=== PATIENT | male | born 1990 | race Caucasian/White ===

== ENCOUNTER 2021-05-26 21:24 | Emergency (ER) | payer OTHER, SELFPAY ==
[2021-05-26 21:29] VITALS: BP 125/92; PULSE 99; RESP 16; TEMP 36.9; O2SAT 95; BMI 80.6
--- NOTE | 2021-05-26 22:51 | ED.SKABFB ---
HPI - Skin/Abscess/Foreign Bdy General Chief complaint: Skin/Abscess/Foreign Body Stated complaint: Abscess Time Seen by Provider: 05/26/21 22:32 Source: patient Mode of arrival: ambulatory Limitations: no limitations History of Present Illness HPI narrative: Patient obese with history of recurrent abscesses in the lower part of abdomen wall started having similar in duration for last 1 week got worse last 2 days start draining pus from 2 sites with surrounding erythema no fever no chills Related Data Previous Rx's Medication Instructions Recorded cephalexin 500 mg capsule 500 mg PO QID 10 Days #40 cap 05/26/21 doxycycline hyclate 100 mg tablet 100 mg PO BID #20 tab 05/26/21 ibuprofen 600 mg tablet 600 mg PO Q6H PRN #20 tab 05/26/21 Allergies Allergy/AdvReac Type Severity Reaction Status Date / Time Sulfa (Sulfonamide AdvReac Mild BURNING EAR Unverified 01/26/20 16:23 Antibiotics) [SULFA (SULFONAMIDE ANTIBIOTICS)] Apples Allergy Unknown Itching Uncoded 05/26/21 21:29 Review of Systems Review of Systems: Yes all other systems are reviewed and are negative PMFSH Past Medical History Medical History Anxiety Depression HTN (hypertension) Obesity Social History Social History Advance Directives: No Advance Directives Information Provided: Yes Physical Exam Vital Signs: Vital Signs: Last Vital Signs Temp 98.5 F 05/26/21 21:29 Pulse 99 05/26/21 21:29 Resp 16 05/26/21 21:29 BP 125/92 H 05/26/21 21:29 Pulse Ox 95 05/26/21 21:29 BMI result Body Mass Index 80.6 Const: General: healthy appearing and comfortable Nutritional Appearance: obese Orientation/consciousness: patient oriented x3 Skin: Full body images: 1. inDuration with 2 open abscesses is draining serosanguineous fluid no pus drainage Neuro: General: patient oriented x3 MDM - Skin/Abscess/Foreign Bdy MDM Narrative Medical decision making narrative: Patient with small abscess in the lower part of the abdomen with surrounding erythema and induration I&D was done no pusdrain only the serosanguineous fluid came out patient discharged home on Keflex and doxycycline Procedures Abscess I/D Site: abdomen Side (if applicable): left Local Anesthetic: lidocaine 2% Amount of anesthesia used (mL): 5 Technique: incised with blade Amount of fluid expressed (mL): 2 Sent for culture/gram staining?: No Irrigation: No Packing used?: none Discharge Plan Discharge Clinical Impression: Abscess of skin or subcutaneous tissue Patient Disposition: Home, Self-Care Instructions: Abscess Incision and Drainage (DC) Additional Instructions: Local care as advised keep the area and dry Antibiotics as advised Report to the ER if increased redness or pain/fever Prescriptions: New cephalexin 500 mg capsule 500 mg PO QID 10 Days Qty: 40 RF: 0 ibuprofen 600 mg tablet 600 mg PO Q6H PRN (Reason: pain) Qty: 20 RF: 0 doxycycline hyclate 100 mg tablet 100 mg PO BID Qty: 20 RF: 0 Interventions: ED Discharge Assessment Last Done: 05/26/21 23:34 Discharge Date/Time: 05/26/21 23:36
[2021-05-26] MEDS: Lidocaine HCl 2 % MPF 5 ML VIAL 10 ML INFILTRATI (23:24)
[2021-05-26] MEDS: cephALEXin 500 MG CAPSULE PO (23:24)
== END 2021-05-26 23:36 | disposition home or self-care (01) ==
PROVIDERS: Emergency Provider Internal Medicine; PCP Internal Medicine
DX: L02.211 Cutaneous abscess of abdominal wall (principal); Z79.899 Other long term (current) drug therapy
CPT/HCPCS: 10060; 99284

== ENCOUNTER → 2021-06-24 12:30 | Outpatient (BNVA) | payer OTHER, SELFPAY | PROVIDERS: PCP Internal Medicine; Referring Provider Internal Medicine; Visit Provider Physician Assistant Surgical | DX: E66.01 Morbid (severe) obesity due to excess calories (principal); Z68.45 Body mass index [BMI] 70 or greater, adult | CPT/HCPCS: 99202 ==

== ENCOUNTER → 2021-07-22 15:03 | Outpatient (BNVA) | payer OTHER, SELFPAY | PROVIDERS: PCP Internal Medicine; Visit Provider Physician Assistant Surgical | DX: E66.01 Morbid (severe) obesity due to excess calories (principal); Z68.45 Body mass index [BMI] 70 or greater, adult; Z11.0 Encounter for screening for intestinal infectious diseases | CPT/HCPCS: 99211; 99212 ==

== ENCOUNTER 2021-07-23 16:04 | Outpatient (REF) | payer OTHER, SELFPAY ==
[2021-07-24 16:24] LABS: H Pylori Breath Test Negative (Negative)
== END 2021-07-23 16:05 | disposition home or self-care (01) ==
LOC: HO.LNP 16:04
PROVIDERS: Visit Provider Physician Assistant Surgical
DX: E66.01 Morbid (severe) obesity due to excess calories (principal); Z68.45 Body mass index [BMI] 70 or greater, adult; Z11.0 Encounter for screening for intestinal infectious diseases
CPT/HCPCS: 83013

== ENCOUNTER → 2021-07-31 08:52 | Outpatient (BNVA) | payer OTHER, SELFPAY | PROVIDERS: PCP Internal Medicine; Referring Provider Internal Medicine; Visit Provider Dietitian, Registered | DX: E66.01 Morbid (severe) obesity due to excess calories (principal); Z68.45 Body mass index [BMI] 70 or greater, adult | CPT/HCPCS: 97802 ==

== ENCOUNTER 2021-08-16 14:58 | Emergency (ER) | payer OTHER, SELFPAY ==
[2021-08-16 15:04] VITALS: BP 155/100; PULSE 92; RESP 18; TEMP 37.5; O2SAT 96; BMI 75.2
[2021-08-16 15:20] LABS: Glucose, Whole Blood 400 mg/dL (60-115)
[2021-08-16 15:48] LABS: Influenza A Negative (Negative); Influenza B2 Negative (Negative)
[2021-08-16 19:28] LABS: Basophils Percent Auto 0.1 % (0-2); Eosinophils Percent Auto 0.1 % (0-4); Hematocrit 49.9 % (42.0-52.0); Hemoglobin 16.2 g/dl (14.0-18.0); Imm Gran Abs Auto 0.04 X10*3/uL (0.00-0.03); Imm Gran Pct Auto 0.4 % (0.0-0.4); Lymphocytes Absolute Auto 1.9 X10*3/uL (1.2-4.9); Lymphocytes Percent Auto 17.6 % (20-40); MANUAL DIFF FLAG NO; Mean Corpuscular HGB Conc 32.5 g/dl (31.0-36.0); Mean Corpuscular Hemoglobin 27.7 pg (27.0-33.0); Mean Corpuscular Volume 85.3 fL (80.0-98.0); Mean Platelet Volume 10.3 fL (9.4-12.4); Monocytes Absolute Auto 0.6 X10*3/uL (0.1-1.2); Monocytes Percent Auto 5.5 % (2-11); Neutrophils Absolute Auto 8.1 x10*3/uL (2.0-8.3); Neutrophils Percent Auto 76.3 % (45-73); Platelet Count 253 X10*3/uL (160-400); Red Blood Count 5.85 X10*6/uL (4.60-5.80); Red Cell Distribution Width 15.1 % (11.0-16.0); White Blood Count 10.6 X10*3/uL (4.8-10.8)
[2021-08-16 19:58] LABS: Acetone, serum QL Small (Negative)
[2021-08-16 20:01] LABS: Alanine Aminotransferase 97 U/L (0-40); Albumin Level 4.1 g/dL (3.5-5.0); Alkaline Phosphatase 91 U/L (39-117); Anion Gap 20 (12-20); Aspartate Amino Transferase 78 U/L (5-37); Bilirubin Total 0.8 mg/dL (0.0-1.0); Blood Urea Nitrogen 9 mg/dL (9-16); Calcium 9.7 mg/dL (8.4-10.2); Carbon Dioxide 24 mmol/L (22-29); Chloride 92 mmol/L (96-108); Creatinine Clr Calc Pharmacy 208.5; Estimated Glomerular Filt Rate > 60; Glucose Random 350 mg/dL (60-115); Potassium 5.1 mmol/L (3.3-5.1); Sodium 131 mmol/L (135-145); Total Protein 8.7 g/dL (6.5-8.0)
--- NOTE | 2021-08-16 21:03 | ED.NAVMDI ---
HPI - Nausea/Vomiting/Diarrhea General Chief complaint: Nausea/Vomiting/Diarrhea Stated complaint: not feeling well could be his sugar level Time Seen by Provider: 08/16/21 21:02 Source: patient Mode of arrival: ambulatory Limitations: no limitations History of Present Illness HPI Narrative: 31-year-old male who is a prediabetic came in for evaluation of generalized weakness. Patient has been feeling generally weak with multiple vomiting today Related Data Home Medications Medication Instructions Recorded Confirmed aripiprazole 10 mg tablet (Abilify) 10 mg PO DAILY 06/24/21 07/22/21 hydrochlorothiazide 25 mg tablet 25 mg PO DAILY 06/24/21 07/22/21 Previous Rx's Medication Instructions Recorded metformin 500 mg tablet 500 mg PO BID #20 tab 08/16/21 Allergies Allergy/AdvReac Type Severity Reaction Status Date / Time Sulfa (Sulfonamide AdvReac Mild BURNING EAR Verified 07/22/21 15:38 Antibiotics) [SULFA (SULFONAMIDE ANTIBIOTICS)] Apples Allergy Unknown Itching Uncoded 07/22/21 15:38 PMFSH Past Medical History Medical History Anxiety Depression HTN (hypertension) Obesity Surgical History History of placement of ear tubes Hx of tonsillectomy Family History Family History Mother Diabetes Father Dialysis patient Hypertension Diabetes Sister Obesity Sister Obesity Sister No problems noted. Brother Diabetes Brother No problems noted. Brother No problems noted. Social History Social History Alcohol intake: current Alcohol intake frequency: does not drink Patient Tobacco Use Status: Current someday Tobacco user Tobacco use type: Cigarette Cigarettes Per Day: 2 Substance Use Type: Marijuana Advance Directives: No Advance Directives Information Provided: No Physical Exam Vital Signs: Vital Signs: Last Vital Signs Temp 99.5 F 08/16/21 15:04 Pulse 92 08/16/21 15:04 Resp 18 08/16/21 15:04 BP 155/100 H 08/16/21 15:04 Pulse Ox 96 08/16/21 15:04 BMI result Body Mass Index 75.2 vital signs have been reviewed as appeared to be correct. Blood pressure normal. Heart rate normal. Respiration rate normal. Temperature normal. Oxygen saturation normal. Appearance: Alert. Oriented X3. No acute distress. Head: Normal external exam. Normocephalic. Atraumatic. No Rhodes signs noted. No raccoon eyes noted Eyes: PERRLA. EOMI. Conjunctiva and sclera normal. Eyelids normal. ENT: TM's Normal. Pharynx normal. Uvula midline. Moist mucous membranes. No trismus noted. No drooling noted. No muffled voice noted. Neck: Normal inspection. Neck supple. FROM. No adenopathy. Thyroid Normal. No meningeal signs. No neck mass noted. CVS: Normal heart rate and rhythm. Heart sound normal. No murmurs noted. Pulses normal throughout. Respiratory: No respiratory distress. Painless inspiration. Breath sounds normal. No wheezes/rales/rhonchi noted. Chest nontender. No accessory muscle usage noted or decreased air movement noted. Abdomen: Soft and nontender. Bowel sounds normal in all 4 quadrants. No distention noted. No organomegaly noted. No visible injury noted. Back: No CVA tenderness. Full range of motion noted. Skin: Skin warm and dry. Normal skin color. Normal skin turgor. No rashes/lesions/lacerations noted. Extremities: No lower extremity edema. Extremities exhibit normal range of motion. Extremities nontender. Neuro: Oriented X 3. Cranial nerve exam: II-XII are grossly intact No motor deficit. No sensory deficit. Reflexes normal. Course Course Course Narrative: Assessment and plan. 31-year-old male who is prediabetic came in for evaluation of generalized body ache, nausea, vomiting, nonbloody watery diarrhea. Patient received IV hydration, now able to tolerate p.o. intake. Elevated blood sugar will start the patient on glucose fashion patient already has an appointment with his PCP early next week will start the patient on glucose fashion until he sees his PCP. MDM - Nausea/Vomiting/Diarrhea Medical Records Attestation: I reviewed the patient's medical records. Lab Data Attestation: I reviewed the patient's lab results. Result diagrams: 08/16/21 19:23 08/16/21 19:23 Labs: Lab Results 08/16/21 08/16/21 08/16/21 Range/Units 15:10 15:16 19:23 WBC 10.6 (4.8-10.8) X10*3/uL RBC 5.85 H (4.60-5.80) X10*6/uL Hgb 16.2 (14.0-18.0) g/dl Hct 49.9 (42.0-52.0) % MCV 85.3 (80.0-98.0) fL MCH 27.7 (27.0-33.0) pg MCHC 32.5 (31.0-36.0) g/dl RDW 15.1 (11.0-16.0) % Plt Count 253 (160-400) X10*3/uL MPV 10.3 (9.4-12.4) fL Immature Gran % (Auto) 0.4 (0.0-0.4) % Neut % (Auto) 76.3 H (45-73) % Lymph % (Auto) 17.6 L (20-40) % Geary % (Auto) 5.5 (2-11) % Eos % (Auto) 0.1 (0-4) % Baso % (Auto) 0.1 (0-2) % Lymph # (Auto) 1.9 (1.2-4.9) X10*3/uL Geary # (Auto) 0.6 (0.1-1.2) X10*3/uL Eos # (Auto) 0.0 (0.0-0.4) X10*3/uL Baso # (Auto) 0.0 (0.0-0.2) X10*3/uL Abs Immat Gran (auto) 0.04 H (0.00-0.03) X10*3/uL Absolute Neuts (auto) 8.1 (2.0-8.3) x10*3/uL Absolute Nucleated RBC 0.000 (0.0-0.012) X10*3/uL Nucleated RBC % (auto) 0.0 (0.0-0.2) /100WBC Sodium (135-145) mmol/L Potassium (3.3-5.1) mmol/L Chloride (96-108) mmol/L Carbon Dioxide (22-29) mmol/L Anion Gap (12-20) BUN (9-16) mg/dL Creatinine (0.5-1.4) mg/dL Estim Creat Clear Calc Estimated GFR POC Glucose 400 H* (60-115) mg/dL Random Glucose (60-115) mg/dL Calcium (8.4-10.2) mg/dL Total Bilirubin (0.0-1.0) mg/dL AST (5-37) U/L ALT (0-40) U/L Alkaline Phosphatase (39-117) U/L Total Protein (6.5-8.0) g/dL Albumin (3.5-5.0) g/dL Acetone, Qual (Negative) Influenza Type A (YAHIR) Negative (Negative) Influenza Type B (YAHIR) Negative (Negative) Influenza A & B Note See Note 08/16/21 08/16/21 08/16/21 Range/Units 19:23 22:26 23:25 WBC (4.8-10.8) X10*3/uL RBC (4.60-5.80) X10*6/uL Hgb (14.0-18.0) g/dl Hct (42.0-52.0) % MCV (80.0-98.0) fL MCH (27.0-33.0) pg MCHC (31.0-36.0) g/dl RDW (11.0-16.0) % Plt Count (160-400) X10*3/uL MPV (9.4-12.4) fL Immature Gran % (Auto) (0.0-0.4) % Neut % (Auto) (45-73) % Lymph % (Auto) (20-40) % Geary % (Auto) (2-11) % Eos % (Auto) (0-4) % Baso % (Auto) (0-2) % Lymph # (Auto) (1.2-4.9) X10*3/uL Geary # (Auto) (0.1-1.2) X10*3/uL Eos # (Auto) (0.0-0.4) X10*3/uL Baso # (Auto) (0.0-0.2) X10*3/uL Abs Immat Gran (auto) (0.00-0.03) X10*3/uL Absolute Neuts (auto) (2.0-8.3) x10*3/uL Absolute Nucleated RBC (0.0-0.012) X10*3/uL Nucleated RBC % (auto) (0.0-0.2) /100WBC Sodium 131 L (135-145) mmol/L Potassium 5.1 (3.3-5.1) mmol/L Chloride 92 L (96-108) mmol/L Carbon Dioxide 24 (22-29) mmol/L Anion Gap 20 (12-20) BUN 9 (9-16) mg/dL Creatinine 0.85 (0.5-1.4) mg/dL Estim Creat Clear Calc 208.5 Estimated GFR > 60 POC Glucose 359 H* 318 H (60-115) mg/dL Random Glucose 350 H* (60-115) mg/dL Calcium 9.7 (8.4-10.2) mg/dL Total Bilirubin 0.8 (0.0-1.0) mg/dL AST 78 H (5-37) U/L ALT 97 H (0-40) U/L Alkaline Phosphatase 91 (39-117) U/L Total Protein 8.7 H (6.5-8.0) g/dL Albumin 4.1 (3.5-5.0) g/dL Acetone, Qual Small H (Negative) Influenza Type A (YAHIR) (Negative) Influenza Type B (YAHIR) (Negative) Influenza A & B Note Discharge Plan Discharge Clinical Impression: Morbid obesity with BMI of 70 and over, adult, Gastroenteritis, Diabetes Patient Disposition: Home, Self-Care Instructions: Diabetes and Nutrition (ED) Prescriptions: New metformin 500 mg tablet 500 mg PO BID Qty: 20 0RF No Action aripiprazole [Abilify] 10 mg tablet 10 mg PO DAILY 0RF hydrochlorothiazide 25 mg tablet 25 mg PO DAILY 0RF Referrals: Nader Cortes III, MD [Primary Care Provider] -
[2021-08-16] MEDS: metFORMIN HCl 1,000 MG TABLET 1000 MG PO (22:21)
[2021-08-16] MEDS: 0.9 % Sodium Chloride 1,000 ML 999 ML IV ×2 (22:22→23:40)
[2021-08-16 22:30] LABS: Glucose, Whole Blood 359 mg/dL (60-115)
[2021-08-16 23:31] LABS: Glucose, Whole Blood 318 mg/dL (60-115)
[2021-08-16] MEDS: Insulin Lispro 100 UNIT/ML 3 ML VIAL SUBCUT (23:40)
[2021-08-17 00:19] VITALS: BP 168/92; PULSE 97; RESP 16; O2SAT 94
[2021-08-17 00:39] LABS: Glucose, Whole Blood 296 mg/dL (60-115)
== END 2021-08-17 00:52 | disposition home or self-care (01) ==
PROVIDERS: Emergency Provider Emergency Medicine; PCP Internal Medicine
DX: E66.01 Morbid (severe) obesity due to excess calories (principal); K52.9 Noninfective gastroenteritis and colitis, unspecified; E11.9 Type 2 diabetes mellitus without complications; R11.2 Nausea with vomiting, unspecified; Z68.45 Body mass index [BMI] 70 or greater, adult; Z79.899 Other long term (current) drug therapy; Z79.84 Long term (current) use of oral hypoglycemic drugs; F17.210 Nicotine dependence, cigarettes, uncomplicated; Z71.6 Tobacco abuse counseling
CPT/HCPCS: 36415; 80053; 82009; 82947; 85025; 87502; 96360; 96361; 99283; 99284

== ENCOUNTER → 2021-08-29 08:12 | Outpatient (BNVA) | payer OTHER, SELFPAY | PROVIDERS: PCP Internal Medicine; Referring Provider Physician Assistant Surgical; Visit Provider Dietitian, Registered | DX: E66.01 Morbid (severe) obesity due to excess calories (principal); Z68.45 Body mass index [BMI] 70 or greater, adult | CPT/HCPCS: 97803 ==

== ENCOUNTER 2021-09-25 10:00 | Outpatient (REF) | payer OTHER, SELFPAY ==
--- NOTE | ~2021-09-25 | XR_ITS ---
EXAMINATION: XR chest 2V CLINICAL INFORMATION: Reason for Exam E66.01 - Morbid (severe) obesity due to excess calories COMPARISON: Chest radiograph 05/29/2014 TECHNIQUE: 2 views of the chest XR/XR chest 2V FINDINGS/IMPRESSION: * Clear lungs. * No pneumothorax or pleural effusion. * Unchanged cardiomediastinal silhouette.
--- NOTE | ~2021-09-25 | FL_ITS ---
EXAMINATION: XR FLUOROSCOPY UPPER GI WITH AIR CLINICAL INFORMATION: Morbid obesity. COMPARISON: None TECHNIQUE: Air-contrast upper GI examination. FINDINGS: There is normal apposition of vocal cords while saying E . There is normal elevation of the soft palate while saying candy . Patient swallowed thin and thick barium and half-inch diameter barium tablet without difficulty. No nasopharyngeal reflux or tracheal aspiration was identified. No persistent esophageal stricture is seen. No mucosal abnormality was noted within the esophagus. No hiatal hernia is seen. There was spontaneous gastroesophageal reflux to the level of the thoracic inlet which cleared rapidly. The stomach demonstrated normal distensibility without abnormal mass or ulceration. There was no delay in gastric emptying. The duodenal bulb and sweep appeared unremarkable. FLUOROSCOPY TIME: 1.8 minutes DOSE AREA PRODUCT: 21.355 Gy-cm2 ([place]-centimeter squared) FL/FL upper GI w air IMPRESSION: Spontaneous gastroesophageal reflux which cleared rapidly. Otherwise unremarkable air-contrast upper GI examination.
== END 2021-09-25 10:01 | disposition home or self-care (01) ==
LOC: HO.XRAY 10:00
PROVIDERS: PCP Internal Medicine; Visit Provider Physician Assistant Surgical
DX: E66.01 Morbid (severe) obesity due to excess calories (principal); Z68.45 Body mass index [BMI] 70 or greater, adult
CPT/HCPCS: 71046; 74246

== ENCOUNTER → 2021-09-26 08:16 | Outpatient (BNVA) | payer OTHER, SELFPAY | PROVIDERS: PCP Internal Medicine; Referring Provider Physician Assistant Surgical; Visit Provider Dietitian, Registered | DX: Z13.89 Encounter for screening for other disorder (principal) ==

== ENCOUNTER 2022-01-11 15:41 | Emergency (ER) | payer OTHER, SELFPAY ==
[2022-01-11 15:56] VITALS: BP 122/95; PULSE 101; RESP 20; TEMP 37.2; O2SAT 96; BMI 67.8
[2022-01-11] MEDS: Lidocaine HCl 1 % MPF 2 ML VIAL INFILTRATI ×5 (18:55→19:11)
[2022-01-11 18:59] VITALS: BP 143/83; PULSE 96; RESP 16; O2SAT 97
--- NOTE | 2022-01-11 19:10 | ED.GENADULT ---
HPI - General Adult General Chief complaint: Wound/Laceration Stated complaint: abscess on leg Time Seen by Provider: 01/11/22 18:04 History of Present Illness HPI narrative: patient complains of painful area on left lower leg, he noticed a red small pimple there any squeezed it and now it is more painful and the redness is spreading no fever, no difficulty walking on it no knee pain no ankle pain Patient was recently diagnosed with diabetes and placed on metformin which he took for several weeks but stopped taking it, he has no dizziness no frequent urination no other complaint Related Data Home Medications Medication Instructions Recorded Confirmed aripiprazole 10 mg tablet (Abilify) 10 mg PO DAILY 06/24/21 07/22/21 hydrochlorothiazide 25 mg tablet 25 mg PO DAILY 06/24/21 07/22/21 Previous Rx's Medication Instructions Recorded metformin 500 mg tablet 500 mg PO BID #20 tabs 08/16/21 doxycycline hyclate 100 mg capsule 100 mg PO BID 7 days #14 caps 01/11/22 Allergies Allergy/AdvReac Type Severity Reaction Status Date / Time Sulfa (Sulfonamide AdvReac Mild BURNING EAR Verified 07/22/21 15:38 Antibiotics) [SULFA (SULFONAMIDE ANTIBIOTICS)] Apples Allergy Unknown Itching Uncoded 07/22/21 15:38 Review of Systems Review of Systems: positive for a sore on the left leg Negatives are no fever no chills no dizziness weakness no headache no neck pain no chest pain no abdominal pain no nausea or vomiting no dysuria no urinary frequency Yes all other systems are reviewed and are negative PMFSH Past Medical History PMFSH Narrative: recent history of diabetes, noncompliant with metformin Source: nursing notes reviewed Medical History Anxiety Depression HTN (hypertension) Obesity Surgical History History of placement of ear tubes Hx of tonsillectomy Family History Family History Mother Diabetes Father Dialysis patient Hypertension Diabetes Sister Obesity Sister Obesity Sister No problems noted. Brother Diabetes Brother No problems noted. Brother No problems noted. Social History Social History Alcohol intake: current Alcohol intake frequency: does not drink Patient Tobacco Use Status: Current someday Tobacco user Tobacco use type: Cigarette Cigarettes Per Day: 2 Substance Use Type: Marijuana Advance Directives: No Advance Directives Information Provided: No Physical Exam ED Vital Signs: Vital Signs - 24 hr 01/11/22 15:56 01/11/22 18:59 Temperature 98.9 F Pulse Rate 101 H 96 Respiratory Rate 20 16 Blood Pressure 122/95 H 143/83 H Pulse Oximetry 96 97 Oxygen Delivery Method Room Air Room Air BMI result Body Mass Index 67.8 general appearance comfortable no acute distress Head is normocephalic atraumatic Neck is supple Respiratory no distress The abdomen soft nontender Extremities full range of motion x4 The left leg the anterior lower leg there is a 3 cm x 4 cm area of redness with central fluctuance, there is mild tenderness there is no lymphangitis there is no discharge from the wound Neuro no focal motor sensory deficits, gait and balance are normal and interaction both comprehension and expression are normal Course Course Course Narrative: procedure note the left lower anterior leg abscess is cleansed and irrigated with normal saline, anesthesia is 8 cc of 1% lidocaine A small incision is made, it is probed to break up loculations and pus is drained Packing is placed and dressing is applied Glucose was checked and it was 144 Medical Decision Making Lab Data Labs: Lab Results 01/11/22 Range/Units 19:21 POC Glucose 144 H (60-115) mg/dL Discharge Plan Discharge Clinical Impression: Abscess Patient Disposition: Home, Self-Care Additional Instructions: return to the ER in 2 days for packing removal wound check Return any time for spreading redness, worse pain and swelling, fever, any sign of worsening infection any worse condition or any concerns Prescriptions: New doxycycline hyclate 100 mg capsule 100 mg PO BID 7 Days Qty: 14 0RF No Action metformin 500 mg tablet 500 mg PO BID Qty: 20 0RF aripiprazole [Abilify] 10 mg tablet 10 mg PO DAILY hydrochlorothiazide 25 mg tablet 25 mg PO DAILY
[2022-01-11 19:40] LABS: Glucose, Whole Blood 144 mg/dL (60-115)
== END 2022-01-12 08:04 | disposition home or self-care (01) ==
PROVIDERS: Emergency Provider Student in an Organized Health Care Education/Training Program; PCP Internal Medicine
DX: L02.416 Cutaneous abscess of left lower limb (principal)
CPT/HCPCS: 10060; 82947; 99283; 99284

== ENCOUNTER 2022-04-22 15:43 | Inpatient (IN) | payer OTHER, SELFPAY ==
--- NOTE | ~2022-04-22 | XR_ITS ---
EXAMINATION: XR CHEST CLINICAL INFORMATION: Elevated glucose COMPARISON: 09/25/2021 TECHNIQUE: 2 views of the chest were obtained. FINDINGS: No significant abnormality is noted involving the heart, lungs, mediastinum, bony thorax or soft tissues. XR/XR chest 2V IMPRESSION: Unremarkable examination.
--- NOTE | ~2022-04-22 | XR_ITS ---
EXAMINATION: LUMBAR SPINE AND SACRUM WITH COCCYX CLINICAL INFORMATION: Fall with back and buttocks pain COMPARISON: None TECHNIQUE: 3 views lumbar spine, 3 views sacrum and coccyx FINDINGS: Lumbar spine appears unremarkable. Some minimal spondylitic endplate changes are seen in the lower thoracic spine and to a lesser extent in the lumbar spine. Vertebral body heights and disc spaces are well preserved. No fractures are seen. The sacrum and coccyx appear normal. No fractures or bony destructive lesions are seen. XR/XR sacrum coccyx min 2V IMPRESSION: No evidence of a traumatic osseous injury. Mild degenerative changes as described above.
--- NOTE | ~2022-04-22 | US_ITS ---
EXAMINATION: US VENOUS ULTRASOUND WITH DOPPLER LOWER EXTREMITY, LEFT CLINICAL INFORMATION: Left leg swelling with calf pain COMPARISON: None TECHNIQUE: Ultrasound of the deep veins is performed from the hip to the calf with compression sonography and color and pulse Doppler assessment. Spectral analysis with color-flow imaging is performed. FINDINGS: There is normal venous compression and respiratory variation and augmented flow. The visualized common femoral vein, superficial femoral vein, profunda femoral vein, popliteal vein, and the trifurcation region shows no evidence of deep venous thrombosis. Peritoneal vein was not visualized. There is no significant popliteal fossa cyst. Prominent groin nodes are seen. If the patient's symptoms persist, followup ultrasound in 5 days 7 days might be of value to exclude proximal propagation from a non-visualized calf vein. US/US venous duplex LE LT IMPRESSION: No DVT demonstrated in the left lower extremity.
--- NOTE | ~2022-04-22 | XR_ITS ---
EXAMINATION: LUMBAR SPINE AND SACRUM WITH COCCYX CLINICAL INFORMATION: Fall with back and buttocks pain COMPARISON: None TECHNIQUE: 3 views lumbar spine, 3 views sacrum and coccyx FINDINGS: Lumbar spine appears unremarkable. Some minimal spondylitic endplate changes are seen in the lower thoracic spine and to a lesser extent in the lumbar spine. Vertebral body heights and disc spaces are well preserved. No fractures are seen. The sacrum and coccyx appear normal. No fractures or bony destructive lesions are seen. XR/XR lumbar spine 4V min IMPRESSION: No evidence of a traumatic osseous injury. Mild degenerative changes as described above.
[2022-04-22 16:57] VITALS: BP 136/77; PULSE 119; RESP 20; TEMP 36.4; O2SAT 93; BMI 72.1
--- NOTE | 2022-04-22 16:59 | ED_ITS ---
HPI - Recheck/Abnormal Lab/Rx General Chief Complaint: General Medical <KACYE Wisdom - Last Filed: 04/22/22 17:07> Stated Complaint: ?High blood sugar/Leg pain <KACEY Wisdom - Last Filed: 04/22/22 17:07> Time Seen by Provider: 04/22/22 20:54 <KACEY Wisdom - Last Filed: 04/22/22 17:07> Source: patient <Gordy Ruffin MD - Last Filed: 04/23/22 02:09> Mode of arrival: ambulatory <Gordy Ruffin MD - Last Filed: 04/23/22 02:09> Limitations: no limitations <Gordy Ruffin MD - Last Filed: 04/23/22 02:09> History of Present Illness HPI narrative: Patient morbidly obese history of diabetes noncompliant to his medications, schizophrenia stop taking his metformin for about an year as his blood sugar was better did not check his blood sugar for a while but for last few weeks been having increased urination and weakness checked his blood sugar was high started taking metformin off and on today prior to arrival patient blood sugar was 450 after he took his metformin also patient complaining of increased pain and redness of left leg for last few days with chills and subjective fever <Gordy Ruffin MD - Last Filed: 04/23/22 02:09> Related Data Home Medications: Home Medications Medication Instructions Recorded Confirmed aripiprazole 10 mg tablet (Abilify) 10 mg PO DAILY 06/24/21 07/22/21 hydrochlorothiazide 25 mg tablet 25 mg PO DAILY 06/24/21 07/22/21 Previous Rx's Medication Instructions Recorded metformin 500 mg tablet 500 mg PO BID #20 tabs 08/16/21 doxycycline hyclate 100 mg capsule 100 mg PO BID 7 days #14 caps 01/11/22 <KACEY Wisdom - Last Filed: 04/22/22 17:07> Allergies/Adverse Reactions: Allergies Allergy/AdvReac Type Severity Reaction Status Date / Time Sulfa (Sulfonamide AdvReac Mild BURNING EAR Verified 07/22/21 15:38 Antibiotics) [SULFA (SULFONAMIDE ANTIBIOTICS)] Apples Allergy Unknown Itching Uncoded 07/22/21 15:38 <KACEY Wisdom - Last Filed: 04/22/22 17:07> Review of Systems Review of Systems: Yes all other systems are reviewed and are negative <Gordy Ruffin MD - Last Filed: 04/23/22 02:09> [facility] Past Medical History Medical History: Medical History Anxiety Depression HTN (hypertension) Obesity <KACEY Wisdom - Last Filed: 04/22/22 17:07> Surgical History: Surgical History History of placement of ear tubes Hx of tonsillectomy <KACEY Wisdom - Last Filed: 04/22/22 17:07> Family History Family History: Family History Mother Diabetes Father Dialysis patient Hypertension Diabetes Sister Obesity Sister Obesity Sister No problems noted. Brother Diabetes Brother No problems noted. Brother No problems noted. <KACEY Wisdom - Last Filed: 04/22/22 17:07> Social History Social History: Social History Alcohol intake: current Alcohol intake frequency: a few times a month Alcohol type: hard liquor Patient Tobacco Use Status: Current someday Tobacco user Tobacco use type: Cigarette Cigarettes Per Day: 2 Smoked in Last 30 Days: Yes Use of substances other than those prescribed or required for medical reasons: Yes Substance Use Type: Marijuana Substance Use Frequency: Chronic Longstanding Advance Directives: No Advance Directives Information Provided: No <KACEY Wisdom - Last Filed: 04/22/22 17:07> Physical Exam Vital Signs: Vital Signs: Last Vital Signs Temp 98.3 F 04/22/22 21:13 Pulse 123 H 04/22/22 21:13 Resp 28 H 04/22/22 21:13 BP 148/88 H 04/22/22 21:13 Pulse Ox 94 04/22/22 21:13 O2 Del Method 04/22/22 21:13 BMI result Body Mass Index 72.1 <KACEY Wisdom - Last Filed: 04/22/22 17:07> Vital Signs: Last Vital Signs Temp 98.3 F 04/22/22 21:13 Pulse 123 H 04/22/22 21:13 Resp 28 H 04/22/22 21:13 BP 148/88 H 04/22/22 21:13 Pulse Ox 94 04/22/22 21:13 O2 Del Method 04/22/22 21:13 BMI result Body Mass Index 72.1 <Gordy Ruffin MD - Last Filed: 04/23/22 02:09> Appearance: Alert. Oriented X3. No acute distress. Obese Eyes: PERRLA, No Nystagmus ENT: Pharynx normal. Oral Mucosa moist Neck: Normal inspection. Neck supple. CVS: Normal heart rate and rhythm. Pulses normal. Respiratory: No respiratory distress. Equal air entry bilateral, no wheezing/rales/rhonchi Abdomen: Soft and nontender. Bowel sounds are present, no mass palpable, no CVA tenderness Skin: Skin warm and dry. Normal skin color. Normal skin turgor. Extremities: Bilateral nonpitting leg edema increased warmth and redness left lower extremity with chronic venous insufficiency changes slight tenderness Neuro: Oriented X 3. No motor deficit. 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 Reports he also had an episode of nausea vomiting last night. He was dizzy today and he fell onto his buttocks and is having coccyx pain. Denies head injury or loss of consciousness or prolonged down time. Also reports his left leg/calf is tender and his legs are swollen. He reports that he is concern for blood clot. Reports he has been very depressed as well. Denies any SI/HI/auditory visualizations thoughts of self- injury. Plan: Labs including acetone level, UA, POC, chest x-ray, EKG and venous duplex ultrasound of left lower extremity. Patient is stable will be sent back to the waiting room for further evaluation treatment the main ER. <KACEY Wisdom - Last Filed: 04/22/22 17:07> Medications Administered Generic Name Dose Route Start Last Admin Trade Name Maddi PRN Reason Stop Dose Admin Enoxaparin Sodium 40 mg 04/22/22 23:15 04/22/22 23:55 Enoxaparin Sodium 40 Mg/0.4 Ml Syringe SUBCUT 40 mg Q12H MALICK Administration Cefazolin Sodium/Dextrose 2 gm in 50 mls @ 100 mls/hr 04/22/22 23:15 04/23/22 00:52 Ancef IV 100 mls/hr Q8H MALICK Administration Lactated Ringer's 1,000 mls @ 100 mls/hr 04/22/22 23:15 04/23/22 00:55 Lr IVCONT 100 mls/hr .Q10H MALICK Administration Sodium Chloride 3 ml 04/23/22 00:00 04/23/22 00:09 0.9 % Sodium Chloride Flush 3 Ml Syringe IVFLUSH 3 ml QSHIFT MALICK Administration Discontinued Medications Generic Name Dose Route Start Last Admin Trade Name Maddi PRN Reason Stop Dose Admin Vancomycin HCl 2,000 mg in 520 mls @ 260 mls/hr 04/22/22 21:11 04/22/22 23:55 Vancomycin/Ns IV 04/22/22 23:10 260 mls/hr ONCE ONE Administration Cefepime HCl 2 gm/ Sodium 50 mls @ 100 mls/hr 04/22/22 21:13 04/22/22 23:12 Chloride IV 04/22/22 21:42 Infused ONCE ONE Infusion Sodium Chloride 1,000 mls @ 999 mls/hr 04/22/22 21:14 04/22/22 23:42 Ns IV 04/22/22 22:14 Infused .Q1H1M ONE Infusion Sodium Chloride 1,000 mls @ 999 mls/hr 04/22/22 21:15 04/22/22 23:55 Ns IV 04/22/22 22:15 999 mls/hr .Q1H1M ONE Administration Insulin Glargine 20 unit 04/22/22 21:15 04/22/22 22:33 Insulin Glargine,Hum.Rec.Anlog 100 Unit/Ml 10 Ml Vial SUBCUT 04/22/22 21:16 20 unit ONCE ONE Administration Insulin Human Lispro 14 unit 04/22/22 21:15 04/22/22 22:33 Insulin Lispro 100 Unit/Ml 3 Ml Vial SUBCUT 04/22/22 21:16 14 unit ONCE ONE Administration Insulin Human Lispro 15 unit 04/22/22 23:04 04/23/22 00:50 Insulin Lispro 100 Unit/Ml 3 Ml Vial SUBCUT 04/22/22 23:05 15 unit ONCE ONE Administration <KACEY Wisdom - Last Filed: 04/22/22 17:07> Medications Administered Generic Name Dose Route Start Last Admin Trade Name Maddi PRN Reason Stop Dose Admin Enoxaparin Sodium 40 mg 04/22/22 23:15 04/22/22 23:55 Enoxaparin Sodium 40 Mg/0.4 Ml Syringe SUBCUT 40 mg Q12H MALICK Administration Cefazolin Sodium/Dextrose 2 gm in 50 mls @ 100 mls/hr 04/22/22 23:15 04/23/22 00:52 Ancef IV 100 mls/hr Q8H MALICK Administration Lactated Ringer's 1,000 mls @ 100 mls/hr 04/22/22 23:15 04/23/22 00:55 Lr IVCONT 100 mls/hr .Q10H MALICK Administration Sodium Chloride 3 ml 04/23/22 00:00 04/23/22 00:09 0.9 % Sodium Chloride Flush 3 Ml Syringe IVFLUSH 3 ml QSHIFT MALICK Administration Discontinued Medications Generic Name Dose Route Start Last Admin Trade Name Maddi PRN Reason Stop Dose Admin Vancomycin HCl 2,000 mg in 520 mls @ 260 mls/hr 04/22/22 21:11 04/22/22 23:55 Vancomycin/Ns IV 04/22/22 23:10 260 mls/hr ONCE ONE Administration Cefepime HCl 2 gm/ Sodium 50 mls @ 100 mls/hr 04/22/22 21:13 04/22/22 23:12 Chloride IV 04/22/22 21:42 Infused ONCE ONE Infusion Sodium Chloride 1,000 mls @ 999 mls/hr 04/22/22 21:14 04/22/22 23:42 Ns IV 04/22/22 22:14 Infused .Q1H1M ONE Infusion Sodium Chloride 1,000 mls @ 999 mls/hr 04/22/22 21:15 04/22/22 23:55 Ns IV 04/22/22 22:15 999 mls/hr .Q1H1M ONE Administration Insulin Glargine 20 unit 04/22/22 21:15 04/22/22 22:33 Insulin Glargine,Hum.Rec.Anlog 100 Unit/Ml 10 Ml Vial SUBCUT 04/22/22 21:16 20 unit ONCE ONE Administration Insulin Human Lispro 14 unit 04/22/22 21:15 04/22/22 22:33 Insulin Lispro 100 Unit/Ml 3 Ml Vial SUBCUT 04/22/22 21:16 14 unit ONCE ONE Administration Insulin Human Lispro 15 unit 04/22/22 23:04 04/23/22 00:50 Insulin Lispro 100 Unit/Ml 3 Ml Vial SUBCUT 04/22/22 23:05 15 unit ONCE ONE Administration <Gordy Ruffin MD - Last Filed: 04/23/22 02:09> Medical Decision Making Medical Decision Making [facility] Narrative: Patient with type 2 diabetes noncompliant to medication nonketotic came elevated blood sugar noticed to have cellulitis of the left lower extremity also will admit patient for IV antibiotics diabetic Education blood sugar control as patient is very noncompliant to be followed up as outpatient <Gordy Ruffin MD - Last Filed: 04/23/22 02:09> Lab Data [facility] Lab Attestation statement: I reviewed the patient's lab results. <Gordy Ruffin MD - Last Filed: 04/23/22 02:09> Result Diagrams: : 04/22/22 22:19 04/22/22 17:46 <KACEY Wisdom - Last Filed: 04/22/22 17:07> Labs: Lab Results 04/22/22 04/22/22 04/22/22 Range/Units 17:46 17:46 17:46 WBC (4.8-10.8) X10*3/uL RBC (4.60-5.80) X10*6/uL Hgb (14.0-18.0) g/dl Hct (42.0-52.0) % MCV (80.0-98.0) fL MCH (27.0-33.0) pg MCHC (31.0-36.0) g/dl RDW (11.0-16.0) % Plt Count (160-400) X10*3/uL MPV (9.4-12.4) fL Immature Gran % (Auto) (0.0-0.4) % Neut % (Auto) (45-73) % Lymph % (Auto) (20-40) % [place] % (Auto) (2-11) % Eos % (Auto) (0-4) % Baso % (Auto) (0-2) % Lymph # (Auto) (1.2-4.9) X10*3/uL [place] # (Auto) (0.1-1.2) X10*3/uL Eos # (Auto) (0.0-0.4) X10*3/uL Baso # (Auto) (0.0-0.2) X10*3/uL Abs Immat Gran (auto) (0.00-0.03) X10*3/uL Absolute Neuts (auto) (2.0-8.3) x10*3/uL Absolute Nucleated RBC (0.0-0.012) X10*3/uL Nucleated RBC % (auto) (0.0-0.2) /100WBC PT (10.0-13.1) SEC INR (0.9-1.1) Sodium 126 L (135-145) mmol/L Potassium 4.6 (3.3-5.1) mmol/L Chloride 94 L (96-108) mmol/L Carbon Dioxide 22 (22-29) mmol/L Anion Gap 15 (12-20) BUN 7 L (9-16) mg/dL Creatinine 1.03 (0.5-1.4) mg/dL Estim Creat Clear Calc 167.2 Estimated GFR > 60 POC Glucose (60-115) mg/dL Random Glucose 483 H* (60-115) mg/dL Estimat Average Glucose 289 mg/dL Hemoglobin A1c % 11.7 % Lactic Acid (0.5-2.0) mmol/L Calcium 8.8 D (8.4-10.2) mg/dL Magnesium 1.6 (1.6-2.6) mg/dL Total Bilirubin 1.3 H (0.0-1.0) mg/dL AST 36 (5-37) U/L ALT 33 (0-40) U/L Alkaline Phosphatase 82 (39-117) U/L B-Natriuretic Peptide 47 (<100) pg/mL Total Protein 7.1 (6.5-8.0) g/dL Albumin 3.6 (3.5-5.0) g/dL Acetone, Qual Negative (Negative) 04/22/22 04/22/22 04/22/22 Range/Units 21:17 21:44 22:19 WBC 14.8 H (4.8-10.8) X10*3/uL RBC 5.13 (4.60-5.80) X10*6/uL Hgb 14.1 (14.0-18.0) g/dl Hct 42.8 (42.0-52.0) % MCV 83.4 (80.0-98.0) fL MCH 27.5 (27.0-33.0) pg MCHC 32.9 (31.0-36.0) g/dl RDW 13.9 (11.0-16.0) % Plt Count 183 D (160-400) X10*3/uL MPV 10.1 (9.4-12.4) fL Immature Gran % (Auto) 0.8 H (0.0-0.4) % Neut % (Auto) 85.1 H (45-73) % Lymph % (Auto) 8.6 L (20-40) % [place] % (Auto) 5.3 (2-11) % Eos % (Auto) 0.0 (0-4) % Baso % (Auto) 0.2 (0-2) % Lymph # (Auto) 1.3 (1.2-4.9) X10*3/uL [place] # (Auto) 0.8 (0.1-1.2) X10*3/uL Eos # (Auto) 0.0 (0.0-0.4) X10*3/uL Baso # (Auto) 0.0 (0.0-0.2) X10*3/uL Abs Immat Gran (auto) 0.12 H (0.00-0.03) X10*3/uL Absolute Neuts (auto) 12.6 H (2.0-8.3) x10*3/uL Absolute Nucleated RBC 0.000 (0.0-0.012) X10*3/uL Nucleated RBC % (auto) 0.0 (0.0-0.2) /100WBC PT (10.0-13.1) SEC INR (0.9-1.1) Sodium (135-145) mmol/L Potassium (3.3-5.1) mmol/L Chloride (96-108) mmol/L Carbon Dioxide (22-29) mmol/L Anion Gap (12-20) BUN (9-16) mg/dL Creatinine (0.5-1.4) mg/dL Estim Creat Clear Calc Estimated GFR POC Glucose 437 H* (60-115) mg/dL Random Glucose (60-115) mg/dL Estimat Average Glucose mg/dL Hemoglobin A1c % % Lactic Acid 1.7 (0.5-2.0) mmol/L Calcium (8.4-10.2) mg/dL Magnesium (1.6-2.6) mg/dL Total Bilirubin (0.0-1.0) mg/dL AST (5-37) U/L ALT (0-40) U/L Alkaline Phosphatase (39-117) U/L B-Natriuretic Peptide (<100) pg/mL Total Protein (6.5-8.0) g/dL Albumin (3.5-5.0) g/dL Acetone, Qual (Negative) 04/22/22 Range/Units 22:19 WBC (4.8-10.8) X10*3/uL RBC (4.60-5.80) X10*6/uL Hgb (14.0-18.0) g/dl Hct (42.0-52.0) % MCV (80.0-98.0) fL MCH (27.0-33.0) pg MCHC (31.0-36.0) g/dl RDW (11.0-16.0) % Plt Count (160-400) X10*3/uL MPV (9.4-12.4) fL Immature Gran % (Auto) (0.0-0.4) % Neut % (Auto) (45-73) % Lymph % (Auto) (20-40) % [place] % (Auto) (2-11) % Eos % (Auto) (0-4) % Baso % (Auto) (0-2) % Lymph # (Auto) (1.2-4.9) X10*3/uL [place] # (Auto) (0.1-1.2) X10*3/uL Eos # (Auto) (0.0-0.4) X10*3/uL Baso # (Auto) (0.0-0.2) X10*3/uL Abs Immat Gran (auto) (0.00-0.03) X10*3/uL Absolute Neuts (auto) (2.0-8.3) x10*3/uL Absolute Nucleated RBC (0.0-0.012) X10*3/uL Nucleated RBC % (auto) (0.0-0.2) /100WBC PT 16.3 H (10.0-13.1) SEC INR 1.4 H (0.9-1.1) Sodium (135-145) mmol/L Potassium (3.3-5.1) mmol/L Chloride (96-108) mmol/L Carbon Dioxide (22-29) mmol/L Anion Gap (12-20) BUN (9-16) mg/dL Creatinine (0.5-1.4) mg/dL Estim Creat Clear Calc Estimated GFR POC Glucose (60-115) mg/dL Random Glucose (60-115) mg/dL Estimat Average Glucose mg/dL Hemoglobin A1c % % Lactic Acid (0.5-2.0) mmol/L Calcium (8.4-10.2) mg/dL Magnesium (1.6-2.6) mg/dL Total Bilirubin (0.0-1.0) mg/dL AST (5-37) U/L ALT (0-40) U/L Alkaline Phosphatase (39-117) U/L B-Natriuretic Peptide (<100) pg/mL Total Protein (6.5-8.0) g/dL Albumin (3.5-5.0) g/dL Acetone, Qual (Negative) <KACEY iWsdom - Last Filed: 04/22/22 17:07> Lab Results 04/22/22 04/22/22 04/22/22 Range/Units 17:46 17:46 17:46 WBC (4.8-10.8) X10*3/uL RBC (4.60-5.80) X10*6/uL Hgb (14.0-18.0) g/dl Hct (42.0-52.0) % MCV (80.0-98.0) fL MCH (27.0-33.0) pg MCHC (31.0-36.0) g/dl RDW (11.0-16.0) % Plt Count (160-400) X10*3/uL MPV (9.4-12.4) fL Immature Gran % (Auto) (0.0-0.4) % Neut % (Auto) (45-73) % Lymph % (Auto) (20-40) % [place] % (Auto) (2-11) % Eos % (Auto) (0-4) % Baso % (Auto) (0-2) % Lymph # (Auto) (1.2-4.9) X10*3/uL [place] # (Auto) (0.1-1.2) X10*3/uL Eos # (Auto) (0.0-0.4) X10*3/uL Baso # (Auto) (0.0-0.2) X10*3/uL Abs Immat Gran (auto) (0.00-0.03) X10*3/uL Absolute Neuts (auto) (2.0-8.3) x10*3/uL Absolute Nucleated RBC (0.0-0.012) X10*3/uL Nucleated RBC % (auto) (0.0-0.2) /100WBC PT (10.0-13.1) SEC INR (0.9-1.1) Sodium 126 L (135-145) mmol/L Potassium 4.6 (3.3-5.1) mmol/L Chloride 94 L (96-108) mmol/L Carbon Dioxide 22 (22-29) mmol/L Anion Gap 15 (12-20) BUN 7 L (9-16) mg/dL Creatinine 1.03 (0.5-1.4) mg/dL Estim Creat Clear Calc 167.2 Estimated GFR > 60 POC Glucose (60-115) mg/dL Random Glucose 483 H* (60-115) mg/dL Estimat Average Glucose 289 mg/dL Hemoglobin A1c % 11.7 % Lactic Acid (0.5-2.0) mmol/L Calcium 8.8 D (8.4-10.2) mg/dL Magnesium 1.6 (1.6-2.6) mg/dL Total Bilirubin 1.3 H (0.0-1.0) mg/dL AST 36 (5-37) U/L ALT 33 (0-40) U/L Alkaline Phosphatase 82 (39-117) U/L B-Natriuretic Peptide 47 (<100) pg/mL Total Protein 7.1 (6.5-8.0) g/dL Albumin 3.6 (3.5-5.0) g/dL Acetone, Qual Negative (Negative) 04/22/22 04/22/22 04/22/22 Range/Units 21:17 21:44 22:19 WBC 14.8 H (4.8-10.8) X10*3/uL RBC 5.13 (4.60-5.80) X10*6/uL Hgb 14.1 (14.0-18.0) g/dl Hct 42.8 (42.0-52.0) % MCV 83.4 (80.0-98.0) fL MCH 27.5 (27.0-33.0) pg MCHC 32.9 (31.0-36.0) g/dl RDW 13.9 (11.0-16.0) % Plt Count 183 D (160-400) X10*3/uL MPV 10.1 (9.4-12.4) fL Immature Gran % (Auto) 0.8 H (0.0-0.4) % Neut % (Auto) 85.1 H (45-73) % Lymph % (Auto) 8.6 L (20-40) % [place] % (Auto) 5.3 (2-11) % Eos % (Auto) 0.0 (0-4) % Baso % (Auto) 0.2 (0-2) % Lymph # (Auto) 1.3 (1.2-4.9) X10*3/uL [place] # (Auto) 0.8 (0.1-1.2) X10*3/uL Eos # (Auto) 0.0 (0.0-0.4) X10*3/uL Baso # (Auto) 0.0 (0.0-0.2) X10*3/uL Abs Immat Gran (auto) 0.12 H (0.00-0.03) X10*3/uL Absolute Neuts (auto) 12.6 H (2.0-8.3) x10*3/uL Absolute Nucleated RBC 0.000 (0.0-0.012) X10*3/uL Nucleated RBC % (auto) 0.0 (0.0-0.2) /100WBC PT (10.0-13.1) SEC INR (0.9-1.1) Sodium (135-145) mmol/L Potassium (3.3-5.1) mmol/L Chloride (96-108) mmol/L Carbon Dioxide (22-29) mmol/L Anion Gap (12-20) BUN (9-16) mg/dL Creatinine (0.5-1.4) mg/dL Estim Creat Clear Calc Estimated GFR POC Glucose 437 H* (60-115) mg/dL Random Glucose (60-115) mg/dL Estimat Average Glucose mg/dL Hemoglobin A1c % % Lactic Acid 1.7 (0.5-2.0) mmol/L Calcium (8.4-10.2) mg/dL Magnesium (1.6-2.6) mg/dL Total Bilirubin (0.0-1.0) mg/dL AST (5-37) U/L ALT (0-40) U/L Alkaline Phosphatase (39-117) U/L B-Natriuretic Peptide (<100) pg/mL Total Protein (6.5-8.0) g/dL Albumin (3.5-5.0) g/dL Acetone, Qual (Negative) 04/22/22 Range/Units 22:19 WBC (4.8-10.8) X10*3/uL RBC (4.60-5.80) X10*6/uL Hgb (14.0-18.0) g/dl Hct (42.0-52.0) % MCV (80.0-98.0) fL MCH (27.0-33.0) pg MCHC (31.0-36.0) g/dl RDW (11.0-16.0) % Plt Count (160-400) X10*3/uL MPV (9.4-12.4) fL Immature Gran % (Auto) (0.0-0.4) % Neut % (Auto) (45-73) % Lymph % (Auto) (20-40) % [place] % (Auto) (2-11) % Eos % (Auto) (0-4) % Baso % (Auto) (0-2) % Lymph # (Auto) (1.2-4.9) X10*3/uL [place] # (Auto) (0.1-1.2) X10*3/uL Eos # (Auto) (0.0-0.4) X10*3/uL Baso # (Auto) (0.0-0.2) X10*3/uL Abs Immat Gran (auto) (0.00-0.03) X10*3/uL Absolute Neuts (auto) (2.0-8.3) x10*3/uL Absolute Nucleated RBC (0.0-0.012) X10*3/uL Nucleated RBC % (auto) (0.0-0.2) /100WBC PT 16.3 H (10.0-13.1) SEC INR 1.4 H (0.9-1.1) Sodium (135-145) mmol/L Potassium (3.3-5.1) mmol/L Chloride (96-108) mmol/L Carbon Dioxide (22-29) mmol/L Anion Gap (12-20) BUN (9-16) mg/dL Creatinine (0.5-1.4) mg/dL Estim Creat Clear Calc Estimated GFR POC Glucose (60-115) mg/dL Random Glucose (60-115) mg/dL Estimat Average Glucose mg/dL Hemoglobin A1c % % Lactic Acid (0.5-2.0) mmol/L Calcium (8.4-10.2) mg/dL Magnesium (1.6-2.6) mg/dL Total Bilirubin (0.0-1.0) mg/dL AST (5-37) U/L ALT (0-40) U/L Alkaline Phosphatase (39-117) U/L B-Natriuretic Peptide (<100) pg/mL Total Protein (6.5-8.0) g/dL Albumin (3.5-5.0) g/dL Acetone, Qual (Negative) <Gordy Ruffin MD - Last Filed: 04/23/22 02:09> Discharge Plan Discharge Clinical Impression: Hyperglycemia due to type 2 diabetes mellitus, Cellulitis of left leg <KACEY Wisdom - Last Filed: 04/22/22 17:07> Patient Disposition: Admitted As Inpatient <KACEY Wisdom - Last Filed: 04/22/22 17:07>
--- NOTE | 2022-04-22 17:01 | ECG_ITS ---
Test Reason : ELEVATED GLUCOSE Blood Pressure : / mmHG Vent. Rate : 121 BPM Atrial Rate : 121 BPM P-R Int : 144 ms QRS Dur : 078 ms QT Int : 284 ms P-R-T Axes : 042 020 013 degrees QTc Int : 403 ms Sinus tachycardia Otherwise normal ECG When compared with ECG of 30-MAY-2019 13:42, Increased rate Referred By: Michaela Myrick Electronically Signed By:SELENA KENDRICK
[2022-04-22 18:19] LABS: Alanine Aminotransferase 33 U/L (0-40); Albumin Level 3.6 g/dL (3.5-5.0); Alkaline Phosphatase 82 U/L (39-117); Anion Gap 15 (12-20); Aspartate Amino Transferase 36 U/L (5-37); Bilirubin Total 1.3 mg/dL (0.0-1.0); Blood Urea Nitrogen 7 mg/dL (9-16); Calcium 8.8 mg/dL (8.4-10.2); Carbon Dioxide 22 mmol/L (22-29); Chloride 94 mmol/L (96-108); Creatinine Clr Calc Pharmacy 167.2; Estimated Glomerular Filt Rate > 60; Glucose Random 483 mg/dL (60-115); Magnesium 1.6 mg/dL (1.6-2.6); Potassium 4.6 mmol/L (3.3-5.1); Sodium 126 mmol/L (135-145); Total Protein 7.1 g/dL (6.5-8.0)
[2022-04-22 18:22] LABS: B Type Natriuretic Peptide 47 pg/mL (<100)
[2022-04-22 18:24] LABS: Acetone, serum QL Negative (Negative)
[2022-04-22 18:33] LABS: Estimated Average Glucose 289 mg/dL; Hemoglobin A1c % 11.7 %
[2022-04-22 21:13] VITALS: BP 148/88; PULSE 123; RESP 28; TEMP 36.8; O2SAT 94
[2022-04-22 21:22] LABS: Glucose, Whole Blood 437 mg/dL (60-115)
[2022-04-22 22:07] LABS: Lactic Acid 1.7 mmol/L (0.5-2.0)
[2022-04-22 22:24] LABS: MANUAL DIFF FLAG NO
[2022-04-22 22:25] LABS: Basophils Percent Auto 0.2 % (0-2); Hematocrit 42.8 % (42.0-52.0); Hemoglobin 14.1 g/dl (14.0-18.0); Imm Gran Abs Auto 0.12 X10*3/uL (0.00-0.03); Imm Gran Pct Auto 0.8 % (0.0-0.4); Lymphocytes Absolute Auto 1.3 X10*3/uL (1.2-4.9); Lymphocytes Percent Auto 8.6 % (20-40); Mean Corpuscular HGB Conc 32.9 g/dl (31.0-36.0); Mean Corpuscular Hemoglobin 27.5 pg (27.0-33.0); Mean Corpuscular Volume 83.4 fL (80.0-98.0); Mean Platelet Volume 10.1 fL (9.4-12.4); Monocytes Absolute Auto 0.8 X10*3/uL (0.1-1.2); Monocytes Percent Auto 5.3 % (2-11); Neutrophils Absolute Auto 12.6 x10*3/uL (2.0-8.3); Neutrophils Percent Auto 85.1 % (45-73); Platelet Count 183 X10*3/uL (160-400); Red Blood Count 5.13 X10*6/uL (4.60-5.80); Red Cell Distribution Width 13.9 % (11.0-16.0); White Blood Count 14.8 X10*3/uL (4.8-10.8)
[2022-04-22 22:31] LABS: INTERNATIONAL NORM RATIO 1.4 (0.9-1.1); Prothrombin Time 16.3 SEC (10.0-13.1)
[2022-04-22] MEDS: 0.9 % Sodium Chloride 1,000 ML 999 ML IV ×2 (22:31→23:55)
[2022-04-22] MEDS: cefEPime HCl 2 GM in 0.9 % Sodium Chloride 50 ML IV (22:31)
[2022-04-22] MEDS: Insulin Lispro 100 UNIT/ML 3 ML VIAL 14 UNIT SUBCUT (22:33)
[2022-04-22] MEDS: Insulin Glargine,Hum.rec.anlog 100 UNIT/ML 10 ML VIAL 20 UNIT SUBCUT (22:33)
--- NOTE | 2022-04-22 22:37 | PC.NURSE ---
pt a&ox3, multiple attempts made by RNs to draw labs/place IV, u/s IV placed, labs obtained, medicated per provider order. no new orders at this time.
[2022-04-22] MEDS: Enoxaparin Sodium 40 MG/0.4 ML SYRINGE SUBCUT (23:55)
--- NOTE | 2022-04-22 23:56 | PC.NURSE ---
Assumed care of patient. Vancomycin already delayed at time of report given.
[2022-04-23] MEDS: 0.9 % Sodium Chloride Flush 3 ML SYRINGE IVFLUSH (00:09)
[2022-04-23 00:40] LABS: Glucose, Whole Blood 353 mg/dL (60-115)
[2022-04-23] MEDS: Insulin Lispro 100 UNIT/ML 3 ML VIAL 15 UNIT SUBCUT (00:50)
[2022-04-23] MEDS: ceFAZolin Sodium/Dextrose,Iso 2 GM/50 ML PIGGYBACK IV ×4 (00:52→22:20)
[2022-04-23] MEDS: Lactated Ringers 1,000 ML 100 ML IVCONT ×3 (00:55→17:59)
[2022-04-23 02:35] VITALS: BP 102/47; PULSE 110; TEMP 37; O2SAT 94
--- NOTE | 2022-04-23 02:40 | PC.NURSE ---
Patiemt is alert amd oriemted.Temds to desat to high 80s O2 while sleepimg. Patiemt placed om 3L masal cammula O2 imcreased to 94%. L leg cellulitis warm to touch.
--- NOTE | 2022-04-23 02:48 | PC.NURSE ---
Resting quietly. No apparent distress. No respiratory distress, able to speak in full sentences.
[2022-04-23 02:53] LABS: Appearance Urine Clear; Color Urine Yellow; Glucose Urine UA >=1000 mg/dL (Negative); Leukocyte Esterase Urine Negative (Negative); Nitrite Urine Negative (Negative); PH 5.5 (5.0-9.0); Specific Gravity - Urine >= 1.030 (1.005-1.025); UMIC TRIGGER UACC YES; Urine Blood Trace (Negative); Urine Ketones 80 mg/dL (Negative); Urine Protein 300 (3+) mg/dL (Neg-Trace)
[2022-04-23 03:07] LABS: Granular Casts Urine Present; RBC Urine 0-2 /HPF (0-2); UACC Culture Trigger YES
[2022-04-23 03:09] LABS: Bacteria Urine Trace (None Seen)
[2022-04-23 06:12] VITALS: BP 100/46; PULSE 117; TEMP 36.8; O2SAT 95
[2022-04-23 06:48] LABS: MANUAL DIFF FLAG NO
[2022-04-23 06:54] LABS: Basophils Percent Auto 0.2 % (0-2); Hemoglobin 13.2 g/dl (14.0-18.0); Imm Gran Abs Auto 0.11 X10*3/uL (0.00-0.03); Imm Gran Pct Auto 0.8 % (0.0-0.4); Lymphocytes Absolute Auto 1.3 X10*3/uL (1.2-4.9); Lymphocytes Percent Auto 9.5 % (20-40); Mean Corpuscular Hemoglobin 27.5 pg (27.0-33.0); Mean Corpuscular Volume 83.3 fL (80.0-98.0); Mean Platelet Volume 10.5 fL (9.4-12.4); Monocytes Absolute Auto 0.6 X10*3/uL (0.1-1.2); Monocytes Percent Auto 4.8 % (2-11); Neutrophils Absolute Auto 11.3 x10*3/uL (2.0-8.3); Neutrophils Percent Auto 84.7 % (45-73); Platelet Count 168 X10*3/uL (160-400); Red Cell Distribution Width 13.9 % (11.0-16.0); White Blood Count 13.3 X10*3/uL (4.8-10.8)
--- NOTE | 2022-04-23 07:17 | P.HPHOSP_ITS ---
History of Present Illness Date of Service: 04/22/22 Chief Complaint: hyperglyceimia, leg infection this is a 31-year-old male with past medical history of type 2 diabetes on metformin, schizophrenia, morbid obesity, hypertension, presents to the hospital with complaints of hyperglycemia as well as lower extremity swelling and pain. Patient reports that he stop taking his metformin about a month ago because his glucose was improving and was normal. He also had diarrhea due to the medication and therefore he stopped with a talking to his doctor. He is complaining of left lower extremity redness, pain that started 3 days ago. Patient reports no injury or trauma. Patient denies any fever or chills, denies any chest pain, no palpitations, no abdominal pain no diarrhea or constipation, no urinary symptoms and no headache or change in vision. On arrival to the ED patient hemodynamically stable with a heart rate of 119, patient also has an elevated respiratory rate of 28, Labs are significant for WBC count of 14.8, PT of 6-3, INR of 1.4, glucose of 483, hemoglobin A1c of 11.7, urine negative for infection ,Lactic acid of 1.7 venous duplex of lower extremity shows no DVT Review of Systems Review of Systems: Yes all other systems are reviewed and are negative PMFSH Medical History Anxiety Depression HTN (hypertension) Hyperglycemia due to type 2 diabetes mellitus Obesity Family History Mother Diabetes Father Dialysis patient Hypertension Diabetes Sister Obesity Sister Obesity Sister No problems noted. Brother Diabetes Brother No problems noted. Brother No problems noted. Surgical History History of placement of ear tubes Hx of tonsillectomy Social History Alcohol intake: current Alcohol intake frequency: a few times a month Alcohol type: hard liquor Patient Tobacco Use Status: Current someday Tobacco user Tobacco use type: Cigarette Cigarettes Per Day: 2 Smoked in Last 30 Days: Yes Use of substances other than those prescribed or required for medical reasons: Yes Substance Use Type: Marijuana Substance Use Frequency: Chronic Longstanding Advance Directives: No Advance Directives Information Provided: No Meds Allergies Allergy/AdvReac Type Severity Reaction Status Date / Time Sulfa (Sulfonamide AdvReac Mild BURNING EAR Verified 07/22/21 15:38 Antibiotics) [SULFA (SULFONAMIDE ANTIBIOTICS)] Apples Allergy Unknown Itching Uncoded 07/22/21 15:38 Active Medications: Current Medications Acetaminophen (Acetaminophen 325 Mg Tablet) 650 mg PO Q6H PRN PRN Reason: Pain, Mild (Pain Scale 1-3) Dextrose (Dextrose 50 % 25 Gm/50 Ml Syringe) 25 gm IVPUSH Q15M PRN; Protocol PRN Reason: per Hypoglycemia Standing Ord. Docusate Sodium (Docusate Sodium 100 Mg Capsule) 100 mg PO DAILY PRN PRN Reason: Constipation Enoxaparin Sodium (Enoxaparin Sodium 40 Mg/0.4 Ml Syringe) 40 mg SUBCUT Q12H [facility] Last Admin: 04/22/22 23:55 Dose: 40 mg Glucose (Glucose Gel 15 Gm Gel..Gram.) 15 gm PO Q15M PRN; Protocol PRN Reason: per Hypoglycemia Standing Ord. Cefazolin Sodium/Dextrose (Ancef) 2 gm in 50 mls @ 100 mls/hr IV Q8H [facility] Last Infusion: 04/23/22 01:35 Dose: Infused Lactated Ringer's (Lr) 1,000 mls @ 100 mls/hr IVCONT .Q10H [facility] Last Admin: 04/23/22 00:55 Dose: 100 mls/hr Insulin Human Lispro (Insulin Lispro 100 Unit/Ml 3 Ml Vial) 0 unit SUBCUT QIDACHS [facility]; Protocol Ondansetron HCl (Ondansetron Hcl 4 Mg/2 Ml Vial) 4 mg IVPUSH Q8H PRN PRN Reason: Nausea and Vomiting Oxycodone HCl (Oxycodone Hcl Immed Release 5 Mg Tablet) 5 mg PO Q6H PRN PRN Reason: Pain, Severe (Pain Scale 7-10) Pharmacy Consult (Consult Rx Vancomycin Dosing) 1 each MISCELLANE DAILY PRN PRN Reason: Consult order Pharmacy Consult (Consult Rx Perform Med Rec) 1 each MISCELLANE ONCE PRN PRN Reason: Consult order Sodium Chloride (0.9 % Sodium Chloride Flush 3 Ml Syringe) 3 ml IVFLUSH QSHIFT [facility] Last Admin: 04/23/22 00:09 Dose: 3 ml Home Medications Medication Instructions Recorded Confirmed Last Taken Type aripiprazole 10 mg tablet (Abilify) 10 mg PO DAILY 06/24/21 07/22/21 Unknown History hydrochlorothiazide 25 mg tablet 25 mg PO DAILY 06/24/21 07/22/21 Unknown History Physical Exam Vital Signs and Narrative: Vital Signs: Last Vital Signs Temp 98.3 F 04/23/22 06:12 Pulse 117 H 04/23/22 06:12 Resp 28 H 04/22/22 21:13 BP 100/46 L 04/23/22 06:12 Pulse Ox 95 04/23/22 06:12 O2 Del Method 04/23/22 06:12 O2 Flow Rate 4 04/23/22 06:12 BMI result Body Mass Index 72.1 Const: General: cooperative and no acute distress Orientation/consciousness: patient oriented x3 Eyes: General: appearance normal, both eyes and all related structures Resp: Effort & Inspection: normal respiratory effort Auscultation: clear to auscultation bilaterally Cardio: Rate: regular rate Rhythm: regular rhythm GI: Palpation (GI): Soft to palpation Auscultation: normal bowel sounds Skin: General skin exam: no rashes or lesions noted Neuro: General: patient oriented x3 Cognition (Neuro): normal cognition Extrem: Other: left lower extremity erythema, tenderness, edema, warmth, extending from the base of the foot all the way to the knee Results Labs CBC and Chem 7: 04/23/22 06:19 04/22/22 17:46 Labs: Laboratory Results - last 24 hr 04/22/22 04/22/22 04/22/22 17:46 17:46 17:46 MCV MCH MCHC RDW Plt Count MPV Immature Gran % (Auto) Neut % (Auto) Lymph % (Auto) [place] % (Auto) Eos % (Auto) Baso % (Auto) Lymph # (Auto) [place] # (Auto) Eos # (Auto) Baso # (Auto) Abs Immat Gran (auto) Absolute Neuts (auto) Absolute Nucleated RBC Nucleated RBC % (auto) PT INR Anion Gap 15 Estim Creat Clear Calc 167.2 Estimated GFR > 60 POC Glucose Random Glucose 483 H* Estimat Average Glucose 289 Hemoglobin A1c % 11.7 Lactic Acid Calcium 8.8 D Magnesium 1.6 Total Bilirubin 1.3 H AST 36 ALT 33 Alkaline Phosphatase 82 B-Natriuretic Peptide 47 Total Protein 7.1 Albumin 3.6 Urine Color Urine Appearance Urine pH Ur Specific [place] Urine Protein Urine Glucose (UA) Urine Ketones Urine Blood Urine Nitrite Ur Leukocyte Esterase Urine RBC Urine WBC Ur Squamous Epith Cells Urine Bacteria Hyaline Casts Granular Casts Acetone, Qual Negative 04/22/22 04/22/22 04/22/22 21:17 21:44 22:19 MCV 83.4 MCH 27.5 MCHC 32.9 RDW 13.9 Plt Count 183 D MPV 10.1 Immature Gran % (Auto) 0.8 H Neut % (Auto) 85.1 H Lymph % (Auto) 8.6 L [place] % (Auto) 5.3 Eos % (Auto) 0.0 Baso % (Auto) 0.2 Lymph # (Auto) 1.3 [place] # (Auto) 0.8 Eos # (Auto) 0.0 Baso # (Auto) 0.0 Abs Immat Gran (auto) 0.12 H Absolute Neuts (auto) 12.6 H Absolute Nucleated RBC 0.000 Nucleated RBC % (auto) 0.0 PT INR Anion Gap Estim Creat Clear Calc Estimated GFR POC Glucose 437 H* Random Glucose Estimat Average Glucose Hemoglobin A1c % Lactic Acid 1.7 Calcium Magnesium Total Bilirubin AST ALT Alkaline Phosphatase B-Natriuretic Peptide Total Protein Albumin Urine Color Urine Appearance Urine pH Ur Specific [place] Urine Protein Urine Glucose (UA) Urine Ketones Urine Blood Urine Nitrite Ur Leukocyte Esterase Urine RBC Urine WBC Ur Squamous Epith Cells Urine Bacteria Hyaline Casts Granular Casts Acetone, Qual 04/22/22 04/23/22 04/23/22 22:19 00:36 02:31 MCV MCH MCHC RDW Plt Count MPV Immature Gran % (Auto) Neut % (Auto) Lymph % (Auto) [place] % (Auto) Eos % (Auto) Baso % (Auto) Lymph # (Auto) [place] # (Auto) Eos # (Auto) Baso # (Auto) Abs Immat Gran (auto) Absolute Neuts (auto) Absolute Nucleated RBC Nucleated RBC % (auto) PT 16.3 H INR 1.4 H Anion Gap Estim Creat Clear Calc Estimated GFR POC Glucose 353 H* Random Glucose Estimat Average Glucose Hemoglobin A1c % Lactic Acid Calcium Magnesium Total Bilirubin AST ALT Alkaline Phosphatase B-Natriuretic Peptide Total Protein Albumin Urine Color Yellow Urine Appearance Clear Urine pH 5.5 Ur Specific [place] >= 1.030 H Urine Protein 300 (3+) H Urine Glucose (UA) >=1000 H Urine Ketones 80 Urine Blood Trace H Urine Nitrite Negative Ur Leukocyte Esterase Negative Urine RBC 0-2 Urine WBC 6-10 H Ur Squamous Epith Cells 3-5 Urine Bacteria Trace Hyaline Casts 6-10 Granular Casts Present Acetone, Qual 04/23/22 06:19 MCV 83.3 MCH 27.5 MCHC 33.0 RDW 13.9 Plt Count 168 MPV 10.5 Immature Gran % (Auto) 0.8 H Neut % (Auto) 84.7 H Lymph % (Auto) 9.5 L [place] % (Auto) 4.8 Eos % (Auto) 0.0 Baso % (Auto) 0.2 Lymph # (Auto) 1.3 [place] # (Auto) 0.6 Eos # (Auto) 0.0 Baso # (Auto) 0.0 Abs Immat Gran (auto) 0.11 H Absolute Neuts (auto) 11.3 H Absolute Nucleated RBC 0.000 Nucleated RBC % (auto) 0.0 PT INR Anion Gap Estim Creat Clear Calc Estimated GFR POC Glucose Random Glucose Estimat Average Glucose Hemoglobin A1c % Lactic Acid Calcium Magnesium Total Bilirubin AST ALT Alkaline Phosphatase B-Natriuretic Peptide Total Protein Albumin Urine Color Urine Appearance Urine pH Ur Specific [place] Urine Protein Urine Glucose (UA) Urine Ketones Urine Blood Urine Nitrite Ur Leukocyte Esterase Urine RBC Urine WBC Ur Squamous Epith Cells Urine Bacteria Hyaline Casts Granular Casts Acetone, Qual Imaging Radiologist's Impressions: Impressions Chest X-Ray 04/22/22 17:30 IMPRESSION: Unremarkable examination. Lumbar Spine X-Ray 04/22/22 17:30 IMPRESSION: No evidence of a traumatic osseous injury. Mild degenerative changes as described above. Sacrum and Coccyx X-Ray 04/22/22 17:30 IMPRESSION: No evidence of a traumatic osseous injury. Mild degenerative changes as described above. Venous Duplex 04/22/22 19:28 IMPRESSION: No DVT demonstrated in the left lower extremity. Assessment and Plan (1) Hyperglycemia: Status: Acute (2) Hyperglycemia due to type 2 diabetes mellitus: Status: Acute (3) Cellulitis of left leg: Status: Acute (4) Sepsis: Status: Acute Plan 31-year-old male with past medical history of diabetes noncompliant with metformin presents to the hospital with complaints of upper glycemia as well as cellulitis of the like # hyperglycemia - secondary to type 2 diabetes and noncompliance - has a hemoglobin A1c of 11.7 - at this time will place patient on low-dose sliding scale insulin - patient will likely require insulin on discharge given his high hemoglobin A1c - diabetic diet, will consult diabetic Education - follow POC t.i.d. a.c. # sepsis - leukocytosis, tachycardic, tachypneic - lactic acid normal, no hypotension - source likely cellulitis - will treat with IV antibiotics - follow cultures # left lower extremity cellulitis - with evidence of systemic infection - will treat with IV antibiotics - venous duplex negative for DVT - follow cultures # hypertension - continue hydrochlorothiazide # mood disorder - continue aripiprazole DVT prophylaxis: Lovenox given patient's hyperglycemia, as well as sepsis and need for IV antibiotics patient will require minimum 2 night inpatient hospital stay for further management and Time Spent With Patient Time: Total time managing care of this patient today ____ minutes. Quality Stroke Does the patient have a stroke diagnosis?: No VTE Prior VTE?: No VTE Risk Level:: Medical - moderate - high VTE Device Contraindication: Treatment Not Indicated VTE Drug Contraindication: N/A - Med Ordered
--- NOTE | 2022-04-23 07:44 | PHA.MEDREC ---
Pharmacy Consult ? Medication Reconciliation Pharmacy has completed the medication reconciliation. Patient used to be on abilify 10mg, metformin 500mg bid, and hctz 25mg, but has not taken them for a few months Pedro Luis
[2022-04-23 07:46] LABS: Anion Gap 12 (12-20); Blood Urea Nitrogen 7 mg/dL (9-16); Carbon Dioxide 25 mmol/L (22-29); Chloride 96 mmol/L (96-108); Estimated Glomerular Filt Rate > 60; Glucose Random 287 mg/dL (60-115); Potassium 4.2 mmol/L (3.3-5.1); Sodium 129 mmol/L (135-145)
[2022-04-23 07:49] VITALS: BP 126/59; PULSE 84; RESP 12; O2SAT 97
[2022-04-23 07:56] LABS: Glucose, Whole Blood 314 mg/dL (60-115)
[2022-04-23] MEDS: Insulin Lispro 100 UNIT/ML 3 ML VIAL SUBCUT ×5 (08:17→22:19)
--- NOTE | 2022-04-23 08:18 | P.PNIM_ITS ---
Subjective Subjective Date of Service: 04/23/22 Interval History: f/u on sepsis/cellulitis, uncontrolled diabetes with hyperglycemia interval history:pain in the leg, Review of Systems no fever no ches apin Physical Exam Vital Signs: Vital Signs: Last Vital Signs Temp 98.3 F 04/23/22 06:12 Pulse 84 04/23/22 07:49 Resp 12 04/23/22 07:49 BP 126/59 L 04/23/22 07:49 Pulse Ox 97 04/23/22 07:49 O2 Del Method 04/23/22 07:49 O2 Flow Rate 4 04/23/22 06:12 BMI result Body Mass Index 72.1 Const: Other: General: AO X 3, no acute distress Resp: CTA bilateral CVS: S1,S2,RRR GI: +BS, NT, no distention Skin: No rash Neuro: motor grossly intact Psych: appropriate affect Objective Data Active Medications Acetaminophen (Acetaminophen 325 Mg Tablet) 650 mg PO Q6H PRN PRN Reason: Pain, Mild (Pain Scale 1-3) Dextrose (Dextrose 50 % 25 Gm/50 Ml Syringe) 25 gm IVPUSH Q15M PRN; Protocol PRN Reason: per Hypoglycemia Standing Ord. Docusate Sodium (Docusate Sodium 100 Mg Capsule) 100 mg PO DAILY PRN PRN Reason: Constipation Enoxaparin Sodium (Enoxaparin Sodium 40 Mg/0.4 Ml Syringe) 40 mg SUBCUT Q12H [facility] Last Admin: 04/22/22 23:55 Dose: 40 mg Documented By: RISHABH Glucose (Glucose Gel 15 Gm Gel..Gram.) 15 gm PO Q15M PRN; Protocol PRN Reason: per Hypoglycemia Standing Ord. Cefazolin Sodium/Dextrose (Ancef) 2 gm in 50 mls @ 100 mls/hr IV Q8H [facility] Last Admin: 04/23/22 08:17 Dose: 100 mls/hr Documented By: BEVERLY Lactated Ringer's (Lr) 1,000 mls @ 100 mls/hr IVCONT .Q10H [facility] Last Admin: 04/23/22 00:55 Dose: 100 mls/hr Documented By: RISHABH Insulin Human Lispro (Insulin Lispro 100 Unit/Ml 3 Ml Vial) 0 unit SUBCUT QIDACHS [facility]; Protocol Last Admin: 04/23/22 08:17 Dose: 8 unit Documented By: BEVERLY Ondansetron HCl (Ondansetron Hcl 4 Mg/2 Ml Vial) 4 mg IVPUSH Q8H PRN PRN Reason: Nausea and Vomiting Oxycodone HCl (Oxycodone Hcl Immed Release 5 Mg Tablet) 5 mg PO Q6H PRN PRN Reason: Pain, Severe (Pain Scale 7-10) Pharmacy Consult (Consult Rx Vancomycin Dosing) 1 each MISCELLANE DAILY PRN PRN Reason: Consult order Pharmacy Consult (Consult Rx Perform Med Rec) 1 each MISCELLANE ONCE PRN PRN Reason: Consult order Sodium Chloride (0.9 % Sodium Chloride Flush 3 Ml Syringe) 3 ml IVFLUSH QSHIFT [facility] Last Admin: 04/23/22 08:18 Dose: Not Given Documented By: BEVERLY Non-Admin Reason: IV Running Labs CBC & Chem 7: 04/23/22 06:19 04/23/22 06:20 Labs: Laboratory Results - last 24 hr 04/22/22 04/22/22 04/22/22 17:46 17:46 17:46 MCV MCH MCHC RDW Plt Count MPV Immature Gran % (Auto) Neut % (Auto) Lymph % (Auto) [place] % (Auto) Eos % (Auto) Baso % (Auto) Lymph # (Auto) [place] # (Auto) Eos # (Auto) Baso # (Auto) Abs Immat Gran (auto) Absolute Neuts (auto) Absolute Nucleated RBC Nucleated RBC % (auto) PT INR Anion Gap 15 Estim Creat Clear Calc 167.2 Estimated GFR > 60 POC Glucose Random Glucose 483 H* Estimat Average Glucose 289 Hemoglobin A1c % 11.7 Lactic Acid Calcium 8.8 D Magnesium 1.6 Total Bilirubin 1.3 H AST 36 ALT 33 Alkaline Phosphatase 82 B-Natriuretic Peptide 47 Total Protein 7.1 Albumin 3.6 Urine Color Urine Appearance Urine pH Ur Specific [place] Urine Protein Urine Glucose (UA) Urine Ketones Urine Blood Urine Nitrite Ur Leukocyte Esterase Urine RBC Urine WBC Ur Squamous Epith Cells Urine Bacteria Hyaline Casts Granular Casts Acetone, Qual Negative 04/22/22 04/22/22 04/22/22 21:17 21:44 22:19 MCV 83.4 MCH 27.5 MCHC 32.9 RDW 13.9 Plt Count 183 D MPV 10.1 Immature Gran % (Auto) 0.8 H Neut % (Auto) 85.1 H Lymph % (Auto) 8.6 L [place] % (Auto) 5.3 Eos % (Auto) 0.0 Baso % (Auto) 0.2 Lymph # (Auto) 1.3 [place] # (Auto) 0.8 Eos # (Auto) 0.0 Baso # (Auto) 0.0 Abs Immat Gran (auto) 0.12 H Absolute Neuts (auto) 12.6 H Absolute Nucleated RBC 0.000 Nucleated RBC % (auto) 0.0 PT INR Anion Gap Estim Creat Clear Calc Estimated GFR POC Glucose 437 H* Random Glucose Estimat Average Glucose Hemoglobin A1c % Lactic Acid 1.7 Calcium Magnesium Total Bilirubin AST ALT Alkaline Phosphatase B-Natriuretic Peptide Total Protein Albumin Urine Color Urine Appearance Urine pH Ur Specific [place] Urine Protein Urine Glucose (UA) Urine Ketones Urine Blood Urine Nitrite Ur Leukocyte Esterase Urine RBC Urine WBC Ur Squamous Epith Cells Urine Bacteria Hyaline Casts Granular Casts Acetone, Qual 04/22/22 04/23/22 04/23/22 22:19 00:36 02:31 MCV MCH MCHC RDW Plt Count MPV Immature Gran % (Auto) Neut % (Auto) Lymph % (Auto) [place] % (Auto) Eos % (Auto) Baso % (Auto) Lymph # (Auto) [place] # (Auto) Eos # (Auto) Baso # (Auto) Abs Immat Gran (auto) Absolute Neuts (auto) Absolute Nucleated RBC Nucleated RBC % (auto) PT 16.3 H INR 1.4 H Anion Gap Estim Creat Clear Calc Estimated GFR POC Glucose 353 H* Random Glucose Estimat Average Glucose Hemoglobin A1c % Lactic Acid Calcium Magnesium Total Bilirubin AST ALT Alkaline Phosphatase B-Natriuretic Peptide Total Protein Albumin Urine Color Yellow Urine Appearance Clear Urine pH 5.5 Ur Specific [place] >= 1.030 H Urine Protein 300 (3+) H Urine Glucose (UA) >=1000 H Urine Ketones 80 Urine Blood Trace H Urine Nitrite Negative Ur Leukocyte Esterase Negative Urine RBC 0-2 Urine WBC 6-10 H Ur Squamous Epith Cells 3-5 Urine Bacteria Trace Hyaline Casts 6-10 Granular Casts Present Acetone, Qual 04/23/22 04/23/22 04/23/22 06:19 06:20 07:47 MCV 83.3 MCH 27.5 MCHC 33.0 RDW 13.9 Plt Count 168 MPV 10.5 Immature Gran % (Auto) 0.8 H Neut % (Auto) 84.7 H Lymph % (Auto) 9.5 L [place] % (Auto) 4.8 Eos % (Auto) 0.0 Baso % (Auto) 0.2 Lymph # (Auto) 1.3 [place] # (Auto) 0.6 Eos # (Auto) 0.0 Baso # (Auto) 0.0 Abs Immat Gran (auto) 0.11 H Absolute Neuts (auto) 11.3 H Absolute Nucleated RBC 0.000 Nucleated RBC % (auto) 0.0 PT INR Anion Gap 12 Estim Creat Clear Calc 218.0 Estimated GFR > 60 POC Glucose 314 H Random Glucose 287 H Estimat Average Glucose Hemoglobin A1c % Lactic Acid Calcium 8.0 L D Magnesium Total Bilirubin AST ALT Alkaline Phosphatase B-Natriuretic Peptide Total Protein Albumin Urine Color Urine Appearance Urine pH Ur Specific [place] Urine Protein Urine Glucose (UA) Urine Ketones Urine Blood Urine Nitrite Ur Leukocyte Esterase Urine RBC Urine WBC Ur Squamous Epith Cells Urine Bacteria Hyaline Casts Granular Casts Acetone, Qual Assessment and Plan (1) Sepsis: Status: Acute (2) Hyperglycemia: Status: Acute (3) Hyperglycemia due to type 2 diabetes mellitus: Status: Acute Plan 31-year-old male with past medical history of diabetes noncompliant with metformin presents to the hospital with complaints of upper glycemia as well as cellulitis of the like # Diabetes with Hyperglycemia d/t non-compliance, A1C 11.7 -add metformin 500 bid -Lantus 15 daily -SSI -diet education/diabetes education -Would recommend insulin at discharge # sepsis d/t cellulitis of left lower extremity --continue cefazoliin, follow cultures. Sepsis resolved. - leukocytosis, tachycardic, tachypneic #Super morbid obesity--weight loss advise with exercise, diet watch # hypertension - continue hydrochlorothiazide # mood disorder/Schizophrenia - continue aripiprazole DVT prophylaxis: Lovenox Need for inpaient given patient's hyperglycemia, as well as sepsis and need for IV antibiotics patient will require minimum 2 night inpatient hospital stay for further management and Time Spent With Patient Time: Total time managing care of this patient today ____ minutes. Quality Stroke Does the patient have a stroke diagnosis?: No VTE Prior VTE?: No VTE Risk Level:: Medical - moderate - high VTE Device Contraindication: Treatment Not Indicated VTE Drug Contraindication: N/A - Med Ordered
[2022-04-23 10:10] LABS: COVID-19 Test Negative (Negative); IDNOW Serial# BCCEAD1C
[2022-04-23 12:22] LABS: Glucose, Whole Blood 329 mg/dL (60-115)
[2022-04-23] MEDS: Enoxaparin Sodium 40 MG/0.4 ML SYRINGE SUBCUT ×2 (12:32→21:29)
[2022-04-23] MEDS: oxyCODONE HCl Immed Release 5 MG TABLET PO (12:36)
[2022-04-23 14:02] VITALS: BP 99/41; PULSE 112; RESP 14; O2SAT 96
--- NOTE | 2022-04-23 14:08 | MHC.CM.PN ---
Meet with patient for CM assessment. Alert & oriented. Patient is from home, actively employed. He reports having difficulty keeping appointments and picking up medications after work due to being tired. He see a [facility] RN weekly, no other services in the home. From review of EMR pt may be d/c'ing with new insulin. Call placed to [facility] for increase in supports in the home, awaiting follow-up from Anahi @ [facility]. D/C plan- home w/ increase [facility] services. Family to transport @ d/c. IMM delivered.
[2022-04-23 14:09] LABS: Glucose, Whole Blood 317 mg/dL (60-115)
[2022-04-23 17:26] LABS: Glucose, Whole Blood 397 mg/dL (60-115)
--- NOTE | 2022-04-23 19:32 | PC.NURSE ---
Pt resting in bed, no need expressed at this time.
--- NOTE | 2022-04-23 19:36 | PC.NURSE ---
This RN attempted to call report, was told RN would call back.
[2022-04-23 20:00] VITALS: BP 112/62; PULSE 109; RESP 20; TEMP 38.2; O2SAT 96
[2022-04-23 21:10] LABS: Glucose, Whole Blood 407 mg/dL (60-115)
[2022-04-23 21:57] VITALS: BMI 70.4
[2022-04-23] MEDS: Acetaminophen 325 MG TABLET 650 MG PO (22:25)
[2022-04-23 23:44] VITALS: BP 129/82; PULSE 103; RESP 18; TEMP 36; O2SAT 95
[2022-04-24] MEDS: 0.9 % Sodium Chloride Flush 3 ML SYRINGE IVFLUSH (00:51)
[2022-04-24] MEDS: Lactated Ringers 1,000 ML 100 ML IVCONT ×3 (01:58→21:46)
[2022-04-24 03:48] VITALS: BP 138/80; PULSE 100; RESP 17; TEMP 37; O2SAT 96
--- NOTE | 2022-04-24 06:11 | PC.NURSE ---
Addendum entered by Abimbola Null RN 04/24/22 06:15: TEMP CAME DOWN TO 98.6. LEFT LOWER LEG IS RED AND EDEMATOUS. REDNESS IS MARKED OFF. Original Note: PT TO ROOM 371 AT APPROXIMATELY 2030 IN NO ACUTE DISTRESS, A&O X3. TEMP 100.7. RECEIVED TYLENOL ORDERED PRN. CEFAZOLIN GIVEN SCHEDULED. LR AT 100 ML/HR. PT VOIDING IN THE URINOL. SLEPT WELL DURING THE NIGHT. AWAKE NOW AND SNACK GIVEN OF YAYA SANCHEZ.
[2022-04-24 07:30] LABS: Glucose, Whole Blood 359 mg/dL (60-115)
[2022-04-24] MEDS: ceFAZolin Sodium/Dextrose,Iso 2 GM/50 ML PIGGYBACK IV ×3 (07:45→23:07)
[2022-04-24] MEDS: Insulin Lispro 100 UNIT/ML 3 ML VIAL SUBCUT ×4 (07:45→20:22)
[2022-04-24 07:46] VITALS: BP 126/68; PULSE 96; RESP 18; TEMP 37; O2SAT 93
--- NOTE | 2022-04-24 10:06 | HO.PM.IMPN ---
Subjective Subjective Date of Service: 04/24/22 Interval History: f/u on sepsis/cellulitis, uncontrolled diabetes with hyperglycemia interval history:pain in the leg unchnaged Review of Systems no fever no ches apin Physical Exam Vital Signs: Vital Signs: Last Vital Signs Temp 98.6 F 04/24/22 07:46 Pulse 96 04/24/22 07:46 Resp 18 04/24/22 07:46 BP 126/68 04/24/22 07:46 Pulse Ox 93 04/24/22 07:46 O2 Del Method 04/24/22 07:46 O2 Flow Rate 2 04/24/22 03:48 BMI result Body Mass Index 70.4 Const: Other: General: AO X 3, no acute distress Resp: CTA bilateral CVS: S1,S2,RRR GI: +BS, NT, no distention Skin: No rash, redness of left leg with superimpse chronic venous stasis changes Neuro: motor grossly intact Psych: appropriate affect Objective Data Active Medications Acetaminophen (Acetaminophen 325 Mg Tablet) 650 mg PO Q6H PRN PRN Reason: Pain, Mild (Pain Scale 1-3) Last Admin: 04/23/22 22:25 Dose: 650 mg Documented By: KETTY Dextrose (Dextrose 50 % 25 Gm/50 Ml Syringe) 25 gm IVPUSH Q15M PRN; Protocol PRN Reason: per Hypoglycemia Standing Ord. Docusate Sodium (Docusate Sodium 100 Mg Capsule) 100 mg PO DAILY PRN PRN Reason: Constipation Enoxaparin Sodium (Enoxaparin Sodium 40 Mg/0.4 Ml Syringe) 40 mg SUBCUT Q12H [facility] Last Admin: 04/23/22 21:29 Dose: 40 mg Documented By: HEMANT Glucose (Glucose Gel 15 Gm Gel..Gram.) 15 gm PO Q15M PRN; Protocol PRN Reason: per Hypoglycemia Standing Ord. Cefazolin Sodium/Dextrose (Ancef) 2 gm in 50 mls @ 100 mls/hr IV Q8H [facility] Last Infusion: 04/24/22 08:25 Dose: 0 mls/hr Documented By: VINAYAK Lactated Ringer's (Lr) 1,000 mls @ 100 mls/hr IVCONT .Q10H [facility] Last Admin: 04/24/22 01:58 Dose: 100 mls/hr Documented By: HEMANT Insulin Human Lispro (Insulin Lispro 100 Unit/Ml 3 Ml Vial) 0 unit SUBCUT QIDACHS [facility]; Protocol Last Admin: 04/24/22 07:45 Dose: 10 unit Documented By: VINAYAK Ondansetron HCl (Ondansetron Hcl 4 Mg/2 Ml Vial) 4 mg IVPUSH Q8H PRN PRN Reason: Nausea and Vomiting Oxycodone HCl (Oxycodone Hcl Immed Release 5 Mg Tablet) 5 mg PO Q6H PRN PRN Reason: Pain, Severe (Pain Scale 7-10) Last Admin: 04/23/22 12:36 Dose: 5 mg Documented By: BEVERLY Pharmacy Consult (Consult Rx Perform Med Rec) 1 each MISCELLANE ONCE PRN PRN Reason: Consult order Sodium Chloride (0.9 % Sodium Chloride Flush 3 Ml Syringe) 3 ml IVFLUSH [facility] Last Admin: 04/24/22 07:46 Dose: Not Given Documented By: VINAYAK Non-Admin Reason: IV Running Labs CBC & Chem 7: 04/23/22 06:19 04/23/22 06:20 Labs: Laboratory Results - last 24 hr 04/23/22 04/23/22 04/23/22 09:48 12:17 14:01 POC Glucose 329 H 317 H COVID-19 (SUSANNE) Negative COVID-19 Clin Com See Note 04/23/22 04/23/22 04/24/22 17:22 21:07 07:24 POC Glucose 397 H* 407 H* 359 H* COVID-19 (SUSANNE) COVID-19 Clin Com Microbiology Microbiology Results: Microbiology 04/22/22 22:19 Blood Culture - Preliminary Blood - Venous No growth after 24 hours. 04/22/22 22:19 Blood Culture - Preliminary Blood - Venous No growth after 24 hours. Assessment and Plan (1) Sepsis: Status: Acute (2) Hyperglycemia: Status: Acute (3) Hyperglycemia due to type 2 diabetes mellitus: Status: Acute Plan 31-year-old male with past medical history of diabetes noncompliant with metformin presents to the hospital with complaints of upper glycemia as well as cellulitis of the like # Diabetes with Hyperglycemia d/t non-compliance, A1C 11.7 -add metformin 500 bid -Lantus 15 daily -SSI -diet education/diabetes education and insulin teaching -Would recommend insulin at discharge # sepsis d/t cellulitis of left lower extremity --continue cefazoliin, follow cultures. Sepsis resolved. - leukocytosis, tachycardic, tachypneic - #Super morbid obesity--weight loss advise with exercise, diet watch # hypertension - continue hydrochlorothiazide # mood disorder/Schizophrenia - continue aripiprazole DVT prophylaxis: Lovenox Need for inpaient given patient's hyperglycemia, as well as sepsis and need for IV antibiotics patient will require minimum 2 night inpatient hospital stay for further management Time Spent With Patient Time: Total time managing care of this patient today ____ minutes. Quality Stroke Does the patient have a stroke diagnosis?: No VTE Prior VTE?: No VTE Risk Level:: Medical - moderate - high VTE Device Contraindication: Treatment Not Indicated VTE Drug Contraindication: N/A - Med Ordered
[2022-04-24] MEDS: Insulin Glargine,Hum.rec.anlog 100 UNIT/ML 10 ML VIAL 15 UNIT SUBCUT (10:40)
[2022-04-24] MEDS: metFORMIN HCl 500 MG TABLET PO ×2 (10:40→16:16)
[2022-04-24] MEDS: Enoxaparin Sodium 40 MG/0.4 ML SYRINGE SUBCUT ×2 (10:41→23:08)
[2022-04-24 11:14] LABS: Glucose, Whole Blood 382 mg/dL (60-115)
[2022-04-24 11:16] VITALS: BP 130/72; PULSE 101; RESP 18; TEMP 36.3; O2SAT 92
--- NOTE | 2022-04-24 11:48 | MHC.CM.PN ---
PATIENT REQUIRES ONE MORE DAY OF IV ABX. PLAN FOR DC HOME TOMORROW
[2022-04-24 15:35] VITALS: BP 134/72; PULSE 108; RESP 20; TEMP 37.1; O2SAT 93
[2022-04-24 15:50] LABS: Glucose, Whole Blood 333 mg/dL (60-115)
[2022-04-24 19:13] VITALS: BP 139/77; PULSE 107; RESP 20; TEMP 37.1; O2SAT 93
[2022-04-24 19:37] LABS: Glucose, Whole Blood 298 mg/dL (60-115)
[2022-04-24] MEDS: oxyCODONE HCl Immed Release 5 MG TABLET PO (20:23)
[2022-04-24 23:54] VITALS: BP 129/73; PULSE 103; RESP 16; TEMP 36.9; O2SAT 94
[2022-04-25 03:16] VITALS: BP 140/67; PULSE 108; RESP 18; TEMP 35.9; O2SAT 97
[2022-04-25] MEDS: oxyCODONE HCl Immed Release 5 MG TABLET PO (03:49)
[2022-04-25] MEDS: ceFAZolin Sodium/Dextrose,Iso 2 GM/50 ML PIGGYBACK IV ×2 (06:01→14:40)
[2022-04-25 07:17] VITALS: BP 142/91; PULSE 100; RESP 19; TEMP 37; O2SAT 97
[2022-04-25 07:40] LABS: Glucose, Whole Blood 321 mg/dL (60-115)
[2022-04-25] MEDS: Insulin Glargine,Hum.rec.anlog 100 UNIT/ML 10 ML VIAL 15 UNIT SUBCUT (07:53)
[2022-04-25] MEDS: metFORMIN HCl 500 MG TABLET PO (07:53)
[2022-04-25] MEDS: Acetaminophen 325 MG TABLET 650 MG PO (07:53)
[2022-04-25] MEDS: 0.9 % Sodium Chloride Flush 3 ML SYRINGE IVFLUSH ×3 (07:54→21:58)
[2022-04-25] MEDS: Insulin Lispro 100 UNIT/ML 3 ML VIAL SUBCUT ×4 (07:54→20:11)
--- NOTE | 2022-04-25 10:32 | P.PNIM_ITS ---
Subjective Subjective Date of Service: 04/25/22 Interval History: f/u on sepsis/cellulitis, uncontrolled diabetes with hyperglycemia interval history:pain in the leg unchnaged, blood sugars still high Review of Systems no fever no ches apin Physical Exam Vital Signs: Vital Signs: Last Vital Signs Temp 98.6 F 04/25/22 07:17 Pulse 100 04/25/22 07:17 Resp 19 04/25/22 07:17 BP 142/91 H 04/25/22 07:17 Pulse Ox 97 04/25/22 07:17 O2 Del Method 04/25/22 07:17 O2 Flow Rate 2 04/24/22 03:48 BMI result Body Mass Index 70.4 Const: Other: General: AO X 3, no acute distress Resp: CTA bilateral CVS: S1,S2,RRR GI: +BS, NT, no distention Skin: , redness of left leg with superimpse chronic venous stasis changes Neuro: motor grossly intact Psych: appropriate affect Objective Data Active Medications Acetaminophen (Acetaminophen 325 Mg Tablet) 650 mg PO Q6H PRN PRN Reason: Pain, Mild (Pain Scale 1-3) Last Admin: 04/25/22 07:53 Dose: 650 mg Documented By: RICHARD Dextrose (Dextrose 50 % 25 Gm/50 Ml Syringe) 25 gm IVPUSH Q15M PRN; Protocol PRN Reason: per Hypoglycemia Standing Ord. Docusate Sodium (Docusate Sodium 100 Mg Capsule) 100 mg PO DAILY PRN PRN Reason: Constipation Enoxaparin Sodium (Enoxaparin Sodium 40 Mg/0.4 Ml Syringe) 40 mg SUBCUT Q12H [facility] Last Admin: 04/24/22 23:08 Dose: 40 mg Documented By: KETTY Glucose (Glucose Gel 15 Gm Gel..Gram.) 15 gm PO Q15M PRN; Protocol PRN Reason: per Hypoglycemia Standing Ord. Cefazolin Sodium/Dextrose (Ancef) 2 gm in 50 mls @ 100 mls/hr IV Q8H [facility] Last Infusion: 04/25/22 06:38 Dose: 100 mls/hr Documented By: NGA Insulin Glargine (Insulin Glargine,Hum.Rec.Anlog 100 Unit/Ml 10 Ml Vial) 15 unit SUBCUT DAILY [facility] Last Admin: 04/25/22 07:53 Dose: 15 unit Documented By: RICHARD Insulin Human Lispro (Insulin Lispro 100 Unit/Ml 3 Ml Vial) 0 unit SUBCUT QIDACHS [facility]; Protocol Last Admin: 04/25/22 07:54 Dose: 8 unit Documented By: RICHARD Metformin HCl (Metformin Hcl 500 Mg Tablet) 500 mg PO BIDWM [facility] Last Admin: 04/25/22 07:53 Dose: 500 mg Documented By: RICHARD Ondansetron HCl (Ondansetron Hcl 4 Mg/2 Ml Vial) 4 mg IVPUSH Q8H PRN PRN Reason: Nausea and Vomiting Oxycodone HCl (Oxycodone Hcl Immed Release 5 Mg Tablet) 5 mg PO Q6H PRN PRN Reason: Pain, Severe (Pain Scale 7-10) Last Admin: 04/25/22 03:49 Dose: 5 mg Documented By: NGA Pharmacy Consult (Consult Rx Perform Med Rec) 1 each MISCELLANE ONCE PRN PRN Reason: Consult order Sodium Chloride (0.9 % Sodium Chloride Flush 3 Ml Syringe) 3 ml IVFLUSH [facility] Last Admin: 04/25/22 07:54 Dose: 3 ml Documented By: RICHARD Labs CBC & Chem 7: 04/23/22 06:19 04/23/22 06:20 Labs: Laboratory Results - last 24 hr 04/24/22 04/24/22 04/24/22 11:10 15:38 19:16 POC Glucose 382 H* 333 H 298 H 04/25/22 07:13 POC Glucose 321 H Microbiology Microbiology Results: Microbiology 04/22/22 22:19 Blood Culture - Preliminary Blood - Venous No growth after 48 hours. 04/22/22 22:19 Blood Culture - Preliminary Blood - Venous No growth after 48 hours. 04/23/22 Unknown Urine Culture - Final Urine clean catch - Urine agustin top No growth. Assessment and Plan (1) Sepsis: Status: Acute (2) Hyperglycemia: Status: Acute (3) Hyperglycemia due to type 2 diabetes mellitus: Status: Acute Plan 31-year-old male with past medical history of diabetes noncompliant with metformin presents to the hospital with complaints of upper glycemia as well as cellulitis of the like # Diabetes with Hyperglycemia d/t non-compliance, A1C 11.7 -added metformin 500 bid on 04/24, increase to 1000 bid -Lantus 15 daily started on 04/24, increase to 25 -SSI + pre insulin as well -diet education/diabetes education and insulin teaching -Would recommend insulin at discharge # sepsis d/t cellulitis of left lower extremity --continue cefazoliin, follow cultures. Sepsis resolved. - leukocytosis, tachycardic, tachypneic.. ID consult - #Super morbid obesity--weight loss advise with exercise, diet watch # hypertension - continue hydrochlorothiazide # mood disorder/Schizophrenia - continue aripiprazole DVT prophylaxis: Lovenox Need for inpaient extensive cellulitis of the leg, needing IV Abx and uncontrolled new diabetes Time Spent With Patient Time: Total time managing care of this patient today ____ minutes. Quality Stroke Does the patient have a stroke diagnosis?: No VTE Prior VTE?: No VTE Risk Level:: Medical - moderate - high VTE Device Contraindication: Treatment Not Indicated VTE Drug Contraindication: N/A - Med Ordered
--- NOTE | 2022-04-25 11:21 | MHC.CM.PN ---
Per MD rounds no dc today. Patient requires further treatment for cellulitis. Patient will continue on IV ABX. DP Home self-care. Patient will arrange for a ride home at discharge.
[2022-04-25 11:41] VITALS: BP 136/88; PULSE 100; RESP 19; TEMP 36.7; O2SAT 92
[2022-04-25 13:17] LABS: Glucose, Whole Blood 361 mg/dL (60-115)
[2022-04-25] MEDS: Enoxaparin Sodium 40 MG/0.4 ML SYRINGE SUBCUT (13:17)
[2022-04-25] MEDS: Insulin Glargine,Hum.rec.anlog 100 UNIT/ML 10 ML VIAL 10 UNIT SUBCUT (13:17)
[2022-04-25 14:58] VITALS: BP 136/76; PULSE 94; RESP 20; TEMP 36.4; O2SAT 97
--- NOTE | 2022-04-25 15:13 | W.PM.IDCN ---
History of Present Illness Data of Consult Service Date: 04/25/22 Requesting physician: Elliot Rubio Primary Care Provider: Nader Cortes III, MD HPI Reason for consult: left leg cellulitis He presents with left leg blister two days ago and redness He has swelling chronically LLE He has very high BMI. Review of Systems Review of Systems: Yes all other systems are reviewed and are negative PMFSH Past Medical History Medical History Anxiety Depression HTN (hypertension) Hyperglycemia due to type 2 diabetes mellitus Obesity Family History Family History Mother Diabetes Father Dialysis patient Hypertension Diabetes Sister Obesity Sister Obesity Sister No problems noted. Brother Diabetes Brother No problems noted. Brother No problems noted. Family history: reviewed and not pertinent Surgical History Surgical History History of placement of ear tubes Hx of tonsillectomy Social History Social History Household Members: Other Household Members Other:: ROOMATE Housing: Apartment Do you presently have visiting nurse or other home services: No Alcohol intake: current Alcohol intake frequency: a few times a month Alcohol type: hard liquor Patient Tobacco Use Status: Never used Tobacco Tobacco use type: Cigarette Cigarettes Per Day: 2 e-Cigarette/Vaping Use: Former Use Second Hand Smoke Exposure: No Substance Use Type: Marijuana service: No Current occupational status: employed Meds Allergies Allergy/AdvReac Type Severity Reaction Status Date / Time Sulfa (Sulfonamide AdvReac Mild BURNING EAR Verified 07/22/21 15:38 Antibiotics) [SULFA (SULFONAMIDE ANTIBIOTICS)] Apples Allergy Unknown Itching Uncoded 07/22/21 15:38 Active Medications: Current Medications Acetaminophen (Acetaminophen 325 Mg Tablet) 650 mg PO Q6H PRN PRN Reason: Pain, Mild (Pain Scale 1-3) Last Admin: 04/25/22 07:53 Dose: 650 mg Dextrose (Dextrose 50 % 25 Gm/50 Ml Syringe) 25 gm IVPUSH Q15M PRN; Protocol PRN Reason: per Hypoglycemia Standing Ord. Docusate Sodium (Docusate Sodium 100 Mg Capsule) 100 mg PO DAILY PRN PRN Reason: Constipation Enoxaparin Sodium (Enoxaparin Sodium 40 Mg/0.4 Ml Syringe) 40 mg SUBCUT Q12H [facility] Last Admin: 04/25/22 13:17 Dose: 40 mg Glucose (Glucose Gel 15 Gm Gel..Gram.) 15 gm PO Q15M PRN; Protocol PRN Reason: per Hypoglycemia Standing Ord. Cefazolin Sodium/Dextrose (Ancef) 2 gm in 50 mls @ 100 mls/hr IV Q8H [facility] Last Admin: 04/25/22 14:40 Dose: 100 mls/hr Insulin Glargine (Insulin Glargine,Hum.Rec.Anlog 100 Unit/Ml 10 Ml Vial) 25 unit SUBCUT DAILY [facility] Insulin Human Lispro (Insulin Lispro 100 Unit/Ml 3 Ml Vial) 0 unit SUBCUT QIDACHS [facility]; Protocol Last Admin: 04/25/22 13:17 Dose: 10 unit Metformin HCl (Metformin Hcl 1,000 Mg Tablet) 1,000 mg PO BIDWM [facility] Ondansetron HCl (Ondansetron Hcl 4 Mg/2 Ml Vial) 4 mg IVPUSH Q8H PRN PRN Reason: Nausea and Vomiting Oxycodone HCl (Oxycodone Hcl Immed Release 5 Mg Tablet) 5 mg PO Q6H PRN PRN Reason: Pain, Severe (Pain Scale 7-10) Last Admin: 04/25/22 03:49 Dose: 5 mg Pharmacy Consult (Consult Rx Perform Med Rec) 1 each MISCELLANE ONCE PRN PRN Reason: Consult order Sodium Chloride (0.9 % Sodium Chloride Flush 3 Ml Syringe) 3 ml IVFLUSH QSHIFT [facility] Last Admin: 04/25/22 14:40 Dose: 3 ml Home Medications Medication Instructions Recorded Confirmed Last Taken Type No Known Home Meds 04/23/22 04/23/22 Unknown History Physical Exam Vital Signs: Vital Signs: Last Vital Signs Temp 97.6 F 04/25/22 14:58 Pulse 94 04/25/22 14:58 Resp 20 04/25/22 14:58 BP 136/76 04/25/22 14:58 Pulse Ox 97 04/25/22 14:58 O2 Del Method 04/25/22 14:58 O2 Flow Rate 2 04/24/22 03:48 BMI result Body Mass Index 70.4 Const: General: cooperative HEENT: Head: Yes normal to inspection Face and sinus: Yes normal facial exam Mouth: Normal oral and palatal mucosa present Teeth and gingiva: dentition normal Eyes: General: appearance normal, both eyes and all related structures Pupils: Equal, round and reactive pupils present Resp: Effort & Inspection: normal respiratory effort Cardio: Rate: regular rate Rhythm: regular rhythm GI: Palpation (GI): Soft to palpation and nontender : General: Yes no CVA tenderness Back/Spine/Pelvis: Back: no CVA tenderness Skin: General skin exam: no rashes or lesions noted Neuro: General: moves all extremities Cranial nerves: Yes Equal, round and reactive pupils present Extrem: Other: swollen left leg with blisters interdigital fungus General: Yes normal to inspection Psych: Appearance: grossly normal Results Labs CBC & Chem 7: 04/23/22 06:19 04/23/22 06:20 Microbiology Microbiology Results: Microbiology 04/22/22 22:19 Blood - Venous Blood Culture - Preliminary No growth after 48 hours. 04/22/22 22:19 Blood - Venous Blood Culture - Preliminary No growth after 48 hours. 04/23/22 Unknown Urine clean catch - Urine agustin top Urine Culture - Final No growth. Assessment and Plan (1) Sepsis: Status: Acute (2) Cellulitis of left leg: Status: Acute There is no MRSA Likely strep or MSSA but could have gram negative (3) Schizophrenia: Status: Acute (4) Morbid obesity with BMI of 70 and over, adult: Status: Acute Plan Would continue Kefzol If not improving switch to Clindamycin 900 mg IV every eight hours for two to three days or until improved. Lotrimin cream interdigital areas patient cant reach. Go back to Bariatrics elevation/compression Time Spent With Patient Time: Total time managing care of this patient today ____ minutes.
[2022-04-25 15:22] LABS: Glucose, Whole Blood 358 mg/dL (60-115)
[2022-04-25] MEDS: metFORMIN HCl 1,000 MG TABLET 1000 MG PO (16:24)
--- NOTE | 2022-04-25 17:26 | PM.PSYCN ---
History of Present Illness Date of Service: 04/25/2022 Chief Complaint: cellulitis,hyperglycemia Reason for Consult: Depression, medication Requesting physician: Elliot Rubio Discussed with referring provider: Yes Sources of Information: patient interviewed and chart reviewed HPI Narrative: Hilaria is a 31 y.o. male who carries a dx of bipolar disorder. He has a past medical history of HTN, diabetes, however was non-compliant with metformin and presented to the hospital with complaints of hyperglycemia and sepsis d/t cellulitis of LLE. He has co-morbid super morbid obesity. Pt was started on metformin, lantus. Continued on antibiotic. Psych consult placed for complaints of depression. Pt has been non-adherent on abilify 10 mg daily since 01/2022. I spoke with pt this evening. He reports he stopped seeing all his providers and so he ran out of abilify. Says this is because ?Tricia been so down, that?s why I ended up here, I stopped taking all my meds.? Feels ?completely depressed,? says his bedroom is a mess, says he can get ?angry,? verbally aggressive, inattentive, avolition, says he ?doesnt want to do nothing.? 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 Pt denies SI/SIB. Denies hx of suicide attempts. Recently moved into an apartment in mid-december with his best friend, however says his roommate will not pay bills and he has tremendous financial stress, ?that?s all that is in my head all the time.? He is trying to maintain his bills, as prior to this he had a long hx of homelessness, staying with friends, family, sleeping in his car, park benches. Pt admits he intentionally ?stopped taking my pills because i knew i would end up here, it?s an excuse to get away.? Of note, pt does not present with depressed affect and is talkative, friendly, and forthcoming. He identifies having a hx of hypomanic episodes in which he sleeps for an hour at night, ?I could be up laughing, talking,? but says this does not happen often and he is still able to go to work. Mostly identifies as feeling depressed ?always, ever since I was a kid I felt lonely.? Has hx of bullying. Pt reports remote hx of IPLOC for psych admission at age 26 for what sounds like a manic episode, i.e. had sx of A/VH, paranoid ideations, disrobing on the psych unit, caodaism preoccupation, agitated. However, he was also found positive for Spice/ K2 at the time. Pt denies current psychotic sx, however says when he is falling asleep ?I hear shit, I hear people calling my name,? or voices saying ?go get him.? Says ?I talk to the voices when im sleeping.? He denies paranoia. Denies VH. Medical Evaluation Reviewed: Yes [facility] Medical History Anxiety Depression HTN (hypertension) Hyperglycemia due to type 2 diabetes mellitus Obesity Surgical History History of placement of ear tubes Hx of tonsillectomy Diagnostics Vital Signs (24Hr): Vital Signs - 24 hr 04/24/22 19:13 04/24/22 23:54 04/25/22 03:16 Temperature 98.8 F 98.5 F 96.7 F L Pulse Rate 107 H 103 H 108 H Respiratory Rate 20 16 18 Blood Pressure 139/77 129/73 140/67 H Pulse Oximetry 93 94 97 Oxygen Delivery Method Room Air Room Air Room Air 04/25/22 07:17 04/25/22 11:41 04/25/22 14:58 Temperature 98.6 F 98.0 F 97.6 F Pulse Rate 100 100 94 Respiratory Rate 19 19 20 Blood Pressure 142/91 H 136/88 136/76 Pulse Oximetry 97 92 97 Oxygen Delivery Method Room Air Room Air Room Air BMI result Body Mass Index 70.4 Labs Results: 04/23/22 06:19 04/23/22 06:20 Labs: Laboratory Results - last 48 hr 04/23/22 04/23/22 04/24/22 17:22 21:07 07:24 POC Glucose 397 H* 407 H* 359 H* 04/24/22 04/24/22 04/24/22 11:10 15:38 19:16 POC Glucose 382 H* 333 H 298 H 04/25/22 04/25/22 04/25/22 07:13 11:43 15:02 POC Glucose 321 H 361 H* 358 H* Imaging Radiology Impressions: ITS Impressions Chest X-Ray 04/22/22 17:30 IMPRESSION: Unremarkable examination. Lumbar Spine X-Ray 04/22/22 17:30 IMPRESSION: No evidence of a traumatic osseous injury. Mild degenerative changes as described above. Sacrum and Coccyx X-Ray 04/22/22 17:30 IMPRESSION: No evidence of a traumatic osseous injury. Mild degenerative changes as described above. Venous Duplex 04/22/22 19:28 IMPRESSION: No DVT demonstrated in the left lower extremity. Mental Status Exam Mental Status Exam Narrative: A&O. Obese, hospital attire, okay hygiene. Good eye contact, attentive. No Tics or Tremors. No abnormal involuntary movements. Calm, cooperative, engaged. Non-pressured speech, spontaneous with regular rate and rhythm, normal volume and prosody. No prolonged speech latency or dysarthria. Mood is ?depressed,? affect is euthymic. Denies SI/SIB/HI upon inquiry. Denies A/VH or delusional thought content. Thoughts are coherent, organized. No known cognitive or memory impairment. Insight/ Judgment fair and adequate. Medications Medications Current Medications Acetaminophen (Acetaminophen 325 Mg Tablet) 650 mg PO Q6H PRN PRN Reason: Pain, Mild (Pain Scale 1-3) Last Admin: 04/25/22 07:53 Dose: 650 mg Dextrose (Dextrose 50 % 25 Gm/50 Ml Syringe) 25 gm IVPUSH Q15M PRN; Protocol PRN Reason: per Hypoglycemia Standing Ord. Docusate Sodium (Docusate Sodium 100 Mg Capsule) 100 mg PO DAILY PRN PRN Reason: Constipation Enoxaparin Sodium (Enoxaparin Sodium 40 Mg/0.4 Ml Syringe) 40 mg SUBCUT Q12H [facility] Last Admin: 04/25/22 13:17 Dose: 40 mg Glucose (Glucose Gel 15 Gm Gel..Gram.) 15 gm PO Q15M PRN; Protocol PRN Reason: per Hypoglycemia Standing Ord. Cefazolin Sodium/Dextrose (Ancef) 2 gm in 50 mls @ 100 mls/hr IV Q8H [facility] Last Infusion: 04/25/22 16:26 Dose: Infused Insulin Glargine (Insulin Glargine,Hum.Rec.Anlog 100 Unit/Ml 10 Ml Vial) 25 unit SUBCUT DAILY [facility] Insulin Human Lispro (Insulin Lispro 100 Unit/Ml 3 Ml Vial) 0 unit SUBCUT QIDACHS [facility]; Protocol Last Admin: 04/25/22 16:24 Dose: 10 unit Metformin HCl (Metformin Hcl 1,000 Mg Tablet) 1,000 mg PO BIDWM [facility] Last Admin: 04/25/22 16:24 Dose: 1,000 mg Ondansetron HCl (Ondansetron Hcl 4 Mg/2 Ml Vial) 4 mg IVPUSH Q8H PRN PRN Reason: Nausea and Vomiting Oxycodone HCl (Oxycodone Hcl Immed Release 5 Mg Tablet) 5 mg PO Q6H PRN PRN Reason: Pain, Severe (Pain Scale 7-10) Last Admin: 04/25/22 03:49 Dose: 5 mg Pharmacy Consult (Consult Rx Perform Med Rec) 1 each MISCELLANE ONCE PRN PRN Reason: Consult order Sodium Chloride (0.9 % Sodium Chloride Flush 3 Ml Syringe) 3 ml IVFLUSH QSHIFT [facility] Last Admin: 04/25/22 14:40 Dose: 3 ml Allergies Allergies Allergy/AdvReac Type Severity Reaction Status Date / Time Sulfa (Sulfonamide AdvReac Mild BURNING EAR Verified 07/22/21 15:38 Antibiotics) [SULFA (SULFONAMIDE ANTIBIOTICS)] Apples Allergy Unknown Itching Uncoded 07/22/21 15:38 Assessment & Plan Assessment & Plan (1) Bipolar II disorder: Status: Acute Code(s): F31.81 - Bipolar II disorder Plan Plan: Pt reports when he is adherent with abilify he feels more focused, ?I can only think about reality.? However, says he does not want to re-start it because ?I love traveling in my head, its a gift from god.? Says he doesnt want to be on no medication. Prefers to stay in therapy, ?counseling helps me out a lot.? Says his sleep is intact, takes ?a lot? of naps at home. Denies A/VH. Denies SI/SIB. Says he feels safe. There is no imminent safety risk, thus pt does not meet criteria for inpatient psych admission. I will not start medication for depression, as pt is declining medication. I strongly recommended he schedule a follow up with his OP psych provider, Nevin Reyes, however again there is no imminent safety concern and he has a right to refuse medication. I have shared this with Dr. Rubio Thank you for this consultation. If you have any questions or concerns, please do not hesitate to contact psychiatry service. Total time managing care of this patient today ____ minutes. Patient educated on: therapeutic strategies
[2022-04-25 19:13] VITALS: BP 143/78; PULSE 106; RESP 20; TEMP 36.7; O2SAT 94
[2022-04-25 19:31] LABS: Glucose, Whole Blood 357 mg/dL (60-115)
[2022-04-25 21:18] LABS: Glucose, Whole Blood 290 mg/dL (60-115)
[2022-04-26] MEDS: ceFAZolin Sodium/Dextrose,Iso 2 GM/50 ML PIGGYBACK IV ×2 (00:02→06:31)
[2022-04-26] MEDS: Enoxaparin Sodium 40 MG/0.4 ML SYRINGE SUBCUT ×3 (00:02→22:07)
[2022-04-26] MEDS: Acetaminophen 325 MG TABLET 650 MG PO ×2 (02:50→14:52)
[2022-04-26] MEDS: oxyCODONE HCl Immed Release 5 MG TABLET PO (02:51)
[2022-04-26 03:34] VITALS: BP 166/83; PULSE 105; RESP 18; TEMP 36.1; O2SAT 94
[2022-04-26 03:40] VITALS: BP 140/74; PULSE 100; O2SAT 96
[2022-04-26 07:15] VITALS: BP 159/94; PULSE 97; RESP 18; TEMP 36.7; O2SAT 91
[2022-04-26 07:43] LABS: Glucose, Whole Blood 297 mg/dL (60-115)
[2022-04-26] MEDS: Insulin Lispro 100 UNIT/ML 3 ML VIAL SUBCUT ×4 (07:52→20:49)
[2022-04-26] MEDS: Insulin Glargine,Hum.rec.anlog 100 UNIT/ML 10 ML VIAL 25 UNIT SUBCUT (07:53)
[2022-04-26] MEDS: metFORMIN HCl 1,000 MG TABLET 1000 MG PO ×2 (07:53→16:45)
[2022-04-26] MEDS: 0.9 % Sodium Chloride Flush 3 ML SYRINGE IVFLUSH ×3 (07:53→22:09)
[2022-04-26 11:01] VITALS: BP 139/90; PULSE 200; RESP 18; TEMP 37.3; O2SAT 93
[2022-04-26 11:36] LABS: Glucose, Whole Blood 323 mg/dL (60-115)
--- NOTE | 2022-04-26 11:48 | P.PNIM_ITS ---
Subjective Subjective Date of Service: 04/26/22 Interval History: seen and examined this morning follow up for cellulitis, hyperglycemia reporting ongoing left leg pain, blister on left calf unroofed overnight no fever, chills Review of Systems Review of Systems: Yes all other systems are reviewed and are negative Constitutional Constitutional: Denies chills and Denies fever(s) ENT Ears, Nose, Mouth, and Throat: Denies dizziness Cardiovascular Cardiovascular: Denies chest pain, Denies palpitations and Denies dyspnea Respiratory Respiratory: Denies cough and Denies dyspnea Gastrointestinal Gastrointestinal: Denies abdominal pain, Denies nausea and Denies vomiting Neurologic Neurologic: Denies dizziness Endocrine Endocrine: Denies palpitations Physical Exam Vital Signs: Vital Signs: Last Vital Signs Temp 99.1 F 04/26/22 11:01 Pulse 200 H 04/26/22 11:01 Resp 18 04/26/22 11:01 BP 139/90 H 04/26/22 11:01 Pulse Ox 93 04/26/22 11:01 O2 Del Method 04/26/22 11:01 O2 Flow Rate 2 04/26/22 07:15 BMI result Body Mass Index 70.4 Const: General: cooperative, comfortable, alert and awake Nutritional Appearance: obese Orientation/consciousness: patient oriented x3 Resp: Effort & Inspection: normal respiratory effort and able to speak in complete sentences Auscultation: diminished lung sounds Cardio: Other: distant heart sounds GI: Inspection: No distended, Yes Abdominal panniculus present and Yes obesity Palpation (GI): Soft to palpation Skin: Other: left lower extremity, warm, tender to touch Neuro: General: patient oriented x3 and CN's II-XI intact bilaterally Objective Data Active Medications Acetaminophen (Acetaminophen 325 Mg Tablet) 650 mg PO Q6H PRN PRN Reason: Pain, Mild (Pain Scale 1-3) Last Admin: 04/26/22 02:50 Dose: 650 mg Documented By: TIFFANY Dextrose (Dextrose 50 % 25 Gm/50 Ml Syringe) 25 gm IVPUSH Q15M PRN; Protocol PRN Reason: per Hypoglycemia Standing Ord. Docusate Sodium (Docusate Sodium 100 Mg Capsule) 100 mg PO DAILY PRN PRN Reason: Constipation Enoxaparin Sodium (Enoxaparin Sodium 40 Mg/0.4 Ml Syringe) 40 mg SUBCUT Q12H REPLACED BY [facility] Last Admin: 04/26/22 00:02 Dose: 40 mg Documented By: NICHOL Glucose (Glucose Gel 15 Gm Gel..Gram.) 15 gm PO Q15M PRN; Protocol PRN Reason: per Hypoglycemia Standing Ord. Cefazolin Sodium/Dextrose (Ancef) 2 gm in 50 mls @ 100 mls/hr IV Q8H REPLACED BY [facility] Last Infusion: 04/26/22 07:42 Dose: 0 mls/hr Documented By: JUSTINE Insulin Glargine (Insulin Glargine,Hum.Rec.Anlog 100 Unit/Ml 10 Ml Vial) 25 unit SUBCUT DAILY REPLACED BY [facility] Last Admin: 04/26/22 07:53 Dose: 25 unit Documented By: JUSTINE Insulin Human Lispro (Insulin Lispro 100 Unit/Ml 3 Ml Vial) 0 unit SUBCUT QIDACHS REPLACED BY [facility]; Protocol Last Admin: 04/26/22 07:52 Dose: 6 unit Documented By: JUSTINE Metformin HCl (Metformin Hcl 1,000 Mg Tablet) 1,000 mg PO BIDWM REPLACED BY [facility] Last Admin: 04/26/22 07:53 Dose: 1,000 mg Documented By: JUSTINE Ondansetron HCl (Ondansetron Hcl 4 Mg/2 Ml Vial) 4 mg IVPUSH Q8H PRN PRN Reason: Nausea and Vomiting Oxycodone HCl (Oxycodone Hcl Immed Release 5 Mg Tablet) 5 mg PO Q6H PRN PRN Reason: Pain, Severe (Pain Scale 7-10) Last Admin: 04/26/22 02:51 Dose: 5 mg Documented By: TIFFANY Pharmacy Consult (Consult Rx Perform Med Rec) 1 each MISCELLANE ONCE PRN PRN Reason: Consult order Sodium Chloride (0.9 % Sodium Chloride Flush 3 Ml Syringe) 3 ml IVFLUSH QSHIFT REPLACED BY [facility] Last Admin: 04/26/22 07:53 Dose: 3 ml Documented By: JUSTINE Labs CBC & Chem 7: 04/23/22 06:19 04/23/22 06:20 Labs: Laboratory Results - last 24 hr 04/25/22 04/25/22 04/25/22 11:43 15:02 19:17 POC Glucose 361 H* 358 H* 357 H* 04/25/22 04/26/22 04/26/22 21:14 07:19 11:07 POC Glucose 290 H 297 H 323 H Assessment and Plan (1) Hyperglycemia due to type 2 diabetes mellitus: Status: Acute (2) Cellulitis of left leg: Status: Acute Plan 31-year-old male with past medical history of diabetes noncompliant with metformin presents to the hospital with complaints of upper glycemia as well as cellulitis of the like Diabetes with Hyperglycemia d/t non-compliance, A1C 11.7 added metformin 500 bid on 04/24, increased to 1000 bid Lantus 15 daily started on 04/24, increased to 25 continue SSI diet education/diabetes education and insulin teaching Would recommend insulin at discharge sepsis d/t cellulitis of left lower extremity. sepsis resolved has been on cefazolin, seen by ID, rec change to clindamycin if not improving cefazolin for 4 days, does appear to have much improvement; will change to clindamycin Super morbid obesity--weight loss advised probable sleep apnea, rec outpatient sleep study hypertension noncompliant with meds previously on HCTZ 25- not filled since summer, if bp remains elevated can consider restarting mood disorder/Schizophrenia noncompliant with meds outpatient follow up with prescriber DVT prophylaxis: Lovenox attending - dr. lester Need for inpatient: extensive cellulitis of the leg, needing IV Abx and uncontrolled new diabetes Time Spent With Patient Time: Total time managing care of this patient today ____ minutes. Quality Stroke Does the patient have a stroke diagnosis?: No VTE Prior VTE?: No VTE Risk Level:: Medical - moderate - high VTE Device Contraindication: Treatment Not Indicated VTE Drug Contraindication: N/A - Med Ordered
[2022-04-26] MEDS: Clindamycin Phosphate/D5W 900 MG/50 ML PIGGYBACK 50 MG IV ×2 (14:40→20:51)
[2022-04-26 16:00] VITALS: BP 123/82; PULSE 97; RESP 18; TEMP 35.7; O2SAT 96
[2022-04-26 16:28] LABS: Glucose, Whole Blood 342 mg/dL (60-115)
[2022-04-26 20:00] VITALS: BP 138/93; PULSE 107; RESP 18; TEMP 37.1; O2SAT 93
[2022-04-26 20:41] LABS: Glucose, Whole Blood 284 mg/dL (60-115)
[2022-04-27] MEDS: oxyCODONE HCl Immed Release 5 MG TABLET PO (00:15)
[2022-04-27 03:34] VITALS: BP 142/85; PULSE 101; RESP 18; TEMP 36.7; O2SAT 93
[2022-04-27] MEDS: Clindamycin Phosphate/D5W 900 MG/50 ML PIGGYBACK 50 MG IV ×2 (03:43→19:25)
[2022-04-27] MEDS: Acetaminophen 325 MG TABLET 650 MG PO ×3 (05:12→23:26)
[2022-04-27 07:01] VITALS: BP 141/91; PULSE 102; RESP 18; TEMP 37.3; O2SAT 90
[2022-04-27 07:16] LABS: Glucose, Whole Blood 252 mg/dL (60-115)
[2022-04-27] MEDS: metFORMIN HCl 1,000 MG TABLET 1000 MG PO ×2 (07:47→16:52)
[2022-04-27] MEDS: Insulin Lispro 100 UNIT/ML 3 ML VIAL SUBCUT ×4 (07:47→21:41)
[2022-04-27] MEDS: 0.9 % Sodium Chloride Flush 3 ML SYRINGE IVFLUSH ×3 (07:48→19:25)
[2022-04-27] MEDS: Insulin Glargine,Hum.rec.anlog 100 UNIT/ML 10 ML VIAL 25 UNIT SUBCUT (07:53)
--- NOTE | 2022-04-27 07:57 | HO.PM.IMPN ---
Subjective Subjective Date of Service: 04/27/22 Interval History: seen and examined this morning follow up for cellulitis, hyperglycemia reporting ongoing left leg pain but now worse Review of Systems no fever no ches apin Constitutional Constitutional: Denies chills and Denies fever(s) ENT Ears, Nose, Mouth, and Throat: Denies dizziness Cardiovascular Cardiovascular: Denies chest pain, Denies palpitations and Denies dyspnea Respiratory Respiratory: Denies cough and Denies dyspnea Gastrointestinal Gastrointestinal: Denies abdominal pain, Denies nausea and Denies vomiting Neurologic Neurologic: Denies dizziness Endocrine Endocrine: Denies palpitations Physical Exam Vital Signs: Vital Signs: Last Vital Signs Temp 99.2 F 04/27/22 07:01 Pulse 102 H 04/27/22 07:01 Resp 18 04/27/22 07:01 BP 141/91 H 04/27/22 07:01 Pulse Ox 90 L 04/27/22 07:01 O2 Del Method 04/27/22 07:01 O2 Flow Rate 2 04/27/22 03:34 BMI result Body Mass Index 70.4 Resp: Effort & Inspection: normal respiratory effort and able to speak in complete sentences Auscultation: clear to auscultation bilaterally and diminished lung sounds Cardio: Other: distant heart sounds Rate: regular rate Rhythm: regular rhythm GI: Inspection: No distended, Yes Abdominal panniculus present and Yes obesity Palpation (GI): Soft to palpation and nontender Auscultation: normal bowel sounds Skin: Other: left lower extremity, warm, tender to touch General skin exam: no rashes or lesions noted Neuro: General: moves all extremities and CN's II-XI intact bilaterally Cognition (Neuro): normal cognition Psych: Appearance: grossly normal Objective Data Active Medications Acetaminophen (Acetaminophen 325 Mg Tablet) 650 mg PO Q6H PRN PRN Reason: Pain, Mild (Pain Scale 1-3) Last Admin: 04/27/22 05:12 Dose: 650 mg Documented By: NICHOL Dextrose (Dextrose 50 % 25 Gm/50 Ml Syringe) 25 gm IVPUSH Q15M PRN; Protocol PRN Reason: per Hypoglycemia Standing Ord. Docusate Sodium (Docusate Sodium 100 Mg Capsule) 100 mg PO DAILY PRN PRN Reason: Constipation Enoxaparin Sodium (Enoxaparin Sodium 40 Mg/0.4 Ml Syringe) 40 mg SUBCUT Q12H [facility] Last Admin: 12/17/22 22:07 Dose: 40 mg Documented By: NICHOL Glucose (Glucose Gel 15 Gm Gel..Gram.) 15 gm PO Q15M PRN; Protocol PRN Reason: per Hypoglycemia Standing Ord. Clindamycin Phosphate (Cleocin) 900 mg in 50 mls @ 50 mls/hr IV Q8H [facility] Last Infusion: 04/27/22 04:53 Dose: 0 mls/hr Documented By: NICHOL Insulin Glargine (Insulin Glargine,Hum.Rec.Anlog 100 Unit/Ml 10 Ml Vial) 25 unit SUBCUT DAILY [facility] Last Admin: 04/27/22 07:53 Dose: 25 unit Documented By: JUSTINE Insulin Human Lispro (Insulin Lispro 100 Unit/Ml 3 Ml Vial) 0 unit SUBCUT QIDACHS [facility]; Protocol Last Admin: 04/27/22 07:47 Dose: 6 unit Documented By: JUSTINE Metformin HCl (Metformin Hcl 1,000 Mg Tablet) 1,000 mg PO BIDWM [facility] Last Admin: 04/27/22 07:47 Dose: 1,000 mg Documented By: JUSTINE Ondansetron HCl (Ondansetron Hcl 4 Mg/2 Ml Vial) 4 mg IVPUSH Q8H PRN PRN Reason: Nausea and Vomiting Oxycodone HCl (Oxycodone Hcl Immed Release 5 Mg Tablet) 5 mg PO Q6H PRN PRN Reason: Pain, Severe (Pain Scale 7-10) Last Admin: 04/27/22 00:15 Dose: 5 mg Documented By: NICHOL Pharmacy Consult (Consult Rx Perform Med Rec) 1 each MISCELLANE ONCE PRN PRN Reason: Consult order Sodium Chloride (0.9 % Sodium Chloride Flush 3 Ml Syringe) 3 ml IVFLUSH QSHIFT [facility] Last Admin: 04/27/22 07:48 Dose: 3 ml Documented By: JUSTINE Labs CBC & Chem 7: 04/23/22 06:19 04/23/22 06:20 Labs: Laboratory Results - last 24 hr 04/26/22 04/26/22 04/26/22 11:07 16:19 19:53 POC Glucose 323 H 342 H 284 H 04/27/22 07:05 POC Glucose 252 H Assessment and Plan (1) Sepsis: Status: Acute (2) Cellulitis of left leg: Status: Acute (3) Hyperglycemia: Status: Acute Plan 31-year-old male with past medical history of diabetes noncompliant with metformin presents to the hospital with complaints of upper glycemia as well as cellulitis of the like Diabetes with Hyperglycemia d/t non-compliance, A1C 11.7 added metformin 500 bid on 04/24, increased to 1000 bid Lantus 15 daily started on 04/24, later increased to 25, increase to 30 today04/27 continue SSI diet education/diabetes education and insulin teaching Should be on insulin at discharge sepsis d/t cellulitis of left lower extremity. sepsis resolved was on cefazolin for 4 days without improvement, and changed to Clinda (D2) by ID Super morbid obesity--weight loss advised probable sleep apnea, rec outpatient sleep study hypertension noncompliant with meds previously on HCTZ 25- not filled since summer, if bp remains elevated can consider restarting mood disorder/Schizophrenia noncompliant with meds outpatient follow up with prescriber DVT prophylaxis: Lovenox Need for inpatient: extensive cellulitis of the leg, needing IV Abx and uncontrolled new diabetes Time Spent With Patient Time: Total time managing care of this patient today ____ minutes. Quality Stroke Does the patient have a stroke diagnosis?: No VTE Prior VTE?: No VTE Risk Level:: Medical - moderate - high VTE Device Contraindication: Treatment Not Indicated VTE Drug Contraindication: N/A - Med Ordered
[2022-04-27 11:26] LABS: Glucose, Whole Blood 362 mg/dL (60-115)
[2022-04-27] MEDS: Enoxaparin Sodium 40 MG/0.4 ML SYRINGE SUBCUT ×2 (11:34→21:40)
[2022-04-27] MEDS: Insulin Glargine,Hum.rec.anlog 100 UNIT/ML 10 ML VIAL SUBCUT (11:36)
[2022-04-27 11:52] VITALS: BP 143/95; PULSE 103; RESP 18; TEMP 37.1; O2SAT 91
[2022-04-27] MEDS: Clindamycin Phosphate/D5W 900 MG/50 ML PIGGYBACK 100 MG IV (13:41)
[2022-04-27 15:49] VITALS: BP 145/81; PULSE 100; RESP 21; TEMP 36.2; O2SAT 97
[2022-04-27 16:26] LABS: Glucose, Whole Blood 338 mg/dL (60-115)
--- NOTE | 2022-04-27 16:56 | PC.NURSE ---
Patient has a reedened area left armpit,hard to touch,small opening present ,Dr. Rubio made aware,will monitor.
[2022-04-27 20:00] VITALS: BP 134/79; PULSE 94; RESP 19; TEMP 36.7
[2022-04-27 21:11] LABS: Glucose, Whole Blood 242 mg/dL (60-115)
[2022-04-28] VITALS: BP 181/81; PULSE 104; RESP 20; TEMP 36.2; O2SAT 81
[2022-04-28 02:43] VITALS: BP 138/99; PULSE 106; RESP 20; TEMP 36.6; O2SAT 96
[2022-04-28] MEDS: Clindamycin Phosphate/D5W 900 MG/50 ML PIGGYBACK 50 MG IV ×3 (03:22→19:30)
[2022-04-28 07:32] VITALS: BP 142/89; PULSE 101; RESP 20; TEMP 37.1; O2SAT 92
[2022-04-28 07:38] LABS: Glucose, Whole Blood 263 mg/dL (60-115)
[2022-04-28] MEDS: Insulin Glargine,Hum.rec.anlog 100 UNIT/ML 10 ML VIAL 30 UNIT SUBCUT (08:09)
[2022-04-28] MEDS: Insulin Lispro 100 UNIT/ML 3 ML VIAL SUBCUT ×4 (08:10→20:30)
[2022-04-28] MEDS: metFORMIN HCl 1,000 MG TABLET 1000 MG PO ×2 (08:10→16:45)
[2022-04-28] MEDS: 0.9 % Sodium Chloride Flush 3 ML SYRINGE IVFLUSH ×3 (08:10→19:30)
--- NOTE | 2022-04-28 08:26 | P.PNIM_ITS ---
Subjective Subjective Date of Service: 04/28/22 Interval History: seen and examined this morning follow up for cellulitis, hyperglycemia Feels much better Review of Systems no fever no ches apin Physical Exam Vital Signs: Vital Signs: Last Vital Signs Temp 98.7 F 04/28/22 07:32 Pulse 101 H 04/28/22 07:32 Resp 20 04/28/22 07:32 BP 142/89 H 04/28/22 07:32 Pulse Ox 92 04/28/22 07:32 O2 Del Method 04/28/22 07:32 O2 Flow Rate 2 04/27/22 03:34 FiO2 92 04/27/22 20:00 BMI result Body Mass Index 70.4 Const: Other: General: AO X 3, no acute distress Resp: CTA bilateral CVS: S1,S2,RRR GI: +BS, NT, no distention Skin: , redness of left leg with superimpse chronic venous stasis changes, there is a lupm in left axila Neuro: motor grossly intact Psych: appropriate affect Objective Data Active Medications Acetaminophen (Acetaminophen 325 Mg Tablet) 650 mg PO Q6H PRN PRN Reason: Pain, Mild (Pain Scale 1-3) Last Admin: 04/27/22 23:26 Dose: 650 mg Documented By: KETTY Dextrose (Dextrose 50 % 25 Gm/50 Ml Syringe) 25 gm IVPUSH Q15M PRN; Protocol PRN Reason: per Hypoglycemia Standing Ord. Docusate Sodium (Docusate Sodium 100 Mg Capsule) 100 mg PO DAILY PRN PRN Reason: Constipation Enoxaparin Sodium (Enoxaparin Sodium 40 Mg/0.4 Ml Syringe) 40 mg SUBCUT Q12H [facility] Last Admin: 04/27/22 21:40 Dose: 40 mg Documented By: KETTY Glucose (Glucose Gel 15 Gm Gel..Gram.) 15 gm PO Q15M PRN; Protocol PRN Reason: per Hypoglycemia Standing Ord. Clindamycin Phosphate (Cleocin) 900 mg in 50 mls @ 50 mls/hr IV Q8H [facility] Last Infusion: 04/28/22 04:41 Dose: 0 mls/hr Documented By: KETTY Insulin Glargine (Insulin Glargine,Hum.Rec.Anlog 100 Unit/Ml 10 Ml Vial) 30 unit SUBCUT DAILY [facility] Last Admin: 04/28/22 08:09 Dose: 30 unit Documented By: ANH Insulin Human Lispro (Insulin Lispro 100 Unit/Ml 3 Ml Vial) 0 unit SUBCUT QIDACHS [facility]; Protocol Last Admin: 04/28/22 08:10 Dose: 6 unit Documented By: ANH Metformin HCl (Metformin Hcl 1,000 Mg Tablet) 1,000 mg PO BIDWM [facility] Last Admin: 04/28/22 08:10 Dose: 1,000 mg Documented By: ANH Ondansetron HCl (Ondansetron Hcl 4 Mg/2 Ml Vial) 4 mg IVPUSH Q8H PRN PRN Reason: Nausea and Vomiting Pharmacy Consult (Consult Rx Perform Med Rec) 1 each MISCELLANE ONCE PRN PRN Reason: Consult order Sodium Chloride (0.9 % Sodium Chloride Flush 3 Ml Syringe) [facility] Last Admin: 04/28/22 08:10 Dose: 3 ml Documented By: ANH Labs CBC & Chem 7: 04/28/22 08:51 04/23/22 06:20 Labs: Laboratory Results - last 24 hr 04/27/22 04/27/22 04/27/22 11:06 16:13 20:30 POC Glucose 362 H* 338 H 242 H 04/28/22 07:30 POC Glucose 263 H Microbiology Microbiology Results: Microbiology 04/22/22 22:19 Blood Culture - Final Blood - Venous No growth after 5 days. 04/22/22 22:19 Blood Culture - Final Blood - Venous No growth after 5 days. Assessment and Plan (1) Sepsis: Status: Acute (2) Cellulitis of left leg: Status: Acute (3) Hyperglycemia: Status: Acute Plan 31-year-old male with past medical history of diabetes noncompliant with metformin presents to the hospital with complaints of upper glycemia as well as cellulitis of the like Diabetes with Hyperglycemia d/t non-compliance, A1C 11.7 added metformin 500 bid on 04/24, increased to 1000 bid Lantus 15 daily started on 04/24, later increased to 25, increase to 30 today04/27 continue SSI diet education/diabetes education and insulin teaching Should be on insulin at discharge sepsis d/t cellulitis of left lower extremity. sepsis resolved was on cefazolin for 4 days without improvement, and changed to Clinda (D3) by ID Super morbid obesity--weight loss advised probable sleep apnea, rec outpatient sleep study hypertension noncompliant with meds previously on HCTZ 25- not filled since summer, if bp remains elevated can consider restarting mood disorder/Schizophrenia noncompliant with meds outpatient follow up with prescriber DVT prophylaxis: Lovenox Need for inpatient: extensive cellulitis of the leg, needing IV Abx and uncontrolled new diabetes Time Spent With Patient Time: Total time managing care of this patient today ____ minutes. Quality Stroke Does the patient have a stroke diagnosis?: No VTE Prior VTE?: No VTE Risk Level:: Medical - moderate - high VTE Device Contraindication: Treatment Not Indicated VTE Drug Contraindication: N/A - Med Ordered
[2022-04-28 09:23] LABS: Hematocrit 41.4 % (42.0-52.0); Hemoglobin 13.2 g/dl (14.0-18.0); Mean Corpuscular HGB Conc 31.9 g/dl (31.0-36.0); Mean Corpuscular Hemoglobin 27.3 pg (27.0-33.0); Mean Corpuscular Volume 85.7 fL (80.0-98.0); Mean Platelet Volume 10.2 fL (9.4-12.4); NRBC Pct Auto 0.2 /100WBC (0.0-0.2); Platelet Count 230 X10*3/uL (160-400); Red Blood Count 4.83 X10*6/uL (4.60-5.80); White Blood Count 9.4 X10*3/uL (4.8-10.8)
[2022-04-28 11:23] LABS: Glucose, Whole Blood 336 mg/dL (60-115)
[2022-04-28 12:00] VITALS: BP 141/75; PULSE 103; RESP 20; TEMP 36.8; O2SAT 98
[2022-04-28] MEDS: Insulin Glargine,Hum.rec.anlog 100 UNIT/ML 10 ML VIAL SUBCUT (12:00)
[2022-04-28] MEDS: Enoxaparin Sodium 40 MG/0.4 ML SYRINGE SUBCUT ×2 (12:02→23:37)
[2022-04-28 15:17] VITALS: BP 143/95; PULSE 100; RESP 20; TEMP 35.6; O2SAT 90
[2022-04-28 16:01] LABS: Glucose, Whole Blood 346 mg/dL (60-115)
[2022-04-28] MEDS: Acetaminophen 325 MG TABLET 650 MG PO ×2 (16:05→23:38)
--- NOTE | 2022-04-28 16:21 | MHC.CLN ---
NUTRITION CONSULT FOR NON COMPLIANT WITH DIABETIC DIET. PATIENT WITH QUESTIONS ABOUT ADDED SUGAR, PORTION SIZES AND CARBOHYDRATES. PROVIDED HEALTHY MEAL PLANNING HANDOUT WITH DISCUSSION. COULD BENEFIT FROM OUTPATIENT DIABETIC EDUCATION.
[2022-04-28 19:04] VITALS: BP 140/76; PULSE 100; RESP 20; TEMP 36.2; O2SAT 91
[2022-04-28 19:52] LABS: Glucose, Whole Blood 277 mg/dL (60-115)
[2022-04-29] VITALS: BP 132/76; PULSE 100; RESP 16; TEMP 36.8; O2SAT 92
[2022-04-29] MEDS: Clindamycin Phosphate/D5W 900 MG/50 ML PIGGYBACK 50 MG IV ×2 (03:58→11:53)
[2022-04-29 04:00] VITALS: BP 140/92; PULSE 100; RESP 17; TEMP 37.1; O2SAT 95
[2022-04-29 07:06] VITALS: BP 145/90; PULSE 92; RESP 20; TEMP 36.1; O2SAT 92
[2022-04-29 07:32] LABS: Glucose, Whole Blood 332 mg/dL (60-115)
[2022-04-29] MEDS: Insulin Lispro 100 UNIT/ML 3 ML VIAL SUBCUT ×2 (07:53→11:52)
[2022-04-29] MEDS: metFORMIN HCl 1,000 MG TABLET 1000 MG PO (07:53)
[2022-04-29] MEDS: 0.9 % Sodium Chloride Flush 3 ML SYRINGE IVFLUSH (07:53)
[2022-04-29] MEDS: Insulin Glargine,Hum.rec.anlog 100 UNIT/ML 10 ML VIAL 35 UNIT SUBCUT (07:53)
[2022-04-29 08:01] LABS: Creatinine Clr Calc Pharmacy 256.7; Estimated Glomerular Filt Rate > 60
[2022-04-29] MEDS: Acetaminophen 325 MG TABLET 650 MG PO (08:56)
--- NOTE | 2022-04-29 10:41 | PM.DS ---
DS: Providers Provider Date of Service: 04/29/22 Date of admission: 04/22/22 23:05 Primary care physician: Nader Cortes III, MD Consults: 04/25/22 10:26 Consult to Infectious Diseases Routine Consulting Provider: Elizabeth Franco Reason for consultation: cellulitis of left leg Has provider been notified: No 04/25/22 16:32 Consult to Psychiatry Routine Consulting Provider: Psych Covering Reason for consultation: depression DS: Diagnosis Discharge Diagnosis (1) Sepsis: Status: Resolved (2) Cellulitis of left leg: Status: Resolved (3) Hyperglycemia: Status: Resolved DS: Summary Hospital Course Hospital Course: Chief Complaint: hyperglyceimia, leg infection ?this is a 31-year-old male with past medical history of type 2 diabetes on metformin, schizophrenia, morbid obesity, hypertension, presents to the hospital with complaints of hyperglycemia as well as lower extremity swelling and pain.? Patient reports that he stop taking his metformin about a month ago because his glucose was improving and was normal.? He also had diarrhea due to the medication and therefore he stopped with a talking to his doctor.? He is complaining of left lower extremity redness, pain that started 3 days ago.? Patient reports no injury or trauma.? Patient denies any fever or chills, denies any chest pain, no palpitations, no abdominal pain no diarrhea or constipation, no urinary symptoms and no headache or change in vision. On arrival to the ED patient hemodynamically stable with a heart rate of 119, patient also has an elevated respiratory rate of 28, Labs are significant for WBC count of 14.8, PT of 6-3, INR of 1.4, glucose of 483, hemoglobin A1c of 11.7, urine negative for infection ,Lactic acid of 1.7 ?venous duplex of lower extremity shows no DVT Hospital course: Diabetes with Hyperglycemia d/t non-compliance, A1C 11.7. He was on no meds. He has been started on Insulin and Metformin, presently Lantus 35 (discharge with 40, Sliding scale insulin and Metformin 1000 bid and has received diet education and instruction on weight loss as well. Visiting nurses to do more education. He will likely need more med adjustment. Insulin will be delivered by pen and all other supplies providers sepsis d/t cellulitis of left lower extremity. sepsis resolved. Initially was treated with Cefazolin for 4 days with delay recovery and was then seen by ID (Dr. Franco) and changed to Clindamycin now 4 days and will discharge with Clindamcyin. Leg looks much better there will be resudual discolaration in the leg due to chronic stasis dermatitis. Super morbid obesity--weight loss advised probable sleep apnea, rec outpatient sleep study hypertension--started on mood disorder/Schizophrenia noncompliant with meds outpatient follow up with? prescriber Time Spent with Patient Time attestation: Total time managing care of this patient today ____ minutes. Discharge coordination time: Greater than 30 minutes Quality: Safe Use of Opioids Does Pt have an Active Cancer Diagnosis on the Problem List?: No Quality: Stroke Does the patient have a stroke diagnosis?: No Physical Exam Vital Signs: Vital Signs: Last Vital Signs Temp 97 F 04/29/22 07:06 Pulse 92 04/29/22 07:06 Resp 20 04/29/22 07:06 BP 145/90 H 04/29/22 07:06 Pulse Ox 92 04/29/22 07:06 O2 Del Method 04/29/22 07:06 O2 Flow Rate 2 04/27/22 03:34 FiO2 93 04/28/22 15:17 BMI result Body Mass Index 70.4 DS: Data Data Completed and Pending Labs on day of discharge: Laboratory Results - last 24 hr 04/28/22 04/28/22 04/28/22 11:15 15:21 19:20 Creatinine Estim Creat Clear Calc Estimated GFR POC Glucose 336 H 346 H 277 H 04/29/22 04/29/22 07:06 07:37 Creatinine 0.66 Estim Creat Clear Calc 256.7 Estimated GFR > 60 POC Glucose 332 H Discharge Plan Discharge Anticipated Discharge Date/Time: 04/29/22 10:25 Patient Disposition: Home Health Service Discharge Diagnosis: Cellulitis of the leg, new onset diabetes Referrals: [facility] [Outside] - 1 Day ([facility] ) Nader Cortes III, MD [Primary Care Provider] - 1 Week Discharge Medications: New metformin 1,000 mg Tablet 1,000 mg PO BIDWM Qty: 60 0RF (DME) FreeStyle Lite Strips Strip Qty: 100 0RF Rx Instructions: Test four times a day or as directed. (DME) blood-glucose meter [FreeStyle Lite Meter] Kit Qty: 1 0RF Rx Instructions: As Directed alcohol swabs Pads, Medicated 1 pad TOPICAL QIDACHS Qty: 100 0RF Rx Instructions: Use four times a day or as directed. insulin lispro [Humalog KwikPen Insulin] 100 unit/mL insulin pen 0 sliding scale dose SUBCUT QIDACHS Qty: 15 0RF Rx Instructions: Blood Sugar: <150 - 0 units 151-200 - 2 units 201-250 - 4 units 251-300 - 6 units 301-350 - 8 units >350 - 10 units insulin glargine [Lantus Solostar U-100 Insulin] 100 unit/mL (3 mL) insulin pen 35 unit SUBCUT DAILY Qty: 15 0RF (DME) pen needle, diabetic 32 gauge x 1/4 needle Qty: 100 0RF Rx Instructions: Use four times a day or as directed. (DME) lancets [FreeStyle Lancets] 28 gauge misc Qty: 100 0RF Rx Instructions: Test four times a day or as directed. clindamycin HCl 300 mg capsule 300 mg PO TID Qty: 15 0RF amlodipine 5 mg Tablet 5 mg PO DAILY Qty: 30 0RF Protocol: Hold for SBP< HOLD for SBP < : 90 Discharge Orders: Discharge Order (Routine); Ordered 04/29/22 Ordered By: Elliot Rubio Diet: Diabetic diet Activity on Discharge: As tolerated Stand Alone Forms: Patient Portal Discharge page, Work/School Release Care Plan Goals: Full reocovery from cellulitis and control of diabetes Health Concerns: Cellulitis of the left leg and new onset diabetes as well as morbid obesity Plan of Treatment: Take Clindamycin 300 mg 3 times a day follow up with your Doctor in a week, Use insulin as directed and follow diabetic diet, check your sugars before meals and at bedtime Follow up with weight loss program Assessment: as above Discharge Date/Time: 04/29/22 14:29
[2022-04-29] MEDS: amLODIPine Besylate 5 MG TABLET PO (11:01)
[2022-04-29 11:14] LABS: Glucose, Whole Blood 292 mg/dL (60-115)
[2022-04-29 11:46] VITALS: TEMP 36.6
--- NOTE | 2022-04-29 12:45 | P.F2F_ITS ---
Service Date Service Date: 04/29/22 Encounter Date of encounter: 04/29/22 Reasons for Services Signs and symptoms assessed: Poorly controlled diabetes Reason for care home: medication management and teach disease management Homebound: Leaving the home is medically contraindicated at this time without the asist of a device and/or another person due th the listed conditions above and below. Reason homebound: weakness related to hospital stay Homebound supporting statement: Homebound due to post hospitalization weakness, morbid obesity... uncontrolled diabetes and therefore needs the assistance of another person Certification: Based on the above findings, I certify that this patient is confined to the home and needs intermittent care home care, physical therapy and/or speech therapy, or continues to need occupational therapy. The patient is under my care, and I have initiated the establishment of the plan of care. The patient will be followed by a physician who will periodically review the plan of care. Time Spent With Patient Time: Total time managing care of this patient today ____ minutes.
--- NOTE | 2022-04-29 12:46 | MHC.CM.PN ---
PT MEDICALLY CLEARED FOR D/C HOME W/NEW [facility] FOR DIABETIC/INSULIN TEACHING [facility] REFERRING PT TO THEIR DIABETIC PROGRAM, PT REPORTS HE WILL ARRANGE HIS OWN TRANSPORTATION. PT REPORTS HIS MOTHER IS DIABETIC AND USES INSULIN IF ANY QUESTIONS ARISE.
== END 2022-04-29 14:29 | disposition home health service (06) | DRG 872 ==
LOC: HO.ED 20:54 → HO.EDOVER 23:22 → HO.S3 04-23 19:18
PROVIDERS: Physician Assistant Medical; Admitting Provider Internal Medicine; Emergency Provider Internal Medicine; PCP Internal Medicine; Visit Provider Internal Medicine
DX: A41.9 Sepsis, unspecified organism (principal); L03.116 Cellulitis of left lower limb; Z68.45 Body mass index [BMI] 70 or greater, adult; F31.81 Bipolar II disorder; F41.9 Anxiety disorder, unspecified; I10 Essential (primary) hypertension; E11.65 Type 2 diabetes mellitus with hyperglycemia; E66.01 Morbid (severe) obesity due to excess calories; Z20.822 Contact with and (suspected) exposure to COVID-19; Z91.14 Patient's other noncompliance with medication regimen; Z88.2 Allergy status to sulfonamides; Z79.4 Long term (current) use of insulin; Z79.899 Other long term (current) drug therapy
CPT/HCPCS: 36415; 71046; 72110; 72220; 80048; 80053; 81001; 81003; 82009; 82565; 82947; 83036; 83605; 83735; 83880; 85025; 85027; 85610; 87040; 87086; 87635; 93005; 93971; 99285; J0690; J0692; J1650; J3370

== ENCOUNTER 2023-02-17 12:58 | Outpatient (AMB) | payer OTHER, SELFPAY ==
--- NOTE | 2023-02-17 11:45 | MHC.OFFVISWM ---
Intake VS Expanded 02/17/23 13:17 BP 152/80 H Blood Pressure Location Rt radial Blood Pressure Position Sitting Pulse 82 Pulse Source Pulse Oximeter Temp 96.5 F L Temperature Source Tympanic Pulse Oximetry 97 Oxygen Delivery Method Room Air Height 5 ft 4 in Weight 387 lb 6.4 oz BMI 66.5 Body Fat % 52.7 Body Fat Mass 204.2 Fat Free Mass 183.2 Visceral Fat Rating 45.0 Body Water % 37.8 Body Water Mass 146.6 Muscle Mass/Score 174.2 Basal Metabolic Rate/Score 2,749 Intake Visit Reasons: (OV) Re-Est SWL Allergies Sulfa (Sulfonamide Antibiotics) [SULFA (SULFONAMIDE ANTIBIOTICS)] Adverse Reaction (Mild, Verified 02/17/23 13:12) BURNING EAR Apples Allergy (Unknown, Uncoded 02/17/23 13:12) Itching Medication List - Last Reconciled 02/17/23 by Susu Moreau PA-C alcohol swabs 1 pad topical QIDACHS amlodipine 5 mg See Protocol PO DAILY blood sugar diagnostic (FreeStyle Lite Strips) Test four times a day or as directed. blood-glucose meter (FreeStyle Lite Meter kit) As Directed dulaglutide (Trulicity) mg subcut lancets (FreeStyle Lancets) Test four times a day or as directed. pen needle, diabetic Use four times a day or as directed. HPI HPI Comments History of Present Illness Details This 32 year old man started our SWL program in 2018, then [facility] SWL prgoram ( was dismissed for missed appts) then restarted our program in June 2021 at 446.9 lbs, highest weight was 480 lbs. He came to one other appt with Adan Echevarria and one with Manisha in July 2021. Didn't use shakes and bars for long - didn't like them the flavor. He was admitted to [facility] Apr 2022 with left leg cellulitis and was discharged home with diagnoses of DM and shizophrenia/mood disorder. 2 of his sisters have had bariatric surgery with Dr Wray at [facility]. He returns now at 387.4 lbs, after stopped drinking sweetened drinks. He stopped his psychiatric meds on his own about 2 months ago. He has an appointment with his med prescriber, Nevin Reyes, later this month. Was taking Latuda. Pre op testing done: Apr 2022 - CXR normal. ECG - sinus tachycardia only. H pylori negative July 2021. Wakes up at 4:30 am and bed at 11 pm. Works from 5:30 am until 9-10am. Again form 1pm - 5 pm. 9am - iced coffee or juice or energy drink 11 am - bakery sandwich of ham and cheese or DD bagel. Passion fruit juice or OJ, another energy drink 4-5 pm - rice/beans, pork chop or chicken. no vegetables. Zero Coke or other non calorie drink 9pm - oreos cookies or another plate of dinner food. Glass of whole milk. Sugar free soda. Snacks - 3-4 times per day. In between meals eats sweet pastries or chips or hot dogs. If comes home (1am) after drinking with his friends - will eat from food trucks. ETOH - 2 d/week has 4-5 miles with sugar free energy drinks. Tobacco - none, Marijuana - twice per day - smokes. Exercise - walks outside 1 d/week, over does it , 1 mile in 15 - 20 minutes. Goal is to jog 1 mile . Has gym membership Fasting blood sugar 120 - 110, doesn't check any other time. [facility] Medical History (Updated 02/17/23 @ 14:04 by Susu Moreau PA-C) Schizophrenia Bipolar II disorder Hyperglycemia due to type 2 diabetes mellitus Anxiety Depression Obesity HTN (hypertension) Surgical History History of placement of ear tubes Hx of tonsillectomy Family History Mother Diabetes Father Dialysis patient Hypertension Diabetes Sister Obesity Sister Obesity Sister No problems noted. Brother Diabetes Brother No problems noted. Brother No problems noted. Social History Household Members: Other Household Members Other:: [employer] Housing: Apartment Do you presently have visiting nurse or other home services: No Alcohol intake: current Alcohol intake frequency: a few times a month Alcohol type: hard liquor Patient Tobacco Use Status: Never used Tobacco Tobacco use type: Cigarette Cigarettes Per Day: 2 e-Cigarette/Vaping Use: Former Use Second Hand Smoke Exposure: No Substance Use Type: Marijuana service: No Current occupational status: employed Assessment & Plan Assessment & Plan (1) Morbid obesity with BMI of 70 and over, adult: Code(s): E66.01 - Morbid (severe) obesity due to excess calories; Z68.45 - Body mass index [BMI] 70 or greater, adult Plan: This is a 32 yo man with morbid obesity, DM, HTN and psychiatric diagnosis NOT on any meds, who will start SWL program to prepare for bariatric surgery. Blood work and SS have been ordered. If he progresses well I will order the rest of the pre op work up He is being scheduled for RD and BH initial consultations. He will start SWL classes and watch at 3 classes before his next appt with Manisha. 1. Adequate sleep of 7-8 hours per night discussed, bed by 9pm. No caffeein after 1 pm. 2. Healthy meal plan - stop snacking and stop all sweetened drinks All meals/MR's need to take 20 minutes to complete 8am - 30 gram shake with coffee, only wants RTD shakes 11 am - 30 gram shake 1 pm- yogurt (doesn't want any bars) 4 - 5 pm- dinner of 6oz (10 forks) each of protein and vegetables, 1 fruit 7 pm- shake 9pm - yogurt Exercise - treadmill 4d/ week - speed 2.5, incline 2-5 for 350 calories - will add more once he has a schedule. Pt will purchase body composition analyzer (recommended list given to patient) and weight herself weekly. Next appt with me in 3 weeks. Text me with any questions and weekly weights. Patient is morbidly obese and is not considered stable at this time.?I spent a total of 60 minutes reviewing/updating records, examining the patient and counseling the patient on weight management as detailed above. (2) HTN (hypertension): Code(s): I10 - Essential (primary) hypertension (3) Diabetes: Code(s): E11.9 - Type 2 diabetes mellitus without complications (4) Bipolar II disorder: Code(s): F31.81 - Bipolar II disorder (5) Schizophrenia: Code(s): F20.9 - Schizophrenia, unspecified Orders: Orders Complete Blood Count Auto Diff Today E66.01 - Morbid (severe) obesity due to excess calories, F20.9 - Schizophrenia, unspecified, I10 - Essential (primary) hypertension, Z01.818 - Encounter for other preprocedural examination, Z68.45 - Body mass index [BMI] 70 or greater, adult Vitamin B12 and Folate Today E66.01 - Morbid (severe) obesity due to excess calories, F20.9 - Schizophrenia, unspecified, I10 - Essential (primary) hypertension, Z01.818 - Encounter for other preprocedural examination, Z68.45 - Body mass index [BMI] 70 or greater, adult Comprehensive Met. Panel Today E66.01 - Morbid (severe) obesity due to excess calories, F20.9 - Schizophrenia, unspecified, I10 - Essential (primary) hypertension, Z01.818 - Encounter for other preprocedural examination, Z68.45 - Body mass index [BMI] 70 or greater, adult Vitamin B1 Today E66.01 - Morbid (severe) obesity due to excess calories, F20.9 - Schizophrenia, unspecified, I10 - Essential (primary) hypertension, Z01.818 - Encounter for other preprocedural examination, Z68.45 - Body mass index [BMI] 70 or greater, adult Ferritin Today E66.01 - Morbid (severe) obesity due to excess calories, F20.9 - Schizophrenia, unspecified, I10 - Essential (primary) hypertension, Z01.818 - Encounter for other preprocedural examination, Z68.45 - Body mass index [BMI] 70 or greater, adult TSH reflex Free T4 Today E66.01 - Morbid (severe) obesity due to excess calories, F20.9 - Schizophrenia, unspecified, I10 - Essential (primary) hypertension, Z01.818 - Encounter for other preprocedural examination, Z68.45 - Body mass index [BMI] 70 or greater, adult H Pylori Breath Test Today E66.01 - Morbid (severe) obesity due to excess calories, F20.9 - Schizophrenia, unspecified, I10 - Essential (primary) hypertension, Z01.818 - Encounter for other preprocedural examination, Z68.45 - Body mass index [BMI] 70 or greater, adult Hemoglobin A1c Today E66.01 - Morbid (severe) obesity due to excess calories, F20.9 - Schizophrenia, unspecified, I10 - Essential (primary) hypertension, Z01.818 - Encounter for other preprocedural examination, Z68.45 - Body mass index [BMI] 70 or greater, adult Insulin Today E66.01 - Morbid (severe) obesity due to excess calories, F20.9 - Schizophrenia, unspecified, I10 - Essential (primary) hypertension, Z01.818 - Encounter for other preprocedural examination, Z68.45 - Body mass index [BMI] 70 or greater, adult Lipid Panel Today E66.01 - Morbid (severe) obesity due to excess calories, F20.9 - Schizophrenia, unspecified, I10 - Essential (primary) hypertension, Z01.818 - Encounter for other preprocedural examination, Z68.45 - Body mass index [BMI] 70 or greater, adult IRON PROFILE Today E66.01 - Morbid (severe) obesity due to excess calories, F20.9 - Schizophrenia, unspecified, I10 - Essential (primary) hypertension, Z01.818 - Encounter for other preprocedural examination, Z68.45 - Body mass index [BMI] 70 or greater, adult Zinc Today E66.01 - Morbid (severe) obesity due to excess calories, F20.9 - Schizophrenia, unspecified, I10 - Essential (primary) hypertension, Z01.818 - Encounter for other preprocedural examination, Z68.45 - Body mass index [BMI] 70 or greater, adult Vitamin A Today E66.01 - Morbid (severe) obesity due to excess calories, F20.9 - Schizophrenia, unspecified, I10 - Essential (primary) hypertension, Z01.818 - Encounter for other preprocedural examination, Z68.45 - Body mass index [BMI] 70 or greater, adult C Reactive Protein Today E66.01 - Morbid (severe) obesity due to excess calories, F20.9 - Schizophrenia, unspecified, I10 - Essential (primary) hypertension, Z01.818 - Encounter for other preprocedural examination, Z68.45 - Body mass index [BMI] 70 or greater, adult PTHI Today E66.01 - Morbid (severe) obesity due to excess calories, F20.9 - Schizophrenia, unspecified, I10 - Essential (primary) hypertension, Z01.818 - Encounter for other preprocedural examination, Z68.45 - Body mass index [BMI] 70 or greater, adult Vitamin D 25-OH Total Today E66.01 - Morbid (severe) obesity due to excess calories, F20.9 - Schizophrenia, unspecified, I10 - Essential (primary) hypertension, Z01.818 - Encounter for other preprocedural examination, Z68.45 - Body mass index [BMI] 70 or greater, adult FL upper GI w air Today E66.01 - Morbid (severe) obesity due to excess calories, F20.9 - Schizophrenia, unspecified, I10 - Essential (primary) hypertension, Z01.818 - Encounter for other preprocedural examination, Z68.45 - Body mass index [BMI] 70 or greater, adult RT home sleep study Today E66.01 - Morbid (severe) obesity due to excess calories, G47.19 - Other hypersomnia, I10 - Essential (primary) hypertension, Z01.818 - Encounter for other preprocedural examination, Z68.45 - Body mass index [BMI] 70 or greater, adult Referrals Behavioral Health Referral E66.01 - Morbid (severe) obesity due to excess calories, F20.9 - Schizophrenia, unspecified, I10 - Essential (primary) hypertension, Z01.818 - Encounter for other preprocedural examination, Z68.45 - Body mass index [BMI] 70 or greater, adult Nutrition/Dietitian Referral E66.01 - Morbid (severe) obesity due to excess calories, F20.9 - Schizophrenia, unspecified, I10 - Essential (primary) hypertension, Z01.818 - Encounter for other preprocedural examination, Z68.45 - Body mass index [BMI] 70 or greater, adult Coding Level of Care Code Est Pt Level 5 (48018) Diagnoses Morbid obesity with BMI of 70 and over, adult E66.01; Z68.45 HTN (hypertension) I10 Diabetes E11.9 Bipolar II disorder F31.81 Schizophrenia F20.9
[2023-02-17 13:17] VITALS: BP 152/80; PULSE 82; TEMP 35.8; O2SAT 97; BMI 66.5
== END 2023-02-17 14:11 | disposition home or self-care (01) ==
PROVIDERS: PCP Internal Medicine; Visit Provider Physician Assistant
DX: E66.01 Morbid (severe) obesity due to excess calories (principal); Z68.45 Body mass index [BMI] 70 or greater, adult; I10 Essential (primary) hypertension; E11.9 Type 2 diabetes mellitus without complications; F31.81 Bipolar II disorder; F20.9 Schizophrenia, unspecified
CPT/HCPCS: 99215

== ENCOUNTER → 2023-02-17 12:58 | Outpatient (BNVA) | payer OTHER, SELFPAY | PROVIDERS: PCP Internal Medicine; Visit Provider Physician Assistant | DX: E66.01 Morbid (severe) obesity due to excess calories (principal); Z68.45 Body mass index [BMI] 70 or greater, adult; I10 Essential (primary) hypertension; E11.9 Type 2 diabetes mellitus without complications; F31.81 Bipolar II disorder; F20.9 Schizophrenia, unspecified | CPT/HCPCS: 99212 ==

== ENCOUNTER 2023-02-18 07:30 | Outpatient (REF) | payer OTHER, SELFPAY ==
[2023-02-19 09:39] LABS: Calcium (PTHI) 8.9 mg/dL (8.6-10.3); PTHI 56 pg/mL (16-77)
[2023-02-21 16:39] LABS: Zinc 64 mcg/dL (60-130)
[2023-02-23 00:29] LABS: Vitamin B1 11 nmol/L (8-30)
[2023-02-24 11:13] LABS: Vitamin A 26 mcg/dL (38-98)
== END 2023-02-18 07:31 | disposition home or self-care (01) ==
LOC: HO.LAB 07:30
PROVIDERS: PCP Internal Medicine; Visit Provider Physician Assistant
DX: Z01.818 Encounter for other preprocedural examination (principal); E66.01 Morbid (severe) obesity due to excess calories; Z68.45 Body mass index [BMI] 70 or greater, adult; I10 Essential (primary) hypertension; F20.9 Schizophrenia, unspecified
CPT/HCPCS: 36415; 80053; 80061; 82306; 82607; 82728; 82746; 83036; 83525; 83540; 83970; 84425; 84443; 84590; 84630; 85025; 86140

== ENCOUNTER → 2023-03-17 15:42 | Outpatient (BNVA) | payer OTHER, SELFPAY | PROVIDERS: PCP Internal Medicine; Visit Provider Dietitian, Registered | DX: E66.9 Obesity, unspecified (principal) | CPT/HCPCS: 97802 ==

== ENCOUNTER 2023-05-14 08:50 | Observation (INO) | payer OTHER, SELFPAY ==
[2023-05-14] VITALS (7 sets, daily range): BP systolic 133–171; BP diastolic 85–126; PULSE 93–111; RESP 14–22; TEMP 36.9–37.2; O2SAT 94–100; BMI 67.8
--- NOTE | 2023-05-14 09:21 | ED.GENADULT ---
HPI - General Adult General Chief complaint: Abdominal Pain Stated complaint: ABD PAIN,VOMITING,HIGH BS 369 PER EMS Time Seen by Provider: 05/14/23 09:21 Source: patient and EMS Mode of arrival: EMS Limitations: no limitations History of Present Illness HPI narrative: Patient is a 32 year old assigned male at with a history of HTN and DM presenting to the emergency department today with abdominal pain, nausea, and vomiting. Patient states that he took a new kind of metformin last night and ever since has had abdominal pain, nausea, and vomiting. Patient denies any dizziness, lightheadedness, fever, chills, blurry vision, double vision, loss of vision, chest pain, difficulty breathing, shortness of breath, back pain, night sweats, pain with urination, increased urinary frequency, increased urinary urgency, blood in his urine or stool, syncope or a near syncopal episode, recent trauma or falls, bowel incontinence, bladder incontinence, bowel retention, bladder retention, or any other complaints at this time. Onset (ago): hour(s) Location: abdomen Severity: mild Severity scale (1-10): 3 Relieving factors: none Exacerbating factors: none Associated symptoms: nausea/vomiting Treatments prior to arrival: none Related Data Home Medications Medication Instructions Recorded Confirmed dulaglutide 1.5 mg/0.5 mL 1.5 mg subcut TU 05/14/23 05/14/23 subcutaneous [facility]) hydrochlorothiazide 25 mg tablet 25 mg PO DAILY 05/14/23 05/14/23 metformin 500 mg tablet,extended 500 mg PO BID 05/14/23 05/14/23 release 24 hr Previous Rx's Medication Instructions Recorded amlodipine 5 mg tablet 5 mg PO DAILY #30 tabs 04/29/22 blood sugar diagnostic (FreeStyle #100 ea 04/29/22 Lite Strips) blood-glucose meter (FreeStyle #1 ea 04/29/22 Lite Meter kit) lancets 28 gauge (FreeStyle #100 ea 04/29/22 Lancets) pen needle, diabetic 32 gauge x #100 ea 04/29/22 1/ Allergies Allergy/AdvReac Type Severity Reaction Status Date / Time Sulfa (Sulfonamide AdvReac Mild BURNING EAR Verified 05/14/23 09:44 Antibiotics) [SULFA (SULFONAMIDE ANTIBIOTICS)] Apples Allergy Unknown Itching Uncoded 02/17/23 13:12 Review of Systems Constitutional: Constitutional: Reports no additional constitutional complaints, Denies chills, Denies fever(s) and Denies night sweats Eyes: Eyes: Reports no additional eye complaints, Denies blurry vision, Denies change in vision, Denies diplopia, Denies eye discharge, Denies loss of vision and Denies eye pain ENT: Denies dizziness Cardiovascular: Cardiovascular: Reports no additional cardiovascular complaints, Denies chest pain, Denies lightheadedness, Denies Loss of Consciousness and Denies dyspnea Respiratory: Respiratory: Reports no additional respiratory complaints and Denies dyspnea Gastrointestinal: Gastrointestinal: Reports no additional gastrointestinal complaints, Reports abdominal pain, Denies melena, Denies hematochezia, Denies change in bowel habits, Denies change in stool character, Reports nausea and Reports vomiting Genitourinary: Genitourinary: Reports no additional male genitourinary complaints, Denies hematuria, Denies oliguria, Denies difficulty urinating, Denies dysuria, Denies urinary frequency, Denies urinary hesitancy, Denies urinary incontinence and Denies urinary urgency Musculoskeletal: Musculoskeletal: Reports no additional musculoskeletal complaints, Denies numbness and Denies tingling Neurologic: Denies dizziness, Denies loss of vision, Denies numbness and Denies tingling Psychiatric: Psychiatric: Reports no additional psychiatric complaints Endocrine: Endocrine: Reports no additional endocrine complaints Hematologic/Lymphatic: Hematologic/Lymphatic: Reports no additional hematologic/lymphatic complaints Allergic/Immunologic: Allergic/Immunologic: Reports no additional allergic/immunologic complaints PMFSH Past Medical History Attestation statement: The following information was validated with the patient. Source: old records reviewed and nursing notes reviewed Onset Date is defined in the Problem List Problems that require an onset date and time if occurred within 24 hrs of arrival to the ED Aortic Dissection and Rupture; Neurologic impairment; Cardiopulmonary Arrest; Endotracheal Intubation; Insertion or Replacement of Mechanical Circulatory Assist Device Medical History (Updated 05/14/23 @ 14:41 by KACEY Glaser) Pre-op evaluation Bipolar II disorder Schizophrenia Morbid obesity with BMI of 70 and over, adult Obesity Hyperglycemia due to type 2 diabetes mellitus Anxiety Depression HTN (hypertension) Surgical History History of placement of ear tubes Hx of tonsillectomy Family History Family History Mother Diabetes Father Dialysis patient Hypertension Diabetes Sister Obesity Sister Obesity Sister No problems noted. Brother Diabetes Brother No problems noted. Brother No problems noted. Social History Social History Household Members: Other Household Members Other:: ROOMATE Housing: Apartment Do you presently have visiting nurse or other home services: No Alcohol intake: current Alcohol intake frequency: a few times a month Alcohol type: hard liquor Patient Tobacco Use Status: Never used Tobacco Tobacco use type: Cigarette Cigarettes Per Day: 2 Smoked in Last 30 Days: No e-Cigarette/Vaping Use: Former Use Second Hand Smoke Exposure: No Substance Use Type: Marijuana Substance Use Frequency: Daily Advance Directives: No Advance Directives Information Provided: No service: No Current occupational status: employed Physical Exam ED Vital Signs: Vital Signs - 24 hr 05/14/23 09:41 05/14/23 12:08 05/14/23 13:45 Temperature 98.8 F Pulse Rate 94 93 103 H Respiratory Rate 20 20 14 Blood Pressure 147/101 H 159/102 H Pulse Oximetry 100 97 97 Oxygen Delivery Method Room Air Room Air Room Air BMI result Body Mass Index 67.8 Const General: cooperative, no acute distress, alert and awake Nutritional Appearance: well nourished Orientation/consciousness: patient oriented x3 Limitations: no limitations HENMT Head: Yes normal to inspection and Yes atraumatic Ears: hearing grossly normal bilaterally and external ears normal General nose exam: Normal external nose present, no nasal discharge noted and no epistaxis Face and sinus: Yes normal facial exam, No abrasion and No laceration Mouth: Normal oral and palatal mucosa present, no drooling and no muffled voice Eyes General: appearance normal, both eyes and all related structures Periorbital: periorbital findings normal Eyelids: Yes eyelids normal Conjunctivae: conjunctivae normal Pupils: Equal, round and reactive pupils present EOM: EOMs intact bilaterally Neck Neck: Yes normal visual inspection, Yes full ROM and Yes no lymphadenopathy Chest Chest palpation & inspection: normal inspection of the chest Resp Effort & Inspection: normal respiratory effort and able to speak in complete sentences GI Inspection: Yes normal to inspection Palpation (GI): Soft to palpation, not firm, nontender and no guarding Neuro General: patient oriented x3 and moves all extremities Cranial nerves: Yes Equal, round and reactive pupils present Cognition (Neuro): normal cognition Motor exam (neuro): 5/5 motor strength present throughout Sensory Exam: Normal double simultaneous stimulation for sensation Coordination: [id number] test normal Extrem General: Yes normal to inspection, Yes full ROM and Yes capillary refill normal Psych Appearance: grossly normal Mental Status: mental status grossly normal Affect: normal affect Attitude: cooperative Thought process: Normal thought process present Thought content: Normal thought content present Insight: Good insight present (Psych) Medications Administered Generic Name Dose Route Start Last Admin Trade Name Freq PRN Reason Stop Dose Admin Amlodipine Besylate 5 mg 05/14/23 14:15 05/14/23 14:18 Amlodipine Besylate 5 Mg Tablet PO 5 mg DAILY MALICK Administration Protocol Hydrochlorothiazide 25 mg 05/14/23 14:15 05/14/23 14:17 Hydrochlorothiazide 25 Mg Tablet PO 25 mg DAILY MALICK Administration Protocol Discontinued Medications Generic Name Dose Route Start Last Admin Trade Name Freq PRN Reason Stop Dose Admin Sodium Chloride 1,000 mls @ 999 mls/hr 05/14/23 09:30 05/14/23 11:50 Ns IV 05/14/23 10:30 Infused .Q1H1M MALICK Infusion Sodium Chloride 1,000 mls @ 999 mls/hr 05/14/23 10:45 05/14/23 13:01 Ns IV 05/14/23 11:45 Infused .Q1H1M MALICK Infusion Insulin Human Lispro 10 unit 05/14/23 11:26 05/14/23 11:55 Insulin Lispro 100 Unit/Ml 3 Ml Vial SUBCUT 05/14/23 11:27 10 unit ONCE ONE Administration Metoclopramide HCl 10 mg 05/14/23 11:20 05/14/23 11:55 Metoclopramide Hcl 10 Mg/2 Ml Vial IVPUSH 05/14/23 11:21 10 mg ONCE ONE Administration Ondansetron HCl 4 mg 05/14/23 09:21 05/14/23 09:46 Ondansetron Hcl 4 Mg/2 Ml Vial IVPUSH 05/14/23 09:22 4 mg ONCE ONE Administration Medical Decision Making Medical Decision Making MDM Narrative: Patient is a 32 year old assigned male at with a history of HTN and DM presenting to the emergency department today with nausea, vomiting, and abdominal pain. Patient's physical exam was unremarkable. Patient's blood work showed glucose elevated at 421, sodium 133 (138 adjusted), anion gap 19, beta-hydroxybutyrate elevated at 2.05, WBC count elevated at 14.5. Patient's urine showed no acute process. Patient's EKG was unremarkable. Patient was given IV fluids + 10 units of insulin. I spoke to the hospitalist who agreed to admission. I explained my physical exam findings as well as all test results to the patient. I answered all questions asked by the patient. Patient verbalized agreement and understanding with this treatment plan and admission. Differential Diagnosis Differential Diagnoses: The differential diagnosis associated with the presentation includes Hyperglycemia Nausea Vomiting Gastritis HHS DKA Admission/Observation Consideration of admission/observation: Escalation of care including admission/observation considered Patient admitted. Consult Healthcare Provider Management of the patient was discussed with: Hospitalist (Agreed to admission.) Lab Data [facility] Lab Attestation statement: I reviewed the patient's lab results. My interpretation of these results are in the MDM Rationale portion of this note. 05/14/23 09:51 05/14/23 12:27 Labs: Lab Results 05/14/23 05/14/23 05/14/23 Range/Units 09:31 09:51 09:53 WBC 14.5 H (4.8-10.8) X10*3/uL RBC 5.80 (4.60-5.80) X10*6/uL Hgb 15.9 (14.0-18.0) g/dl Hct 46.5 (42.0-52.0) % MCV 80.2 (80.0-98.0) fL MCH 27.4 (27.0-33.0) pg MCHC 34.2 (31.0-36.0) g/dl RDW 13.2 (11.0-16.0) % Plt Count 265 (160-400) X10*3/uL MPV 10.3 (9.4-12.4) fL Immature Gran % (Auto) 0.5 H (0.0-0.4) % Neut % (Auto) 82.1 H (45-73) % Lymph % (Auto) 12.7 L (20-40) % [place] % (Auto) 4.5 (2-11) % Eos % (Auto) 0.1 (0-4) % Baso % (Auto) 0.1 (0-2) % Lymph # (Auto) 1.8 (1.2-4.9) X10*3/uL [place] # (Auto) 0.7 (0.1-1.2) X10*3/uL Eos # (Auto) 0.0 (0.0-0.4) X10*3/uL Baso # (Auto) 0.0 (0.0-0.2) X10*3/uL Abs Immat Gran (auto) 0.07 H (0.00-0.03) X10*3/uL Absolute Neuts (auto) 11.9 H (2.0-8.3) x10*3/uL Absolute Nucleated RBC 0.000 (0.0-0.012) X10*3/uL Nucleated RBC % (auto) 0.0 (0.0-0.2) /100WBC PT 12.0 (11.1-13.3) SEC INR 1.0 (0.9-1.1) APTT 28.1 (26.0-36.4) SEC VBG pH 7.56 H (7.32-7.43) VBG pCO2 23 mmHg VBG pO2 142 mmHg VBG HCO3 20 L (22-26) mmol/L VBG O2 Saturation 100.0 % VBG Base Excess 1.0 mmol/L Sodium 133 L (135-145) mmol/L Potassium 4.6 (3.3-5.1) mmol/L Chloride 99 (96-108) mmol/L Carbon Dioxide 20 L (22-29) mmol/L Anion Gap 19 (12-20) BUN 13 (9-16) mg/dL Creatinine 0.89 (0.5-1.4) mg/dL Estim Creat Clear Calc 183.9 Estimated GFR > 60 Random Glucose 421 H* (60-115) mg/dL Calcium 9.8 D (8.4-10.2) mg/dL Magnesium 1.7 (1.6-2.6) mg/dL Total Bilirubin 0.5 (0.0-1.0) mg/dL AST 19 (5-37) U/L ALT 28 (0-40) U/L Alkaline Phosphatase 90 (39-117) U/L Ammonia 38 (13-55) umol/L Troponin I High Sens < 2.7 (<3.5-35.0) ng/L Total Protein 8.4 H (6.5-8.0) g/dL Albumin 4.2 (3.5-5.0) g/dL Beta-Hydroxybutyrate 2.05 H (0.02-0.27) mmol/L Urine Color Yellow Urine Appearance Clear Urine pH 5.5 (5.0-9.0) Ur Specific [place] >= 1.030 H (1.005-1.025) Urine Protein 100 (2+) H (Neg-Trace) mg/dL Urine Glucose (UA) >=1000 H (Negative) mg/dL Urine Ketones >=160 (Negative) mg/dL Urine Blood Negative (Negative) Urine Nitrite Negative (Negative) Ur Leukocyte Esterase Negative (Negative) Urine RBC 0-2 (0-2) /HPF Urine WBC 0-5 (0-5) /HPF Ur Squamous Epith Cells 3-5 (0-2) /HPF Urine Bacteria Trace (None Seen) Hyaline Casts 0-2 (0-2) /LPF Influenza Type A (PCR) NEGATIVE (Negative) Influenza Type B (PCR) NEGATIVE (Negative) RSV RNA Qual (PCR) NEGATIVE (Negative) SARS-CoV-2 RNA (RT-PCR) NEGATIVE (Negative) 05/14/23 Range/Units 12:27 WBC (4.8-10.8) X10*3/uL RBC (4.60-5.80) X10*6/uL Hgb (14.0-18.0) g/dl Hct (42.0-52.0) % MCV (80.0-98.0) fL MCH (27.0-33.0) pg MCHC (31.0-36.0) g/dl RDW (11.0-16.0) % Plt Count (160-400) X10*3/uL MPV (9.4-12.4) fL Immature Gran % (Auto) (0.0-0.4) % Neut % (Auto) (45-73) % Lymph % (Auto) (20-40) % [place] % (Auto) (2-11) % Eos % (Auto) (0-4) % Baso % (Auto) (0-2) % Lymph # (Auto) (1.2-4.9) X10*3/uL [place] # (Auto) (0.1-1.2) X10*3/uL Eos # (Auto) (0.0-0.4) X10*3/uL Baso # (Auto) (0.0-0.2) X10*3/uL Abs Immat Gran (auto) (0.00-0.03) X10*3/uL Absolute Neuts (auto) (2.0-8.3) x10*3/uL Absolute Nucleated RBC (0.0-0.012) X10*3/uL Nucleated RBC % (auto) (0.0-0.2) /100WBC PT (11.1-13.3) SEC INR (0.9-1.1) APTT (26.0-36.4) SEC VBG pH (7.32-7.43) VBG pCO2 mmHg VBG pO2 mmHg VBG HCO3 (22-26) mmol/L VBG O2 Saturation % VBG Base Excess mmol/L Sodium 138 (135-145) mmol/L Potassium 4.2 (3.3-5.1) mmol/L Chloride 102 (96-108) mmol/L Carbon Dioxide 25 (22-29) mmol/L Anion Gap 15 (12-20) BUN 11 (9-16) mg/dL Creatinine 0.78 (0.5-1.4) mg/dL Estim Creat Clear Calc 209.9 Estimated GFR > 60 Random Glucose 363 H* (60-115) mg/dL Calcium 9.0 D (8.4-10.2) mg/dL Magnesium (1.6-2.6) mg/dL Total Bilirubin (0.0-1.0) mg/dL AST (5-37) U/L ALT (0-40) U/L Alkaline Phosphatase (39-117) U/L Ammonia (13-55) umol/L Troponin I High Sens (<3.5-35.0) ng/L Total Protein (6.5-8.0) g/dL Albumin (3.5-5.0) g/dL Beta-Hydroxybutyrate (0.02-0.27) mmol/L Urine Color Urine Appearance Urine pH (5.0-9.0) Ur Specific [place] (1.005-1.025) Urine Protein (Neg-Trace) mg/dL Urine Glucose (UA) (Negative) mg/dL Urine Ketones (Negative) mg/dL Urine Blood (Negative) Urine Nitrite (Negative) Ur Leukocyte Esterase (Negative) Urine RBC (0-2) /HPF Urine WBC (0-5) /HPF Ur Squamous Epith Cells (0-2) /HPF Urine Bacteria (None Seen) Hyaline Casts (0-2) /LPF Influenza Type A (PCR) (Negative) Influenza Type B (PCR) (Negative) RSV RNA Qual (PCR) (Negative) SARS-CoV-2 RNA (RT-PCR) (Negative) Independent Interpretation I performed an independent interpretation of an: EKG Interpretation: Vent. Rate: 093 BPM Atrial Rate: 093 BPM P-R Int: 192 ms QRS Dur: 084 ms QT Int: 338 ms P-R-T Axes: 031 010 015 degrees QTc Int: 420 ms Normal sinus rhythm Normal ECG When compared with ECG of 22-APR-2022 17:33, No significant change was found Electronically Signed By:Wale Rojas Dictated By: Wale Rojas MD Signed By: Electronically signed by Wale Rojas MD 05/14/23 1354 Independent Historian Clinical information obtained from an independent historian. History obtained from or confirmed by: EMS (EMS provided additional history and confirmed the history provided by the patient.) Chronic Conditions Patient?s care impacted by: Diabetes and Hypertension Critical Care Time Critical Care Time Critical Care Time: Yes Total Critical Care Time: 45 Attestation: I spent 45 minutes of Critical Care Time with this patient. This does not include time spent on separately reported billable procedures. Discharge Plan Discharge Clinical Impression: HTN (hypertension), Diabetes mellitus, Acute hyperglycemia Patient Disposition: Admitted As Inpatient Prescriptions: No Action (DME) FreeStyle Lite Strips Strip Qty: 100 0RF Rx Instructions: Test four times a day or as directed. (DME) blood-glucose meter [FreeStyle Lite Meter] Kit Qty: 1 0RF Rx Instructions: As Directed (DME) pen needle, diabetic 32 gauge x 1/4 needle Qty: 100 0RF Rx Instructions: Use four times a day or as directed. (DME) lancets [FreeStyle Lancets] 28 gauge misc Qty: 100 0RF Rx Instructions: Test four times a day or as directed. amlodipine 5 mg Tablet 5 mg PO DAILY Qty: 30 0RF Protocol: Hold for SBP< HOLD for SBP < : 90 hydrochlorothiazide 25 mg tablet 25 mg PO DAILY metformin 500 mg tablet extended release 24 hr 500 mg PO BID Trulicity 1.5 mg/0.5 mL pen injector 1.5 mg subcut TU
--- NOTE | 2023-05-14 13:55 | PHA.MEDREC ---
Pharmacy Consult ? Medication Reconciliation Pharmacy has completed the medication reconciliation. Patient confirmed medications. Patient state that he does not want to take metformin anymore, last took it last night. Reported he has not take latuda 60 mg for months because he does not like the way it make him feel therefore I left it off his home medication list. Urszula Schwartz, PharmD
[2023-05-14] MEDS: hydroCHLOROthiazide 25 MG TABLET PO (14:17)
[2023-05-14] MEDS: amLODIPine Besylate 5 MG TABLET PO (14:18)
--- NOTE | 2023-05-14 14:45 | PM.IMHP ---
History of Present Illness Date of Service: 05/14/23 Attending physician on admission: Ole Campbell Chief Complaint: Intractable nausea and vomiting Pt is a 32-year-old male with a PMH significant for?HTN, non-insulin dependent diabetes type 2, and schizophrenia who presents to the ED with intractable nausea and vomiting since this morning. Patient states that he has been ?slacking? with his diabetic medication since . Has not been adhering to a diabetic diet. Stopped taking metformin over 8 months ago since it made him nauseous and upset to her stomach. Saw his bilingual elementary school teacher last week who increased his weekly Trulicity from 0.75 mg to 1.5 mg, and restarted him on 500 mg b.i.d. of metformin. Patient reports he restarted metformin 2 days ago but has only been taking 1 pill a day instead of 2. Patient states he woke up this morning with a stomachache at 03:00. Went back to sleep and awoke at 05:30 with some nausea. Went to go to work and then started vomiting. States has had uncontrollable nausea and vomiting since then. Has been unable to keep any food or drink down, including even sips of water. Has had subjective fever and chills, as well as central abdominal pain. Reports experienced similar episodes in the past when taking metformin, but those were short-lived and patient has felt better after vomiting. Of note, patient states that he was supposed to attend a diabetic and diabetic diet education session this afternoon the had to miss it since presenting to the ED. Denies chest pain/pressure, palpitations. No shortness of breath. In the ED pt was tachycardic to 103, hypertensive up to 159/102, satting at 97% on RA. Labs were significant for leukocytosis of 14.5 (chronically elevated), VB pH 7.56, sodium 133, initial glucose 421, beta hydroxybutyrate 2.05. UA with glucose >1000, ketones >160, and negative for UTI. EKG demonstrated normal sinus rhythm without evidence of ST elevations or depressions. Pt was treated with IVF, ondansetron, metoclopramide, insulin 10 units, and home amlodipine and hydrochlorothiazide. Pt will be admitted to the hospital under observation for treatment and further evaluation of intractable nausea and vomiting and hyperglycemia. Review of Systems Review of Systems: Nausea, vomiting Central abdominal pain Fever, chills Denies chest pain/pressure, palpitations No headache [facility] Medical History (Updated 05/14/23 @ 16:03 by KACEY Leal) Pre-op evaluation Bipolar II disorder Schizophrenia Morbid obesity with BMI of 70 and over, adult Obesity Hyperglycemia due to type 2 diabetes mellitus Anxiety Depression HTN (hypertension) Family History Mother Diabetes Father Dialysis patient Hypertension Diabetes Sister Obesity Sister Obesity Sister No problems noted. Brother Diabetes Brother No problems noted. Brother No problems noted. Surgical History History of placement of ear tubes Hx of tonsillectomy Social History Household Members: Other Household Members Other:: ROOMATE Housing: Apartment Do you presently have visiting nurse or other home services: No Alcohol intake: current Alcohol intake frequency: a few times a month Alcohol type: hard liquor Patient Tobacco Use Status: Never used Tobacco Tobacco use type: Cigarette Cigarettes Per Day: 2 e-Cigarette/Vaping Use: Former Use Second Hand Smoke Exposure: No Substance Use Type: Marijuana service: No Current occupational status: employed Meds Allergies Allergy/AdvReac Type Severity Reaction Status Date / Time Sulfa (Sulfonamide AdvReac Mild BURNING EAR Verified 05/14/23 09:44 Antibiotics) [SULFA (SULFONAMIDE ANTIBIOTICS)] Apples Allergy Unknown Itching Uncoded 02/17/23 13:12 Active Medications: Current Medications Amlodipine Besylate (Amlodipine Besylate 5 Mg Tablet) 5 mg PO DAILY [facility]; Protocol Last Admin: 05/14/23 14:18 Dose: 5 mg Hydrochlorothiazide (Hydrochlorothiazide 25 Mg Tablet) 25 mg PO DAILY [facility]; Protocol Last Admin: 05/14/23 14:17 Dose: 25 mg Metformin HCl (Metformin Hcl Er 500 Mg Tab.Er.24h) 500 mg PO BID [facility] Home Medications Medication Instructions Recorded Confirmed Last Taken Type dulaglutide 1.5 mg/0.5 mL 1.5 mg subcut TU 05/14/23 05/14/23 05/12/22 History subcutaneous pen injector (Trulicity) hydrochlorothiazide 25 mg tablet 25 mg PO DAILY 05/14/23 05/14/23 05/13/22 History metformin 500 mg tablet,extended 500 mg PO BID 05/14/23 05/14/23 05/13/22 History release 24 hr Physical Exam Vital Signs and Narrative: Vital Signs: Last Vital Signs Temp 98.8 F 05/14/23 09:41 Pulse 103 H 05/14/23 13:45 Resp 14 05/14/23 13:45 BP 159/102 H 05/14/23 13:45 Pulse Ox 97 05/14/23 13:45 O2 Del Method Room Air 05/14/23 13:45 BMI result Body Mass Index 67.8 Constitutional: Alert, in no acute distress. Mental Status: Oriented to person, place and time. Eyes: Pupils are equal, round, and reactive to light. Ear, Nose, and Throat: Oropharynx clear, mucous membranes moist. Ears and nose without deformities. Trachea midline. Respiratory: Clear to auscultation bilaterally. No wheezing, rales, or rhonchi. Cardiovascular: S1, S2, tachy. No murmurs, rubs, or gallops. Gastrointestinal: Abdomen soft, non-tender, obese. Normal bowel sounds. Neurologic: Cranial nerves II-XII are grossly intact bilaterally. No focal neurological deficits. Moves all extremities spontaneously. Skin: Warm, dry. Musculoskeletal: No cyanosis or clubbing. Extremities: No edema. Psychiatric: Normal mood and affect. Results Labs 05/14/23 09:51 05/14/23 12:27 Labs: Laboratory Results - last 24 hr 05/14/23 05/14/23 05/14/23 09:31 09:51 09:53 MCV 80.2 MCH 27.4 MCHC 34.2 RDW 13.2 Plt Count 265 MPV 10.3 Immature Gran % (Auto) 0.5 H Neut % (Auto) 82.1 H Lymph % (Auto) 12.7 L [place] % (Auto) 4.5 Eos % (Auto) 0.1 Baso % (Auto) 0.1 Lymph # (Auto) 1.8 [place] # (Auto) 0.7 Eos # (Auto) 0.0 Baso # (Auto) 0.0 Abs Immat Gran (auto) 0.07 H Absolute Neuts (auto) 11.9 H Absolute Nucleated RBC 0.000 Nucleated RBC % (auto) 0.0 PT 12.0 INR 1.0 APTT 28.1 VBG pH 7.56 H VBG pCO2 23 VBG pO2 142 VBG HCO3 20 L VBG O2 Saturation 100.0 VBG Base Excess 1.0 Anion Gap 19 Estim Creat Clear Calc 183.9 Estimated GFR > 60 Random Glucose 421 H* Calcium 9.8 D Magnesium 1.7 Total Bilirubin 0.5 AST 19 ALT 28 Alkaline Phosphatase 90 Ammonia 38 Total Protein 8.4 H Albumin 4.2 Beta-Hydroxybutyrate 2.05 H Urine Color Yellow Urine Appearance Clear Urine pH 5.5 Ur Specific [place] >= 1.030 H Urine Protein 100 (2+) H Urine Glucose (UA) >=1000 H Urine Ketones >=160 Urine Blood Negative Urine Nitrite Negative Ur Leukocyte Esterase Negative Urine RBC 0-2 Urine WBC 0-5 Ur Squamous Epith Cells 3-5 Urine Bacteria Trace Hyaline Casts 0-2 Influenza Type A (PCR) NEGATIVE Influenza Type B (PCR) NEGATIVE RSV RNA Qual (PCR) NEGATIVE SARS-CoV-2 RNA (RT-PCR) NEGATIVE 05/14/23 12:27 MCV MCH MCHC RDW Plt Count MPV Immature Gran % (Auto) Neut % (Auto) Lymph % (Auto) [place] % (Auto) Eos % (Auto) Baso % (Auto) Lymph # (Auto) [place] # (Auto) Eos # (Auto) Baso # (Auto) Abs Immat Gran (auto) Absolute Neuts (auto) Absolute Nucleated RBC Nucleated RBC % (auto) PT INR APTT VBG pH VBG pCO2 VBG pO2 VBG HCO3 VBG O2 Saturation VBG Base Excess Anion Gap 15 Estim Creat Clear Calc 209.9 Estimated GFR > 60 Random Glucose 363 H* Calcium 9.0 D Magnesium Total Bilirubin AST ALT Alkaline Phosphatase Ammonia Total Protein Albumin Beta-Hydroxybutyrate Urine Color Urine Appearance Urine pH Ur Specific [place] Urine Protein Urine Glucose (UA) Urine Ketones Urine Blood Urine Nitrite Ur Leukocyte Esterase Urine RBC Urine WBC Ur Squamous Epith Cells Urine Bacteria Hyaline Casts Influenza Type A (PCR) Influenza Type B (PCR) RSV RNA Qual (PCR) SARS-CoV-2 RNA (RT-PCR) Assessment and Plan (1) Acute hyperglycemia: Status: Acute (2) Intractable nausea and vomiting: Status: Acute Plan Pt is a 32-year-old male with a PMH significant for?HTN, non-insulin dependent diabetes type 2, and schizophrenia who presents to the ED with intractable nausea and vomiting since this morning. Pt will be admitted to the hospital under observation for treatment and further evaluation of intractable nausea and vomiting and hyperglycemia. Hyperglycemia/non insulin-dependent diabetes type 2 Random glucose 421 at time of presentation; elevated beta hydroxybutyrate; UA positive for ketones and glucose Patient has been noncompliant with home diabetic medication and diabetic diet Patient given IVF and 10 units insulin in ED Will place on lactated Ringer's 125 ml/hr Will place on sliding scale insulin, Lantus 20 units daily Diabetic diet Check A1c Intractable nausea and vomiting Likely secondary to restarting metformin 2 days ago Patient given Zofran, Reglan in ED Continue Reglan HTN Continue amlodipine, hydrochlorothiazide Obesity class 3 Weight loss encouraged Full Code Attending:?Dr. Campbell DVT Prophylaxis: Lovenox Patient will be admitted to the hospital under observation for treatment and further evaluation of intractable nausea and vomiting along with hyperglycemia. Patient will be treated with antiemetics, IV fluid, and close monitoring of blood glucose levels. Quality Stroke Does the patient have a stroke diagnosis?: No VTE Prior VTE?: No VTE Risk Level:: Medical - moderate - high VTE Device Contraindication: Treatment Not Indicated VTE Drug Contraindication: N/A - Med Ordered
[2023-05-15 03:36] VITALS: BP 148/91; PULSE 99; RESP 18; TEMP 36.3; O2SAT 95
[2023-05-15 07:38] VITALS: BP 138/84; PULSE 93; RESP 20; TEMP 36.6; O2SAT 93
--- NOTE | 2023-05-15 10:55 | MHC.CLN ---
NUTRITION CONSULT FOR DIABETES EDUCATION. PATIENT RECEPTIVE TO DISCUSSION. REPORTS THAT METFORMIN CAUSES GI SYMPTOMS. IS FOLLOW BY OB GYN PHYSICIAN ASSISTANT, BUT MISSES APPOINTMENTS. REPORTS THAT IS PURSUING WEIGHT LOSS SURGERY AT [facility] [place]. ON PROGRAM X 3 MONTHS A WITH NO WEIGHT LOSS. 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 DOES NOT COOK MUCH AT HOME. EATS LARGE AMOUNTS AND LIKES TO SNACK. OFFERED BOOKLET ON DIABETES MEAL PLANNING AND PATIENT DECLINED STATING THAT HE HAD THE SAME AT HOME. ENCOURAGED PATIENT TO KEEP MEDICAL APPOINTMENTS, ESPECIALLY WITH OB GYN PHYSICIAN ASSISTANT FOR OUTPATIENT DIABETES EDUCATION.
--- NOTE | 2023-05-15 11:58 | PM.DS ---
DS: Providers Provider Date of Service: 05/15/23 Date of admission: 05/14/23 15:18 Date of discharge: 05/15/23 Primary care physician: Nader Cortes III, MD Attending physician on discharge: Ole Campbell Discharging clinician: Emily Martinez DS: Diagnosis Discharge Diagnosis (1) Acute hyperglycemia: Status: Acute (2) Intractable nausea and vomiting: Status: Acute DS: Summary Hospital Course Hospital Course: From H&P on the day of admission Pt is a 32-year-old male with a PMH significant for?HTN, non-insulin dependent diabetes type 2, and schizophrenia who presents to the ED with intractable nausea and vomiting since this morning. Patient states that he has been ?slacking? with his diabetic medication since . Has not been adhering to a diabetic diet. Stopped taking metformin over 8 months ago since it made him nauseous and upset to her stomach. Saw his waiter/waitress first class last week who increased his weekly Trulicity from 0.75 mg to 1.5 mg, and restarted him on 500 mg b.i.d. of metformin. Patient reports he restarted metformin 2 days ago but has only been taking 1 pill a day instead of 2. Patient states he woke up this morning with a stomachache at 03:00. Went back to sleep and awoke at 05:30 with some nausea. Went to go to work and then started vomiting. States has had uncontrollable nausea and vomiting since then. Has been unable to keep any food or drink down, including even sips of water. Has had subjective fever and chills, as well as central abdominal pain. Reports experienced similar episodes in the past when taking metformin, but those were short-lived and patient has felt better after vomiting. Of note, patient states that he was supposed to attend a diabetic and diabetic diet education session this afternoon the had to miss it since presenting to the ED. Denies chest pain/pressure, palpitations. No shortness of breath. In the ED pt was tachycardic to 103, hypertensive up to 159/102, satting at 97% on RA. Labs were significant for leukocytosis of 14.5 (chronically elevated), VB pH 7.56, sodium 133, initial glucose 421, beta hydroxybutyrate 2.05. UA with glucose >1000, ketones >160, and negative for UTI. EKG demonstrated normal sinus rhythm without evidence of ST elevations or depressions. Pt was treated with IVF, ondansetron, metoclopramide, insulin 10 units, and home amlodipine and hydrochlorothiazide. Pt will be admitted to the hospital under observation for treatment and further evaluation of intractable nausea and vomiting and hyperglycemia. intractable nausea and vomiting. Likely secondary to combination of resuming metformin and hyperglycemia. Resolved, tolerating diabetic diet at this time. insulin dependent type 2 diabetes with hyperglycemia. patient has been noncompliant with metformin has a cause GI upset. He has also been noncompliant with his exercise and diabetic diet. He was recently resumed on metformin. Hba1c was 9.5. He will be discharged home to resume his home dose of Trulicity and resume using insulin sliding scale. He has a follow-up appointment scheduled with his waiter/waitress first class on May 19. He is encouraged to resume following a diabetic diet Time Attestation Discharge coordination time: Greater than 30 minutes Quality: Safe Use of Opioids Does Pt have an Active Cancer Diagnosis on the Problem List?: No Quality: Stroke Does the patient have a stroke diagnosis?: No Physical Exam Vital Signs: Vital Signs: Last Vital Signs Temp 97.8 F 05/15/23 07:38 Pulse 93 05/15/23 07:38 Resp 20 05/15/23 07:38 BP 138/84 05/15/23 07:38 Pulse Ox 93 05/15/23 07:38 O2 Del Method Room Air 05/15/23 07:38 BMI result Body Mass Index 67.8 Const: General: cooperative, comfortable, no acute distress, alert and awake Nutritional Appearance: obese Orientation/consciousness: patient oriented x3 Resp: Effort & Inspection: normal respiratory effort, able to speak in complete sentences, no respiratory distress and no use of accessory muscles Cardio: Rate: regular rate GI: Inspection: No distended Palpation (GI): not soft and nontender Neuro: General: patient oriented x3, moves all extremities and CN's II-XI intact bilaterally Extrem: General: Yes no pedal edema Psych: Other: appropriate affect DS: Data Data Completed and Pending Labs on day of discharge: Laboratory Results - last 24 hr 05/14/23 05/14/23 05/14/23 09:51 12:27 16:23 Hold Purple Top Sodium 138 Potassium 4.2 Chloride 102 Carbon Dioxide 25 Anion Gap 15 BUN 11 Creatinine 0.78 Estim Creat Clear Calc 209.9 Estimated GFR > 60 POC Glucose 294 H Random Glucose 363 H* Estimat Average Glucose 226 Hemoglobin A1c % 9.5 H Calcium 9.0 D 05/14/23 05/14/23 05/15/23 17:52 20:14 06:34 Hold Purple Top SEE NOTE Sodium 136 Potassium 3.4 Chloride 99 Carbon Dioxide 27 Anion Gap 13 BUN 9 Creatinine 0.69 Estim Creat Clear Calc 237.3 Estimated GFR > 60 POC Glucose 324 H 310 H Random Glucose 251 H Estimat Average Glucose Hemoglobin A1c % Calcium 8.9 05/15/23 05/15/23 07:36 10:50 Hold Purple Top Sodium Potassium Chloride Carbon Dioxide Anion Gap BUN Creatinine Estim Creat Clear Calc Estimated GFR POC Glucose 251 H 318 H Random Glucose Estimat Average Glucose Hemoglobin A1c % Calcium Discharge Plan Discharge Patient Disposition: Home, Self-Care Discharge Diagnosis: intractable nausea and vomiting type 2 diabetes with hyperglycemia Referrals: Nader Cortes III, MD [Primary Care Provider] - 1 Week Discharge Medications: New insulin lispro [Humalog KwikPen Insulin] 100 unit/mL insulin pen 1 sliding scale dose SUBCUT QIDACHS MDD 30U Qty: 15 0RF Rx Instructions: Blood Sugar: <150 - 0 units 151-200 - 2 units 201-250 - 4 units 251-300 - 6 units 301-350 - 8 units >350 - 10 units (DME) pen needle, diabetic 32 gauge x 1/4 needle Qty: 100 0RF Rx Instructions: Use four times a day or as directed. Continued amlodipine 5 mg Tablet 5 mg PO DAILY Qty: 30 0RF Protocol: Hold for SBP< HOLD for SBP < : 90 hydrochlorothiazide 25 mg tablet 25 mg PO DAILY Trulicity 1.5 mg/0.5 mL pen injector 1.5 mg subcut TU Discontinued metformin 500 mg tablet extended release 24 hr 500 mg PO BID No Action (DME) FreeStyle Lite Strips Strip Qty: 100 0RF Rx Instructions: Test four times a day or as directed. (DME) blood-glucose meter [FreeStyle Lite Meter] Kit Qty: 1 0RF Rx Instructions: As Directed (DME) pen needle, diabetic 32 gauge x 1/4 needle Qty: 100 0RF Rx Instructions: Use four times a day or as directed. (DME) lancets [FreeStyle Lancets] 28 gauge misc Qty: 100 0RF Rx Instructions: Test four times a day or as directed. Discharge Orders: Discharge Order (Routine); Ordered 05/15/23 Ordered By: Emily Martinez Activity on Discharge: As tolerated Stand Alone Forms: Patient Portal Discharge page Care Plan Goals: see below Health Concerns: nausea and vomiting hyperglycemia Plan of Treatment: resume following a diabetic diet check your sugars before meals and at bedtime resume using insulin sliding scale until your follow up appointment with endocrinology on 05/19 stop taking metformin Assessment: see discharge summary Patient Instructions: Diabetes and Nutrition (GEN)
--- NOTE | 2023-05-15 12:18 | MHC.CM.PN ---
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
--- NOTE | 2023-05-15 12:22 | MHC.CM.PN ---
pt to dc home with resumption of preadmisson services self arranged transport home
== END 2023-05-15 13:06 | disposition home or self-care (01) ==
LOC: HO.ED 14:41 → HO.EDOVER 15:27 → HO.S3 16:11
PROVIDERS: Admitting Provider Student in an Organized Health Care Education/Training Program; Emergency Provider Student in an Organized Health Care Education/Training Program; PCP Internal Medicine; Visit Provider Physician Assistant Medical
DX: E11.65 Type 2 diabetes mellitus with hyperglycemia (principal); R11.2 Nausea with vomiting, unspecified; R00.0 Tachycardia, unspecified; D72.829 Elevated white blood cell count, unspecified; I10 Essential (primary) hypertension; R10.9 Unspecified abdominal pain; F20.9 Schizophrenia, unspecified; E66.01 Morbid (severe) obesity due to excess calories; Z68.44 Body mass index [BMI] 60.0-69.9, adult; Z20.822 Contact with and (suspected) exposure to COVID-19; Z20.828 Contact with and (suspected) exposure to other viral communicable diseases
CPT/HCPCS: 0241U; 36415; 80048; 80053; 81001; 82010; 82140; 82803; 82947; 83036; 83735; 84484; 85025; 85610; 85730; 93005; 96361; 96372; 96374; 96375; 96376; 99221; 99285; J1650; J2405; J2765; J7120

== ENCOUNTER → 2023-05-14 09:21 | Outpatient (BNV) | payer OTHER, SELFPAY | PROVIDERS: Emergency Provider Student in an Organized Health Care Education/Training Program; PCP Internal Medicine; Visit Provider Internal Medicine Cardiovascular Disease | DX: I10 Essential (primary) hypertension (principal) | CPT/HCPCS: 93010 ==

== ENCOUNTER → 2023-05-14 15:18 | Outpatient (BNV) | payer OTHER, SELFPAY | PROVIDERS: Admitting Provider Student in an Organized Health Care Education/Training Program; Emergency Provider Student in an Organized Health Care Education/Training Program; PCP Internal Medicine; Visit Provider Student in an Organized Health Care Education/Training Program | DX: E11.65 Type 2 diabetes mellitus with hyperglycemia (principal); R11.2 Nausea with vomiting, unspecified; Z91.118 Patient's noncompliance with dietary regimen for other reason | CPT/HCPCS: 99222; 99239 ==

== ENCOUNTER 2024-04-20 16:01 | Emergency (ER) | payer OTHER, SELFPAY ==
--- NOTE | ~2024-04-20 | US_ITS ---
EXAMINATION: US ABDOMEN LIMITED CLINICAL INFORMATION: Right upper quadrant pain. COMPARISON: None available. TECHNIQUE: Real-time imaging of the right upper quadrant abdominal viscera. FINDINGS: PANCREAS: The visualized portions of the pancreas are unremarkable but a large portion of the gland is obscured by bowel gas. LIVER: The liver is enlarged measuring almost 20 cm in length with increased echogenicity consistent with hepatic steatosis. The liver contour is normal. No focal hepatic lesion. There is no intrahepatic biliary duct dilatation seen. GALLBLADDER: The gallbladder is physiologically distended without evidence of stones, sludge, polyps, wall thickening or pericholecystic fluid. COMMON BILE DUCT: Normal in caliber measuring 0.3 cm in diameter. RIGHT KIDNEY: No hydronephrosis. No renal calculi or focal parenchymal lesions. The kidney measures 12.8 cm in maximum dimension. FREE FLUID: None. US/US abdomen limited IMPRESSION: Enlarged fatty liver. Findings Electronically signed by: Srinath Gtz MD 04/20/2024 11:02 PM RAJAT
[2024-04-20 16:25] VITALS: BP 147/90; PULSE 94; RESP 18; TEMP 36.7; O2SAT 96; BMI 63.0
--- NOTE | 2024-04-20 16:28 | ED.NAVMDI ---
HPI - Nausea/Vomiting/Diarrhea General Chief complaint: Nausea/Vomiting/Diarrhea Stated complaint: HBS/Vomiting Time Seen by Provider: 04/20/24 21:33 Source: patient and old records reviewed Mode of arrival: ambulatory Limitations: no limitations History of Present Illness ED Provider: BRUNILDA MAYBERRY Narrative: 33 yo male with PMH of obesity, bipolar, schizophrenia, depression, DM here with c/o developing burning sharp epigastric pain since Thursday no fevers, he denies sick contacts, travel, food exposures. He tried to eat chicken tenders and mac and cheese today and threw up. He also notes in the AM he has burning and throws up. He was worried today and came because his sugar was 275 and he couldn't go to work. MD elicited complaint: nausea, vomiting and abdominal pain Onset (ago): day(s) (3) Description of vomiting: food contents and watery Description of diarrhea: watery Associated nausea: Yes Associated abdominal pain: Yes Location of pain: epigastric Pain consistency: intermittent Severity: moderate Quality: other (burning) Exacerbating factors: eating Relieving factors: none Associated symptoms: loss of appetite, malaise and nausea/vomiting Related Data Home Medications ?Medication ?Instructions ?Recorded ?Confirmed dulaglutide 1.5 mg/0.5 mL 1.5 mg subcut TU 05/14/23 05/14/23 subcutaneous pen injector ([facility]) hydrochlorothiazide 25 mg tablet 25 mg PO DAILY 05/14/23 05/14/23 Previous Rx's ?Medication ?Instructions ?Recorded amlodipine 5 mg tablet 5 mg PO DAILY #30 tabs 04/29/22 blood sugar diagnostic (FreeStyle #100 ea 04/29/22 Lite Strips) blood-glucose meter (FreeStyle #1 ea 04/29/22 Lite Meter kit) lancets 28 gauge (FreeStyle #100 ea 04/29/22 Lancets) pen needle, diabetic 32 gauge x #100 ea 04/29/2205/14 insulin lispro 100 unit/mL 1 sliding scale dose subcut 05/15/23 subcutaneous pen (Humalog Mak BORGESDACHS #15 mL (U-100) Insulin) pen needle, diabetic 32 gauge x #100 ea 05/15/2305/14 omeprazole 40 mg capsule,delayed 40 mg PO DAILY #14 caps 12/11/24 release ondansetron 4 mg disintegrating 4 mg PO Q8H PRN nausea and 04/20/24 tablet vomiting #20 tabs Allergies Allergy/AdvReac Type Severity Reaction Status Date / Time metformin Allergy Nausea and Verified 04/20/24 16:27 Vomiting Sulfa (Sulfonamide AdvReac Mild BURNING EAR Verified 04/20/24 16:27 Antibiotics) [SULFA (SULFONAMIDE ANTIBIOTICS)] Apples Allergy Unknown Itching Uncoded 04/20/24 16:27 Review of Systems Review of Systems: Constitutional : No Weight loss, No Fever, No Chills ENT/Mouth : No sore throat, No Rhinorrhea Eyes: No Swelling, No Redness Cardiovascular : No Chest Pain, No SOB, NoEdema Respiratory : No Cough, No Sputum, No Wheezing Gastrointestinal : Positive Nausea, Positive Vomiting, positive Diarrhea, positive abdominal Pain, No Hematochezia, No Melena Genitourinary : No Dysuria, No Urinary Frequency, No Hematuria, No Urgency Musculoskeletal : No joint pain, No Myalgias, No Joint Swelling Skin : No Skin Lesions, No rash Neuro : No Weakness, No Numbness, No Dizziness, No Headache All other systems reviewed and are negative. Gastrointestinal: Gastrointestinal: Reports nausea PMFSH Past Medical History Attestation statement: The following information was validated with the patient. Source: old records reviewed Medical History Pre-op evaluation Bipolar II disorder Schizophrenia Morbid obesity with BMI of 70 and over, adult Obesity Hyperglycemia due to type 2 diabetes mellitus Anxiety Depression HTN (hypertension) Surgical History History of placement of ear tubes Hx of tonsillectomy Family History Family History Mother Diabetes Father Dialysis patient Hypertension Diabetes Sister Obesity Sister Obesity Sister No problems noted. Brother Diabetes Brother No problems noted. Brother No problems noted. Social History Social History Household Members: None Household Members Other:: ROOMATE Housing: Apartment Do you presently have visiting nurse or other home services: Yes (home health aide) Alcohol intake: current Alcohol intake frequency: does not drink Alcohol type: hard liquor Patient Tobacco Use Status: Never used Tobacco Tobacco use type: Cigarette Cigarettes Per Day: 2 Smoked in Last 30 Days: No e-Cigarette/Vaping Use: Former Use Second Hand Smoke Exposure: No Use of substances other than those prescribed or required for medical reasons: No Substance Use Type: Marijuana Advance Directives: Yes Advance Directives on File: Yes Advance Directives Date on File: 05/18/23 Do you have a plan to hurt others: No Plan service: No Current occupational status: employed Physical Exam Vital Signs: Vital Signs: Last Vital Signs Temp 97.4 F 04/20/24 21:40 Pulse 86 04/20/24 21:40 Resp 18 04/20/24 21:40 BP 140/87 H 04/20/24 21:40 Pulse Ox 94 04/20/24 21:40 O2 Del Method Room Air 04/20/24 21:40 BMI result Body Mass Index 63.0 Appearance: Alert. Oriented X3. No acute distress. Eyes: Pupils equal, round and reactive to light. ENT: Pharynx normal. Neck: Normal inspection. Neck supple. CVS: Normal heart rate and rhythm. Pulses normal. Respiratory: No respiratory distress. Breath sounds normal. Abdomen: Soft and nontender. he has no pain now Skin: Skin warm and dry. Normal skin color. Normal skin turgor. Extremities: No lower extremity edema. No calf ttp Neuro: Oriented X 3. No motor deficit. No sensory deficit. Course Course Course Narrative: This is an RME: Additional HPI, ROS, PE not included below will be deferred to primary provider. RME assessment and note performed by: Sveta Brush PA-C This is a 33-year-old male, with a past medical history of diabetes, who presents emergency department with complaints of nausea, vomiting, and diarrhea since Thursday. Patient reports some epigastric sharp pain. Obese abdomen however states pain in the epigastrium. No right upper quadrant pain. Vital signs within normal limits. He is speaking in full sentences under no acute distress. Plan: Labs, UA, Zofran ODT, POC, further ER evaluation needed. Medications Administered Discontinued Medications Generic Name Dose Route Start Last Admin Trade Name Freq PRN Reason Stop Dose Admin Al Hydroxide/Mg Hydroxide 15 ml 04/20/24 21:38 04/20/24 22:03 Magnesium Hydrox/Alum Hydrox 30 Ml Oral.Susp PO 04/20/24 21:39 15 ml ONCE ONE Administration Famotidine 20 mg 04/20/24 21:38 04/20/24 22:04 Famotidine 20 Mg Tablet PO 04/20/24 21:39 20 mg ONCE ONE Administration Lidocaine HCl 15 ml 04/20/24 21:38 04/20/24 22:03 Lidocaine Hcl Viscous 2 % 15 Ml Solution MUCOUS MEM 04/20/24 21:39 15 ml ONCE ONE Administration Ondansetron HCl 4 mg 04/20/24 16:28 04/20/24 16:30 Ondansetron Odt 4 Mg Tab.Rapdis TRANSLINGU 04/20/24 16:29 4 mg ONCE ONE Administration Medical Decision Making Medical Decision Making MDM Narrative: 33 yo male with PMH of obesity, bipolar, schizophrenia, depression, DM here with c/o upper abdominal pain and burning with n/v/d he has no risk factors - will need labs, and US for biliary colic his story seems most consistent with gastritis or GERD given symptoms with food and AM burning pain with n/v. He has benign abdomen and no pain now. Differential Diagnosis Differential Diagnoses: The differential diagnosis associated with the presentation includes GERD, gastritis, biliary colic, low susp for pancreatitis Admission/Observation Consideration of admission/observation: Escalation of care including admission/observation considered feels better tolerating PO Lab Data [facility] Lab Attestation statement: I reviewed the patient's lab results. no DKA 04/20/24 16:54 04/20/24 16:55 Labs: Lab Results 04/20/24 04/20/24 04/20/24 Range/Units 16:54 16:55 16:58 WBC 12.8 H (4.8-10.8) X10*3/uL RBC 5.26 (4.60-5.80) X10*6/uL Hgb 14.7 (14.0-18.0) g/dl Hct 42.3 (42.0-52.0) % MCV 80.4 (80.0-98.0) fL MCH 27.9 (27.0-33.0) pg MCHC 34.8 (31.0-36.0) g/dl RDW 13.3 (11.0-16.0) % Plt Count 257 (160-400) X10*3/uL MPV 9.5 (9.4-12.4) fL Immature Gran % (Auto) 0.4 (0.0-0.4) % Neut % (Auto) 64.0 (45-73) % Lymph % (Auto) 28.7 (20-40) % Clarke % (Auto) 6.3 (2-11) % Eos % (Auto) 0.4 (0-4) % Baso % (Auto) 0.2 (0-2) % Lymph # (Auto) 3.7 (1.2-4.9) X10*3/uL Clarke # (Auto) 0.8 (0.1-1.2) X10*3/uL Eos # (Auto) 0.1 (0.0-0.4) X10*3/uL Baso # (Auto) 0.0 (0.0-0.2) X10*3/uL Abs Immat Gran (auto) 0.05 H (0.00-0.03) X10*3/uL Absolute Neuts (auto) 8.2 (2.0-8.3) x10*3/uL Absolute Nucleated RBC 0.000 (0.0-0.012) X10*3/uL Nucleated RBC % (auto) 0.0 (0.0-0.2) /100WBC Sodium 140 (135-145) mmol/L Potassium 3.6 (3.3-5.1) mmol/L Chloride 104 (96-108) mmol/L Carbon Dioxide 28 (22-29) mmol/L Anion Gap 12 (12-20) BUN 11 (9-16) mg/dL Creatinine 0.77 (0.5-1.4) mg/dL Estim Creat Clear Calc 200.7 Estimated GFR > 60 POC Glucose 158 H (60-115) mg/dL Random Glucose 158 H (60-115) mg/dL Calcium 10.0 D (8.4-10.2) mg/dL Magnesium 2.0 (1.6-2.6) mg/dL Total Bilirubin 0.2 (0.0-1.0) mg/dL Direct Bilirubin < 0.2 (0.0-0.5) mg/dL AST 21 (5-37) U/L ALT 28 (0-40) U/L Alkaline Phosphatase 84 (39-117) U/L Total Protein 7.9 (6.5-8.0) g/dL Albumin 4.0 (3.5-5.0) g/dL Lipase 27 (8-78) U/L Urine Color Urine Appearance Urine pH (5.0-9.0) Ur Specific [place] (1.005-1.025) Urine Protein (Neg-Trace) mg/dL Urine Glucose (UA) (Negative) mg/dL Urine Ketones (Negative) mg/dL Urine Blood (Negative) Urine Nitrite (Negative) Ur Leukocyte Esterase (Negative) Influenza Type A (PCR) NEGATIVE (Negative) Influenza Type B (PCR) NEGATIVE (Negative) RSV RNA Qual (PCR) NEGATIVE (Negative) SARS-CoV-2 RNA (RT-PCR) NEGATIVE (Negative) 04/20/24 Range/Units 22:03 WBC (4.8-10.8) X10*3/uL RBC (4.60-5.80) X10*6/uL Hgb (14.0-18.0) g/dl Hct (42.0-52.0) % MCV (80.0-98.0) fL MCH (27.0-33.0) pg MCHC (31.0-36.0) g/dl RDW (11.0-16.0) % Plt Count (160-400) X10*3/uL MPV (9.4-12.4) fL Immature Gran % (Auto) (0.0-0.4) % Neut % (Auto) (45-73) % Lymph % (Auto) (20-40) % Clarke % (Auto) (2-11) % Eos % (Auto) (0-4) % Baso % (Auto) (0-2) % Lymph # (Auto) (1.2-4.9) X10*3/uL Clarke # (Auto) (0.1-1.2) X10*3/uL Eos # (Auto) (0.0-0.4) X10*3/uL Baso # (Auto) (0.0-0.2) X10*3/uL Abs Immat Gran (auto) (0.00-0.03) X10*3/uL Absolute Neuts (auto) (2.0-8.3) x10*3/uL Absolute Nucleated RBC (0.0-0.012) X10*3/uL Nucleated RBC % (auto) (0.0-0.2) /100WBC Sodium (135-145) mmol/L Potassium (3.3-5.1) mmol/L Chloride (96-108) mmol/L Carbon Dioxide (22-29) mmol/L Anion Gap (12-20) BUN (9-16) mg/dL Creatinine (0.5-1.4) mg/dL Estim Creat Clear Calc Estimated GFR POC Glucose (60-115) mg/dL Random Glucose (60-115) mg/dL Calcium (8.4-10.2) mg/dL Magnesium (1.6-2.6) mg/dL Total Bilirubin (0.0-1.0) mg/dL Direct Bilirubin (0.0-0.5) mg/dL AST (5-37) U/L ALT (0-40) U/L Alkaline Phosphatase (39-117) U/L Total Protein (6.5-8.0) g/dL Albumin (3.5-5.0) g/dL Lipase (8-78) U/L Urine Color Yellow Urine Appearance Clear Urine pH 5.5 (5.0-9.0) Ur Specific [place] >= 1.030 H (1.005-1.025) Urine Protein Trace (Neg-Trace) mg/dL Urine Glucose (UA) Negative (Negative) mg/dL Urine Ketones Negative (Negative) mg/dL Urine Blood Negative (Negative) Urine Nitrite Negative (Negative) Ur Leukocyte Esterase Negative (Negative) Influenza Type A (PCR) (Negative) Influenza Type B (PCR) (Negative) RSV RNA Qual (PCR) (Negative) SARS-CoV-2 RNA (RT-PCR) (Negative) Independent Interpretation I performed an independent interpretation of an: Ultrasound (no stones) Radiology Impression Discussion of test interpretation with radiology: I have reviewed the radiologist's reading. External Record Review External record reviewed: Outpatient record Prescription Management I considered prescription management with: Other Discharge Plan Discharge Clinical Impression: Nausea vomiting and diarrhea Abdominal pain Qualifiers: Abdominal location: epigastric Qualified Code(s): R10.13 - Epigastric pain Patient Disposition: Home, Self-Care Instructions: Acute Nausea and Vomiting (ED), Acute Diarrhea (ED), Acute Abdominal Pain (ED) Additional Instructions: drink plenty of fluids slowly advance foods stay hydrated return for worsening symptoms or concerns. start new medications Ultrasound just shows fatty liver - diet and weight Prescriptions: New ondansetron 4 mg tablet,disintegrating 4 mg PO Q8H PRN (Reason: nausea and vomiting) Qty: 20 0RF omeprazole 40 mg capsule,delayed release(DR/EC) 40 mg PO DAILY Qty: 14 0RF No Action (DME) FreeStyle Lite Strips Strip Qty: 100 0RF Rx Instructions: Test four times a day or as directed. (DME) blood-glucose meter [FreeStyle Lite Meter] Kit Qty: 1 0RF Rx Instructions: As Directed (DME) pen needle, diabetic 32 gauge x 1/4 needle Qty: 100 0RF Rx Instructions: Use four times a day or as directed. (DME) lancets [FreeStyle Lancets] 28 gauge misc Qty: 100 0RF Rx Instructions: Test four times a day or as directed. amlodipine 5 mg Tablet 5 mg PO DAILY Qty: 30 0RF Protocol: Hold for SBP< HOLD for SBP < : 90 hydrochlorothiazide 25 mg tablet 25 mg PO DAILY Trulicity 1.5 mg/0.5 mL pen injector 1.5 mg subcut TU insulin lispro [Humalog KwikPen Insulin] 100 unit/mL insulin pen 1 sliding scale dose SUBCUT QIDACHS MDD 30U Qty: 15 0RF Rx Instructions: Blood Sugar: <150 - 0 units 151-200 - 2 units 201-250 - 4 units 251-300 - 6 units 301-350 - 8 units >350 - 10 units (DME) pen needle, diabetic 32 gauge x 1/4 needle Qty: 100 0RF Rx Instructions: Use four times a day or as directed. Stand Alone Forms: Work/School Release Print Language: Luxembourger
[2024-04-20] MEDS: Ondansetron ODT 4 MG TAB.RAPDIS TRANSLINGU (16:30)
[2024-04-20 17:02] LABS: MANUAL DIFF FLAG NO
[2024-04-20 17:02] LABS: Glucose, Whole Blood 158 mg/dL (60-115)
[2024-04-20 17:06] LABS: Basophils Percent Auto 0.2 % (0-2); Eosinophils Absolute Auto 0.1 X10*3/uL (0.0-0.4); Eosinophils Percent Auto 0.4 % (0-4); Hematocrit 42.3 % (42.0-52.0); Hemoglobin 14.7 g/dl (14.0-18.0); Imm Gran Abs Auto 0.05 X10*3/uL (0.00-0.03); Imm Gran Pct Auto 0.4 % (0.0-0.4); Lymphocytes Absolute Auto 3.7 X10*3/uL (1.2-4.9); Lymphocytes Percent Auto 28.7 % (20-40); Mean Corpuscular HGB Conc 34.8 g/dl (31.0-36.0); Mean Corpuscular Hemoglobin 27.9 pg (27.0-33.0); Mean Corpuscular Volume 80.4 fL (80.0-98.0); Mean Platelet Volume 9.5 fL (9.4-12.4); Monocytes Absolute Auto 0.8 X10*3/uL (0.1-1.2); Monocytes Percent Auto 6.3 % (2-11); Neutrophils Absolute Auto 8.2 x10*3/uL (2.0-8.3); Platelet Count 257 X10*3/uL (160-400); Red Blood Count 5.26 X10*6/uL (4.60-5.80); Red Cell Distribution Width 13.3 % (11.0-16.0); White Blood Count 12.8 X10*3/uL (4.8-10.8)
[2024-04-20 17:21] LABS: Alanine Aminotransferase 28 U/L (0-40); Alkaline Phosphatase 84 U/L (39-117); Anion Gap 12 (12-20); Aspartate Amino Transferase 21 U/L (5-37); Bilirubin Direct < 0.2 mg/dL (0.0-0.5); Bilirubin Total 0.2 mg/dL (0.0-1.0); Blood Urea Nitrogen 11 mg/dL (9-16); Carbon Dioxide 28 mmol/L (22-29); Chloride 104 mmol/L (96-108); Creatinine Clr Calc Pharmacy 200.7; Estimated Glomerular Filt Rate > 60; Glucose Random 158 mg/dL (60-115); Lipase 27 U/L (8-78); Potassium 3.6 mmol/L (3.3-5.1); Sodium 140 mmol/L (135-145); Total Protein 7.9 g/dL (6.5-8.0)
[2024-04-20 17:50] LABS: Influenza A PCR NEGATIVE (Negative); Influenza B PCR NEGATIVE (Negative); Resp Syncy Virus RNA Qual PCR NEGATIVE (Negative); SARS COV2 PCR INHOUSE NEGATIVE (Negative)
[2024-04-20 21:40] VITALS: BP 140/87; PULSE 86; RESP 18; TEMP 36.3; O2SAT 94
[2024-04-20] MEDS: Lidocaine HCl Viscous 2 % 15 ML SOLUTION MUCOUS MEM (22:03)
[2024-04-20] MEDS: Magnesium Hydrox/Alum Hydrox 30 ML ORAL.SUSP 15 ML PO (22:03)
[2024-04-20] MEDS: Famotidine 20 MG TABLET PO (22:04)
[2024-04-20 22:08] LABS: Appearance Urine Clear; Color Urine Yellow; Glucose Urine UA Negative (Negative); Leukocyte Esterase Urine Negative (Negative); Nitrite Urine Negative (Negative); PH 5.5 (5.0-9.0); Specific Gravity - Urine >= 1.030 (1.005-1.025); Urine Blood Negative (Negative); Urine Ketones Negative (Negative); Urine Protein Trace mg/dL (Neg-Trace)
[2024-04-20 23:21] VITALS: BP 140/87; PULSE 86; RESP 18; TEMP 36.3; O2SAT 94
--- OUTSIDE RECORDS SUMMARY | 2024-04-21 03:09 | XMS_ITS | Data Portability ---
Author Organization [employer] [facility] [place] [facility] Address [address] [place] [id number] Care Team Providers Care Cash Management Coordinator Name Role Phone [facility] Primary Care Provider [phone] Assessment Encounter Date Assessment Date Assessment LastModified by Organization Details LastModified Time 05/20/2023 05/20/2023 I provided real -time medical direction via phone for this encounter, and was available for additional phone based assistance as needed. I have reviewed and agree with the Assessment and Plan as documented by the Race Car Mechanic. We discussed the diagnostic uncertainty of home visits and the risk associated with this. In this case the patient and I felt this to be an acceptable and reasonable amount of risk given the benefit of avoiding an ED visit. The patient given the opportunity to ask questions. Advised if develops CP/severe SOB/turning blue/uncontrolle d n/v/d / severe sweats/AMS/ syncope/ repeat BS reading hi/ hi fever to call 911- verbalized understanding of instructions tot he medic [email or web address] Not available 05/20/2023 13:46:13 Plan of Treatment Reminders Order Date Submit Date Provider Last Modified By Organization Details Last Modified Time Details Appointments None recorded. Lab culture, urine 2023 024 BEECH BOTTOM [facility], [facility] [place], [address], 4 09:50:12 urinalysis, dipstick 2023 024 [email or web address] 0 [facility], [address] [place] [address], [phone], 4 12:25:37 glucose, fingerstick , blood 2023 024 [email or web address] 0 [facility], [address] [place] [address], [phone], 4 12:25:33 glucose, fingerstick , blood 2023 024 [email or web address] 0 [facility] [address] [place] [address], [phone], 4 12:25:34 Referral None recorded. Procedures None recorded. Surgeries None recorded. Imaging None recorded. Medication Orders ondansetron 4 mg disintegrat ing tablet 2023 024 [email or web address] 0 Not available 12:25:31 ondansetron 4 mg disintegrat ing tablet 2023 024 [id number], [address] [place], [address], 12:25:33 Patient TargetsNo targets recorded. Patient InstructionsNo instructions recorded. Reason for Referral None Reported. Results Created Date Observation Date Name Description Value Unit Range Abnormal Flag Note LastModifiedBy Organization Detail LastModifiedTime 05/20/1905/20/2023 URINE CULTU RE specimen description URINE Not Available [facility] [address] [place], [address], 05/23/2023 09:50:12 05/20/1905/20/2023 URINE CULTU RE special requests NONE Not Available [facility] [address] [place], [address], 05/23/2023 09:50:12 05/20/1905/23/2023 URINE CULTU RE culture abnormal 10-50 ,000 COL/M L ENTER OCOCC US FAECA LIS This isola te was ident ified using Maldi -TOF syste m These AST resul ts were perfo rmed on the Vitek 2 ID and AST syste m Not Available [facility] [address] [place], [address], 05/23/2023 09:50:12 05/20/19 24 05/23/2023 URINE CULTU RE report status FINAL 2023 Not Available [facility] [address] [place], [address], 05/23/2023 09:50:12 05/20/19 24 05/23/2023 URINE CULTU RE organism ORGAN ISM 10-50 ,000 COL/M L ENTER OCOCC US FAECA LIS This isola te was ident ified using Maldi -TOF syste m These AST resul ts were perfo rmed on the Vitek 2 ID and AST syste m Not Available [facility] [address] [place], [address], 05/23/2023 09:50:12 05/20/19 24 05/23/2023 URINE CULTU RE method METHOD MIN. INHIB. CONC. (MCG/M L) Not Available [facility] [address] [place], [address], 05/23/2023 09:50:12 05/20/19 24 05/23/2023 URINE CULTU RE ampicillin AMPICI LLIN SUSCEP TIBLE susceptib le Not Available [facility] [address] [place], [address], 05/23/2023 09:50:12 05/20/19 24 05/23/2023 URINE CULTU RE ciprofloxaci n CIPROF LOXACI N SUSCEP TIBLE susceptib le Not Available [facility] [address] [place], [address], 05/23/2023 09:50:12 05/20/19 24 05/23/2023 URINE CULTU RE nitrofuranto in NITROF URANTO IN SUSCEP TIBLE susceptib le Not Available [facility] [address] [place], [address], 05/23/2023 09:50:12 05/20/19 24 05/23/2023 URINE CULTU RE levofloxacin LEVOFL OXACIN SUSCEP TIBLE susceptib le Not Available [facility] [address] [place], [address], 05/23/2023 09:50:12 05/20/19 24 05/23/2023 URINE CULTU RE vancomycin VANCOM YCIN SUSCEP TIBLE susceptib le Not Available [facility] [address] [place], [address], 05/23/2023 09:50:12 05/20/19 24 05/23/2023 URINE CULTU RE gentamicin synergy GENTAM ICIN SYNERG Y SUSCEP TIBLE susceptib le Not Available [facility] [address] [place], [address], 05/23/2023 09:50:12 05/20/19 24 05/23/2023 URINE CULTU RE streptomycin synergy STREPT OMYCIN SYNERG Y SUSCEP TIBLE susceptib le Not Available [facility] [address] [place], [address], 05/23/2023 09:50:12 05/20/19 24 05/23/2023 URINE CULTU RE tetracycline TETRAC YCLINE RESIST ANT resistant Not Available [facility] [address], [place], [address], 05/23/2023 09:50:12 05/20/19 24 05/20/2023 gluco se, finge rstic k, blood Blood Glucose: mg/dl 338 Not Available Main - [facility] [address] [place] [address], [address], 05/20/2023 12:20:46 05/20/19 24 05/20/2023 urina lysis , dipst ick Leukocytes neg Not Available Main - [facility] [address] [place] [address], [address], 05/20/2023 12:18:07 05/20/19 24 05/20/2023 urina lysis , dipst ick Nitrite positi ve Not Available [facility] - [facility] [address] [place] [address], [address], 05/20/2023 12:18:07 05/20/19 24 05/20/2023 urina lysis , dipst ick pH 8 Not Available Main - [facility] [address] [place] [address], [address], 05/20/2023 12:18:07 05/20/19 24 05/20/2023 urina lysis , dipst ick Specific [place] 1.010 Not Available Main - [facility] [address] [place] [address], [phone], 05/20/2023 12:18:07 05/20/19 24 05/20/2023 urina lysis , dipst ick Ketone 15(2+) Not Available Main - [facility] [address], [address], 05/20/2023 12:18:07 05/20/19 24 05/20/2023 urina lysis , dipst ick Glucose 5+ Not Available Main - [facility] [address], [address], 05/20/2023 12:18:07 05/20/19 24 05/20/2023 urina lysis , dipst ick Appearance cloudy Not Available Main - [facility] [address] [place] [address], [address], 05/20/2023 12:18:07 05/20/19 24 05/20/2023 urina lysis , dipst ick Color yellow Not Available Main - Ins [address], [place], [address], 05/20/2023 12:18:07 05/20/19 24 05/20/2023 gluco se, finge rstic k, blood Blood Glucose: mg/dl 299 Not Available Main - [facility] [address] [place] [address], [phone], 05/20/2023 11:38:28 Result Notes None recorded. Medical Equipment None Reported. Allergies Allergen ID Allergen Name Allergen Category Reaction Reaction Severity Criticality Documentation Date Start Date Code Code System Note Provider Name and Address Organization Details Recorded Time 4319 Substance with sulfonami de structure and antibacte rial mechanism of action (substanc e) medicatio n Not available Not available Not available 05/20/2023 36082 0252 SNOMED Lilly Mcallister MD [address] [place] [address],[address], [place], [phone], BHAVANA MARTELL 4 11:38:04 Medications Name Sig Start Date Stop Date Status Note LastModified by Organization Details LastModified Time FreeStyle Lancets 28 gauge active Not Available Not Available Not Available amlodipine 5 mg tablet TAKE 1 TABLET BY MOUTH EVERY DAY active Not Available Not Available No t Available ofloxacin 0.3 % ear drops PLEASE SEE ATTACHED FOR DETAILED DIRECTIONS active Not Available Not Available N ot Available metformin 1,000 mg tablet TAKE 1 TABLET BY MOUTH TWICE A DAY WITH MEALS active Not Available Not Available No t Available hydrochlorot hiazide 25 mg tablet TAKE 1 TABLET BY MOUTH EVERY DAY active Not Available Not Available No t Available ondansetron 4 mg disintegrati ng tablet 1-2 tablets every 6-8 hours as needed for nausea or vomiting active Not Available Not Available No t Available metformin ER 500 mg tablet,exten ded release 24 hr TAKE 1 TABLET BY MOUTH TWICE A DAY BEFORE MEALS active Not Available Not Available No t Available Novolog FlexPen U-100 Insulin aspart 100 unit/mL (3 mL) subcutaneous PLEASE SEE ATTACHED FOR DETAILED DIRECTIONS active Not Available Not Available N ot Available escitalopram 5 mg tablet TAKE 1 TABLET BY MOUTH EVERY DAY IN THE MORNING active Not Available Not Available No t Available FreeStyle Lite Strips active Not Available Not Available Not Available Humalog KwikPen (U-100) Insulin 100 unit/mL subcutaneous PLEASE SEE ATTACHED FOR DETAILED DIRECTIONS active Not Available Not Available N ot Available lurasidone 40 mg tablet TAKE 1 TABLET BY MOUTH EVERY EVENING WITH DINNER/ 350 CALORIES OF FOOD active Not Available Not Available No t Available lurasidone 20 mg tablet TAKE 1 TABLET BY MOUTH EVERY EVENING WITH DINNER/ 350 CALORIES OF FOOD active Not Available Not Available No t Available lurasidone 60 mg tablet TAKE 1 TABLET BY MOUTH EVERY EVENING WITH DINNER/ 350 CALORIES OF FOOD active Not Available Not Available No t Available Trulicity 1.5 mg/0.5 mL subcutaneous pen injector INJECT 1.5 MG INTO THE SKIN EVERY 7 DAYS active Not Available Not Available No t Available Trulicity 0.75 mg/0.5 mL subcutaneous pen injector INJECT 0.75 MG INTO THE SKIN EVERY 7 DAYS. active Not Available Not Available No t Available BD Dagmar 2nd Gen Pen Needle 32 gauge x 5/32 USE FOUR TIMES A DAY OR DIRECTED. active Not Available Not Available No t Available Vitals Date Recorded Body temperature Heart rate Oxygen saturation Oxygen saturation in Arterial blood by Pulse oximetry Respiratory rate Systolic blood pressure Diastolic blood pressure Provider Name and Address Organization Details Last Updated DateTime 98.1 [degF] 91 /min 96 % 96 % 14 /min 130 mm[Hg] 80 mm[Hg] Not Available [facility] - production 11:37:46 Date Recorded Body weight Provider Name an d Address Organization Details Last Updated DateTime 05/20/2023 856970.99 g Medina Pickard [address] [place] [address],[address], [place], [address], [facility] [employer] [facility] 05/20/2023 12:19:40 Social History None recorded. Functional Status None recorded. Mental Status None recorded. Family History Nothing Reported. Medical History No medical history recorded. Past Encounters Encounter ID Performer Location Encounter Start Date Encounter Closed Date Diagnosis/Indication Diagnosis SNOMED-CT Code Diagnosis ICD10 Code [id number] Lilly Mcallister MD [facility] - [address] [phone] 05/20/2023 11:37:44 05/21/2023 22:38:17 Hyperglycemia 38587621 R73.9 Urinary symptoms 7448118 08 R39.9 Health Concerns Section Related Observation LastModified by Organization Detai ls LastModified Time None Recorded Concern Status LastModified by Organization Details LastModified Time None Recorded Advance Directives Directive None Recorded Payers Encounter Date Sequence Insurance Name Policy Number Policy Noel Covered Member ID Noel Member ID Guarantor Name 05/20/2023 1 [facility] - DOS ON OR AFTER 2022 - DUAL ELIGIBLE - [facility] [employer] AND ONE [employer] (MEDICARE REPLACEMENT/ADV ANTAGE - HMO) Hilaria Crowley [id number] Hilaria Crowley Notes Date Note Type Note Provider Name and Address Organization Details Recorded Time 05/20/2023 text/html HPI: [facility] CP reporting pt was in the hospital for -5th for hyperglycemia 32 year old male, on the phone also w/ CP, c/o n/v, high sugars, not feeling well Bedtime sugar was 494, ate dinner/took 10 ux Lispro/Humalog, then this morning at 0600- POC was 378, did not eat breakfast and then had some n/v. Able to take b/p meds but continues to not feel well Allergies to Sulfa Antibiotics PCP: Nader Cortes Agreeable to visit. Sravanthi NESBITT SEGMD: signifcant family hx DMPatient related slightly different version of HPI to us:................. .................... .................... .................... .................... .................... .................... .... Race Car Mechanic Note From Mello Villanueva: Encountered patient conscious alert and ambulatory with family present. Patient states he is an insulin dependent diabetic and was recently hospitalized on 05/14/23, where his insulin regiment was changed from a static dose to a sliding scale dose. Patient expresses he was not very well educated on how to take his insulin and was not sure if he was supposed to take it before during or after meals. Patient also expresses he was due for a follow up appointment today via [employer], but slept through his appointment and now has to wait until 06/09/23 for a follow-up. Patient expresses he woke up this morning at 6 AM and felt sick, checked his sugar which was 378 mg/DL and then gave himself 10 units of humalog. Patient also expressed that he had four slices of [employer] at midnight last night, which he feels subsequently caused him to vomit. Patient denies any complaints at this time, expresses he feels better, but requires education as to how to take his insulin, and what foods are appropriate to eat. Skin warm, dry and of appropriate color for ethnicity. Head and neck, free of trauma and edema. Breath sounds present clear and equal bilaterally. Abdomen soft, non-tender and non-distended. Extremities free of trauma, lower extremities exhibit +1 non-pitting edema; patient expresses is baseline. [facility] contacted: orders for urinalysis and urine culture performed. POC bloodwork unsuccessful due to poor vasculature, [facility] notified. 8 mg of ODT Zofran administered. [facility] to write prescription for further Zofran treatment at patient? s pharmacy of choice. Red flags discussed with patient, it was stressed to patient that he follow his sliding scale regimen via the instructions given to him by the hospital. Patient was also further encouraged to make sure he follows up with his process improvement manager on the appointment scheduled for 06/09/23, and before then attempt to schedule an appointment with his primary care physician as well. Patient verbalizes understanding and would like to stay at home at this time. Patient and family both encouraged to seek further medical attention. Should patient begin experiencing chest pain, shortness of breath, changes in vision or uncontrollable vomiting. .................... .................... .................... .................... .................... .................... .................... . Disposition: FulfilledSEGMD: As above. Patient reports his blood sugar was 365 last night before he had 4 slices of pizza, he did not have any insulin and then proceeded to vomit. He denies being nauseated but then states he has not had anything to eat or drink today by midday because he was fearful of vomiting again. He denies polyuria polydipsia although admits to having a dry mouth at night. He denies any visual changes, dizziness or focal weakness. HIs SS shows BS: <150 no insulin/ 150-200: 2 units/ 201-250: 4 units/251-300: 6 u/301- 350: 8 u/351-400: 10 u/401-450: 12 u/ >450 call Lilly Mcallister MD [address] [facility],[address], [place], [address], [facility] 05/21/2023 19:43:50
== END 2024-04-20 23:21 | disposition home or self-care (01) ==
PROVIDERS: Physician Assistant Medical; Emergency Provider Emergency Medicine; PCP Internal Medicine
DX: R10.13 Epigastric pain (principal); R11.2 Nausea with vomiting, unspecified; R19.7 Diarrhea, unspecified; Z03.818 Encounter for observation for suspected exposure to other biological agents ruled out; E11.9 Type 2 diabetes mellitus without complications; I10 Essential (primary) hypertension
CPT/HCPCS: 0241U; 36415; 76705; 80048; 80076; 81003; 82947; 83690; 83735; 85025; 99284

== ENCOUNTER 2024-06-19 20:18 | Inpatient (IN) | payer OTHER, SELFPAY ==
[2024-06-19 20:25] VITALS: BP 149/81; PULSE 110; RESP 18; TEMP 36.8; O2SAT 95; BMI 59.7
--- NOTE | 2024-06-19 20:25 | ED_ITS ---
HPI - Psych General Chief Complaint: Psychiatric Symptoms Stated Complaint: crisis Time Seen by Provider: 06/19/24 21:28 Source: patient Mode of arrival: ambulatory History of Present Illness ED Provider: Dr. Germania Pal HPI Narrative: Patient comes to the emergency room complaining that he has been having more frequent angry outbursts, feeling manic for couple of weeks Related Data Home Medications ?Medication ?Instructions ?Recorded ?Confirmed dulaglutide 1.5 mg/0.5 mL 1.5 mg subcut TU 05/14/23 05/14/23 subcutaneous pen injector (Trulicity) hydrochlorothiazide 25 mg tablet 25 mg PO DAILY 05/14/23 05/14/23 Previous Rx's ?Medication ?Instructions ?Recorded amlodipine 5 mg tablet 5 mg PO DAILY #30 tabs 04/29/22 blood sugar diagnostic (FreeStyle #100 ea 04/29/22 Lite Strips) blood-glucose meter (FreeStyle #1 ea 04/29/22 Lite Meter kit) lancets 28 gauge (FreeStyle #100 ea 04/29/22 Lancets) pen needle, diabetic 32 gauge x #100 ea 04/29/22/ insulin lispro 100 unit/mL 1 sliding scale dose subcut 05/15/23 subcutaneous pen (Humalog KwikPen QIDACHS #15 mL (U-100) Insulin) pen needle, diabetic 32 gauge x #100 ea 05/15/2305/14 omeprazole 40 mg capsule,delayed 40 mg PO DAILY #14 caps 04/20/24 release ondansetron 4 mg disintegrating 4 mg PO Q8H PRN nausea and 04/20/24 tablet vomiting #20 tabs Allergies Allergy/AdvReac Type Severity Reaction Status Date / Time metformin Allergy Nausea and Verified 06/19/24 20:28 Vomiting Sulfa (Sulfonamide AdvReac Mild BURNING EAR Verified 06/19/24 20:28 Antibiotics) [SULFA (SULFONAMIDE ANTIBIOTICS)] Apples Allergy Unknown Itching Uncoded 06/19/24 20:28 [facility] Past Medical History Medical History Pre-op evaluation Bipolar II disorder Schizophrenia Morbid obesity with BMI of 70 and over, adult Obesity Hyperglycemia due to type 2 diabetes mellitus Anxiety Depression HTN (hypertension) Surgical History History of placement of ear tubes Hx of tonsillectomy Family History Family History Mother Diabetes Father Dialysis patient Hypertension Diabetes Sister Obesity Sister Obesity Sister No problems noted. Brother Diabetes Brother No problems noted. Brother No problems noted. Social History Social History Household Members: None Household Members Other:: ROOMATE Housing: Apartment Do you presently have visiting nurse or other home services: Yes (home health aide) Alcohol intake: current Alcohol intake frequency: a few times a month Alcohol type: hard liquor Patient Tobacco Use Status: Never used Tobacco Tobacco use type: Cigarette Cigarettes Per Day: 2 Smoked in Last 30 Days: Yes e-Cigarette/Vaping Use: Former Use Second Hand Smoke Exposure: No Use of substances other than those prescribed or required for medical reasons: Yes Substance Use Type: Marijuana Substance Use Frequency: Daily Advance Directives: Yes Advance Directives on File: Yes Advance Directives Date on File: 05/18/23 service: No Current occupational status: employed Physical Exam 2 Vital Signs: Vital Signs: Last Vital Signs Temp 98.3 F 06/19/24 20:25 Pulse 110 H 06/19/24 20:25 Resp 18 06/19/24 20:25 BP 149/81 H 06/19/24 20:25 Pulse Ox 95 06/19/24 20:25 O2 Del Method Room Air 06/19/24 20:25 BMI result Body Mass Index 59.7 Course Course Course Narrative: This is an RME performed by Suzanne Julian CNP: Additional HPI, ROS, PE not included below will be deferred to primary provider. Patient is a 33-year-old male past medical history of schizophrenia bipolar 2 disorder, hypertension, diabetes, VICKIE presents emergency department for evaluation his sister is present of whom he lives with, she provides majority of history he has been experiencing suicidal ideations over the past 2 weeks, not endorsing any specific plan, she states he has been manic over the past 2 weeks. Has not been on any medications over the past 2 years, had an appointment with psych on restart medications, but evidently has not been consistent with any medications for the past 2 years. Also states blood sugars have been notably elevated not well controlled despite insulin usage, current glucose monitor reading >400, admits to polyuria and polydipsia. Admits that he has been drinking some beer since yesterday, reports last drink pain 1-1.5 hours ago. Plan: Serum labs, toxicology Medications Administered Discontinued Medications Generic Name Dose Route Start Last Admin Trade Name Maddi PRN Reason Stop Dose Admin Sodium Chloride 2,000 mls @ 999 mls/hr 06/19/24 22:27 06/19/24 23:35 Ns IVCONT 06/20/24 00:27 Not Given .Q2H1M ONE Insulin Human Lispro 10 unit 06/20/24 00:07 06/20/24 00:36 Insulin Lispro 100 Unit/Ml 3 Ml Vial SUBCUT 06/20/24 00:08 10 unit ONCE ONE Administration Insulin Human Regular 10 unit 06/19/24 22:27 06/19/24 23:35 Insulin Regular, Human 100 Unit/Ml 10 Ml Vial IVPUSH 06/19/24 22:28 Not Given ONCE ONE Medical Decision Making Medical Decision Making MDM Narrative: My interpretation of labs, Lab Data 06/19/24 20:43 06/19/24 20:43 Labs: Lab Results 06/19/24 06/19/24 06/19/24 Range/Units 20:43 20:46 22:07 WBC 9.9 (4.8-10.8) X10*3/uL RBC 5.51 (4.60-5.80) X10*6/uL Hgb 15.5 (14.0-18.0) g/dl Hct 44.6 (42.0-52.0) % MCV 80.9 (80.0-98.0) fL MCH 28.1 (27.0-33.0) pg MCHC 34.8 (31.0-36.0) g/dl RDW 13.2 (11.0-16.0) % Plt Count 296 (160-400) X10*3/uL MPV 10.6 (9.4-12.4) fL Immature Gran % (Auto) 0.4 (0.0-0.4) % Neut % (Auto) 54.6 (45-73) % Lymph % (Auto) 36.7 (20-40) % [place] % (Auto) 7.3 (2-11) % Eos % (Auto) 0.8 (0-4) % Baso % (Auto) 0.2 (0-2) % Lymph # (Auto) 3.7 (1.2-4.9) X10*3/uL [place] # (Auto) 0.7 (0.1-1.2) X10*3/uL Eos # (Auto) 0.1 (0.0-0.4) X10*3/uL Baso # (Auto) 0.0 (0.0-0.2) X10*3/uL Abs Immat Gran (auto) 0.04 H (0.00-0.03) X10*3/uL Absolute Neuts (auto) 5.4 (2.0-8.3) x10*3/uL Absolute Nucleated RBC 0.000 (0.0-0.012) X10*3/uL Nucleated RBC % (auto) 0.0 (0.0-0.2) /100WBC PT 11.5 (10.9-12.4) SEC INR 1.0 (0.9-1.1) VBG pH 7.46 H (7.32-7.43) VBG pCO2 32 mmHg VBG pO2 102 mmHg VBG HCO3 23 (22-26) mmol/L VBG O2 Saturation 99.0 % VBG Base Excess 0.2 mmol/L Sodium 135 (135-145) mmol/L Potassium 3.9 (3.3-5.1) mmol/L Chloride 103 (96-108) mmol/L Carbon Dioxide 17 L (22-29) mmol/L Anion Gap 19 (12-20) BUN 9 (9-16) mg/dL Creatinine 0.87 (0.5-1.4) mg/dL Estim Creat Clear Calc 171.6 Estimated GFR > 60 Random Glucose 402 H* (60-115) mg/dL Calcium 9.5 (8.4-10.2) mg/dL Magnesium 1.8 (1.6-2.6) mg/dL Total Bilirubin 0.3 (0.0-1.0) mg/dL AST 25 (5-37) U/L ALT 37 (0-40) U/L Alkaline Phosphatase 81 (39-117) U/L B-Natriuretic Peptide < 10 (<100) pg/mL Total Protein 8.1 H (6.5-8.0) g/dL Albumin 4.0 (3.5-5.0) g/dL Lipase 24 (8-78) U/L Beta-Hydroxybutyrate 1.17 H (0.02-0.27) mmol/L Urine Color Yellow Urine Appearance Clear Urine pH 5.5 (5.0-9.0) Ur Specific [place] >= 1.030 H (1.005-1.025) Urine Protein 30 (1+) H (Neg-Trace) mg/dL Urine Glucose (UA) >=1000 H (Negative) mg/dL Urine Ketones 40 (Negative) mg/dL Urine Blood Negative (Negative) Urine Nitrite Negative (Negative) Ur Leukocyte Esterase Negative (Negative) Urine RBC 0-2 (0-2) /HPF Urine WBC 0-5 (0-5) /HPF Ur Squamous Epith Cells 0-2 (0-2) /HPF Urine Bacteria None Seen (None Seen) Hyaline Casts 0-2 (0-2) /LPF Urine Opiates Screen Not Detected (Not Detect) Ur Buprenorphine Scrn Not Detected (Not Detect) ng/mL Ur Oxycodone Screen Not Detected (Not Detect) ng/mL Urine Methadone Screen Not Detected (Not Detect) ng/mL Urine Fentanyl Screen Not Detected (Not Detect) Ur Barbiturates Screen Not Detected (Not Detect) Ur Phencyclidine Scrn Not Detected (Not Detect) Ur Amphetamines Screen Not Detected (Not Detect) U Benzodiazepines Scrn Not Detected (Not Detect) Urine Cocaine Screen Not Detected (Not Detect) U Marijuana (THC) Screen POSITIVE H (Not Detect) Ethyl Alcohol < 10 mg/dL Influenza Type A (PCR) NEGATIVE (Negative) Influenza Type B (PCR) NEGATIVE (Negative) RSV RNA Qual (PCR) NEGATIVE (Negative) SARS-CoV-2 RNA (RT-PCR) NEGATIVE (Negative) Discharge Plan Discharge Clinical Impression: Bipolar II disorder, Acute hyperglycemia Patient Disposition: Still a Patient Prescriptions: No Action (DME) FreeStyle Lite Strips Strip Qty: 100 0RF Rx Instructions: Test four times a day or as directed. (DME) blood-glucose meter [FreeStyle Lite Meter] Kit Qty: 1 0RF Rx Instructions: As Directed (DME) pen needle, diabetic 32 gauge x 1/4 needle Qty: 100 0RF Rx Instructions: Use four times a day or as directed. (DME) lancets [FreeStyle Lancets] 28 gauge misc Qty: 100 0RF Rx Instructions: Test four times a day or as directed. amlodipine 5 mg Tablet 5 mg PO DAILY Qty: 30 0RF Protocol: Hold for SBP< HOLD for SBP < : 90 ondansetron 4 mg tablet,disintegrating 4 mg PO Q8H PRN (Reason: nausea and vomiting) Qty: 20 0RF omeprazole 40 mg capsule,delayed release(DR/EC) 40 mg PO DAILY Qty: 14 0RF hydrochlorothiazide 25 mg tablet 25 mg PO DAILY Trulicity 1.5 mg/0.5 mL pen injector 1.5 mg subcut TU insulin lispro [Humalog KwikPen Insulin] 100 unit/mL insulin pen 1 sliding scale dose SUBCUT QIDACHS MDD 30U Qty: 15 0RF Rx Instructions: Blood Sugar: <150 - 0 units 151-200 - 2 units 201-250 - 4 units 251-300 - 6 units 301-350 - 8 units >350 - 10 units (DME) pen needle, diabetic 32 gauge x 1/4 needle Qty: 100 0RF Rx Instructions: Use four times a day or as directed. Interventions: Cranks-Suicide Risk Severity Scale Last Done: 06/19/24 21:53 Print Language: Bruneian
[2024-06-19 20:48] LABS: Basophils Percent Auto 0.2 % (0-2); Eosinophils Absolute Auto 0.1 X10*3/uL (0.0-0.4); Eosinophils Percent Auto 0.8 % (0-4); Hematocrit 44.6 % (42.0-52.0); Hemoglobin 15.5 g/dl (14.0-18.0); Imm Gran Abs Auto 0.04 X10*3/uL (0.00-0.03); Imm Gran Pct Auto 0.4 % (0.0-0.4); Lymphocytes Absolute Auto 3.7 X10*3/uL (1.2-4.9); Lymphocytes Percent Auto 36.7 % (20-40); MANUAL DIFF FLAG NO; Mean Corpuscular HGB Conc 34.8 g/dl (31.0-36.0); Mean Corpuscular Hemoglobin 28.1 pg (27.0-33.0); Mean Corpuscular Volume 80.9 fL (80.0-98.0); Mean Platelet Volume 10.6 fL (9.4-12.4); Monocytes Absolute Auto 0.7 X10*3/uL (0.1-1.2); Monocytes Percent Auto 7.3 % (2-11); Neutrophils Absolute Auto 5.4 x10*3/uL (2.0-8.3); Neutrophils Percent Auto 54.6 % (45-73); Platelet Count 296 X10*3/uL (160-400); Red Blood Count 5.51 X10*6/uL (4.60-5.80); Red Cell Distribution Width 13.2 % (11.0-16.0); White Blood Count 9.9 X10*3/uL (4.8-10.8)
[2024-06-19 20:52] LABS: VBG Base Excess 0.2 mmol/L; VBG HCO3 23 mmol/L (22-26); VBG pCO2 32 mmHg; VBG pH 7.46 (7.32-7.43); VBG pO2 102 mmHg
[2024-06-19 20:53] LABS: Venous Blood Gas Refer to POC result
[2024-06-19 21:00] LABS: Ethanol < 10 mg/dL; Prothrombin Time 11.5 SEC (10.9-12.4)
[2024-06-19 21:02] LABS: Beta-Hydroxybutyrate 1.17 mmol/L (0.02-0.27)
[2024-06-19 21:11] LABS: B Type Natriuretic Peptide < 10 pg/mL (<100)
[2024-06-19 21:23] LABS: Alanine Aminotransferase 37 U/L (0-40); Alkaline Phosphatase 81 U/L (39-117); Anion Gap 19 (12-20); Aspartate Amino Transferase 25 U/L (5-37); Bilirubin Total 0.3 mg/dL (0.0-1.0); Blood Urea Nitrogen 9 mg/dL (9-16); Calcium 9.5 mg/dL (8.4-10.2); Carbon Dioxide 17 mmol/L (22-29); Chloride 103 mmol/L (96-108); Creatinine Clr Calc Pharmacy 171.6; Estimated Glomerular Filt Rate > 60; Glucose Random 402 mg/dL (60-115); Lipase 24 U/L (8-78); Magnesium 1.8 mg/dL (1.6-2.6); Potassium 3.9 mmol/L (3.3-5.1); Sodium 135 mmol/L (135-145); Total Protein 8.1 g/dL (6.5-8.0)
[2024-06-19 21:27] LABS: Influenza A PCR NEGATIVE (Negative); Influenza B PCR NEGATIVE (Negative); Resp Syncy Virus RNA Qual PCR NEGATIVE (Negative); SARS COV2 PCR INHOUSE NEGATIVE (Negative)
[2024-06-19 22:17] LABS: Appearance Urine Clear; Color Urine Yellow; Glucose Urine UA >=1000 mg/dL (Negative); Leukocyte Esterase Urine Negative (Negative); Nitrite Urine Negative (Negative); PH 5.5 (5.0-9.0); Specific Gravity - Urine >= 1.030 (1.005-1.025); UMIC TRIGGER UACC YES; Urine Blood Negative (Negative); Urine Ketones 40 mg/dL (Negative); Urine Protein 30 (1+) mg/dL (Neg-Trace)
--- NOTE | 2024-06-19 22:28 | ED_ITS ---
HPI - General Adult General Chief complaint: Psychiatric Symptoms Stated complaint: crisis Time Seen by Provider: 06/19/24 21:28 Source: patient Mode of arrival: ambulatory Limitations: no limitations History of Present Illness ED Provider: Dr. Germania Pal HPI narrative: Patient comes to the emergency room complaining of 2 weeks of feeling manic, patient admits that he has a history of schizophrenia bipolar disorder. Patient denies SI or HI. Patient admits that he has been complaining of angry outbursts. Also, patient states that his glucose is elevated, and has been urinating more than usual. Denies hematuria or dysuria. Related Data Home Medications ?Medication ?Instructions ?Recorded ?Confirmed dulaglutide 1.5 mg/0.5 mL 1.5 mg subcut TU 05/14/23 05/14/23 [facility] hydrochlorothiazide 25 mg tablet 25 mg PO DAILY 05/14/23 05/14/23 Previous Rx's ?Medication ?Instructions ?Recorded amlodipine 5 mg tablet 5 mg PO DAILY #30 tabs 04/29/22 blood sugar diagnostic (FreeStyle #100 ea 04/29/22 Lite Strips) blood-glucose meter (FreeStyle #1 ea 04/29/22 Lite Meter kit) lancets 28 gauge (FreeStyle #100 ea 04/29/22 Lancets) pen needle, diabetic 32 gauge x #100 ea 04/29/2205/14 insulin lispro 100 unit/mL 1 sliding scale dose subcut 05/15/23 subcutaneous pen (Humalog KwikPen QIDACHS #15 mL (U-100) Insulin) pen needle, diabetic 32 gauge x #100 ea 05/15/2305/14 omeprazole 40 mg capsule,delayed 40 mg PO DAILY #14 caps 04/20/24 release ondansetron 4 mg disintegrating 4 mg PO Q8H PRN nausea and 04/20/24 tablet vomiting #20 tabs Allergies Allergy/AdvReac Type Severity Reaction Status Date / Time metformin Allergy Nausea and Verified 06/19/24 20:28 Vomiting Sulfa (Sulfonamide AdvReac Mild BURNING EAR Verified 06/19/24 20:28 Antibiotics) [SULFA (SULFONAMIDE ANTIBIOTICS)] Apples Allergy Unknown Itching Uncoded 06/19/24 20:28 Review of Systems 2 Review of Systems: Constitutional : No Weight loss, No Fever, No Chills, No Night Sweats, No Fatigue, No Malaise ENT/Mouth : No Hearing loss, No Ear Pain, No Nasal Congestion, No Sinus Pain, No Hoarseness, No sore throat, No Rhinorrhea, No Swallowing Difficulty Eyes: No Eye Pain, No Swelling, No Redness, No Foreign Body, No Discharge, No Vision Changes Cardiovascular : No Chest Pain, No SOB, No Dyspnea on Exertion, No Orthopnea, No Edema, No Palpitations Respiratory : No Cough, No Sputum, No Wheezing, No Smoke Exposure, No Dyspnea Gastrointestinal : No Nausea, No Vomiting, No Diarrhea, No Constipation, No abdominal Pain, No Hematochezia, No Melena Genitourinary : no irregular bleeding, No Dysuria, No Urinary Frequency, No Hematuria, No Urinary Incontinence, No Urgency, No Flank Pain, No Urinary Flow Changes, No Hesitancy Musculoskeletal : No joint pain, No Myalgias, No Joint Swelling Skin : No Skin Lesions, No rash Neuro : No Weakness, No Numbness, No Paresthesias, No Loss of Consciousness, No Dizziness, No Headache Psych : No Anxiety/Panic, No Depression, No SI/HI/AH/VH, complaining of frequent anger outburst Heme/Lymph: No Bruising, No Bleeding,No Lymphadenopathy Endocrine : Complaining of polyuria and polydipsia No Temperature Intolerance PMFSH Past Medical History Medical History Pre-op evaluation Bipolar II disorder Schizophrenia Morbid obesity with BMI of 70 and over, adult Obesity Hyperglycemia due to type 2 diabetes mellitus Anxiety Depression HTN (hypertension) Surgical History History of placement of ear tubes Hx of tonsillectomy Family History Family History Mother Diabetes Father Dialysis patient Hypertension Diabetes Sister Obesity Sister Obesity Sister No problems noted. Brother Diabetes Brother No problems noted. Brother No problems noted. Social History Social History Household Members: None Household Members Other:: ROOMATE Housing: Apartment Do you presently have visiting nurse or other home services: Yes (home health aide) Alcohol intake: current Alcohol intake frequency: a few times a month Alcohol type: hard liquor Patient Tobacco Use Status: Never used Tobacco Tobacco use type: Cigarette Cigarettes Per Day: 2 Smoked in Last 30 Days: Yes e-Cigarette/Vaping Use: Former Use Second Hand Smoke Exposure: No Use of substances other than those prescribed or required for medical reasons: Yes Substance Use Type: Marijuana Substance Use Frequency: Daily Advance Directives: Yes Advance Directives on File: Yes Advance Directives Date on File: 05/18/23 service: No Current occupational status: employed Physical Exam ED Vital Signs: Vital Signs - 24 hr 06/19/24 20:25 Temperature 98.3 F Pulse Rate 110 H Respiratory Rate 18 Blood Pressure 149/81 H Pulse Oximetry 95 Oxygen Delivery Method Room Air BMI result Body Mass Index 59.7 Const Other: Appearance: Alert. Oriented X3. No acute distress. Well-appearing Eyes: Pupils equal, round and reactive to light. ENT: Pharynx normal. Neck: Normal inspection. Neck supple. No lymph nodes noted. No crepitus CVS: Normal heart rate and rhythm. Pulses normal. Normal S1 and S2 Respiratory: No respiratory distress. Breath sounds normal. No Wheezing. No rales Abdomen: Soft and nontender. No rigidity. No distention. Skin: Skin warm and dry. Normal skin color. Normal skin turgor. Extremities: No lower extremity edema. No Lacerations. No Rash Neuro: Oriented X 3. No motor deficit. No sensory deficit. Moving all extremities. No slurred speech. CN 2 through 12 grossly intact Psych: calm, cooperative, normal affect Course Course Course Narrative: This is an RME performed by Suzanne Julian CNP: Additional HPI, ROS, PE not included below will be deferred to primary provider. Patient is a 33-year-old male past medical history of schizophrenia bipolar 2 disorder, hypertension, diabetes, VICKIE presents emergency department for evaluation his sister is present of whom he lives with, she provides majority of history he has been experiencing suicidal ideations over the past 2 weeks, not endorsing any specific plan, she states he has been manic over the past 2 weeks. Has not been on any medications over the past 2 years, had an appointment with psych on restart medications, but evidently has not been consistent with any medications for the past 2 years. Also states blood sugars have been notably elevated not well controlled despite insulin usage, current glucose monitor reading >400, admits to polyuria and polydipsia. Admits that he has been drinking some beer since yesterday, reports last drink pain 1-1.5 hours ago. Plan: Serum labs, toxicology Medications Administered Discontinued Medications Generic Name Dose Route Start Last Admin Trade Name Maddi PRN Reason Stop Dose Admin Sodium Chloride 2,000 mls @ 999 mls/hr 06/19/24 22:27 06/19/24 23:35 Ns IVCONT 06/20/24 00:27 Not Given .Q2H1M ONE Insulin Human Lispro 10 unit 06/20/24 00:07 06/20/24 00:36 Insulin Lispro 100 Unit/Ml 3 Ml Vial SUBCUT 06/20/24 00:08 10 unit ONCE ONE Administration Insulin Human Regular 10 unit 06/19/24 22:27 06/19/24 23:35 Insulin Regular, Human 100 Unit/Ml 10 Ml Vial IVPUSH 06/19/24 22:28 Not Given ONCE ONE Medical Decision Making Medical Decision Making [facility] Narrative: My interpretation of labs: No significant abnormality in patient's hematology, chemistry shows a glucose of 402, magnesium 1.8, BNP negative. Anion gap is closed We attempted to give patient IV fluids and IV insulin. However, patient is a difficult stick.. Patient requested subcutaneous insulin instead of IV. Patient received 10 units of subcutaneous insulin. Glucose now 282 Care team consult pending Patient is on a Section 12, so far patient has not voiced any SI or HI Sign out given to my colleague Dr. Contreras Differential Diagnosis Differential Diagnoses: The differential diagnosis associated with the presentation includes (Anxiety, depression, bipolar disorder, schizophrenia, hyperglycemia, medication noncompliance) Admission/Observation Consideration of admission/observation: Escalation of care including admission/observation considered (Patient waiting to be seen by the care team) Lab Data [facility] Lab Attestation statement: I reviewed the patient's lab results. 06/19/24 20:43 06/19/24 20:43 Labs: Lab Results 06/19/24 06/19/24 06/19/24 Range/Units 20:43 20:46 22:07 WBC 9.9 (4.8-10.8) X10*3/uL RBC 5.51 (4.60-5.80) X10*6/uL Hgb 15.5 (14.0-18.0) g/dl Hct 44.6 (42.0-52.0) % MCV 80.9 (80.0-98.0) fL MCH 28.1 (27.0-33.0) pg MCHC 34.8 (31.0-36.0) g/dl RDW 13.2 (11.0-16.0) % Plt Count 296 (160-400) X10*3/uL MPV 10.6 (9.4-12.4) fL Immature Gran % (Auto) 0.4 (0.0-0.4) % Neut % (Auto) 54.6 (45-73) % Lymph % (Auto) 36.7 (20-40) % [place] % (Auto) 7.3 (2-11) % Eos % (Auto) 0.8 (0-4) % Baso % (Auto) 0.2 (0-2) % Lymph # (Auto) 3.7 (1.2-4.9) X10*3/uL [place] # (Auto) 0.7 (0.1-1.2) X10*3/uL Eos # (Auto) 0.1 (0.0-0.4) X10*3/uL Baso # (Auto) 0.0 (0.0-0.2) X10*3/uL Abs Immat Gran (auto) 0.04 H (0.00-0.03) X10*3/uL Absolute Neuts (auto) 5.4 (2.0-8.3) x10*3/uL Absolute Nucleated RBC 0.000 (0.0-0.012) X10*3/uL Nucleated RBC % (auto) 0.0 (0.0-0.2) /100WBC PT 11.5 (10.9-12.4) SEC INR 1.0 (0.9-1.1) VBG pH 7.46 H (7.32-7.43) VBG pCO2 32 mmHg VBG pO2 102 mmHg VBG HCO3 23 (22-26) mmol/L VBG O2 Saturation 99.0 % VBG Base Excess 0.2 mmol/L Sodium 135 (135-145) mmol/L Potassium 3.9 (3.3-5.1) mmol/L Chloride 103 (96-108) mmol/L Carbon Dioxide 17 L (22-29) mmol/L Anion Gap 19 (12-20) BUN 9 (9-16) mg/dL Creatinine 0.87 (0.5-1.4) mg/dL Estim Creat Clear Calc 171.6 Estimated GFR > 60 Random Glucose 402 H* (60-115) mg/dL Calcium 9.5 (8.4-10.2) mg/dL Magnesium 1.8 (1.6-2.6) mg/dL Total Bilirubin 0.3 (0.0-1.0) mg/dL AST 25 (5-37) U/L ALT 37 (0-40) U/L Alkaline Phosphatase 81 (39-117) U/L B-Natriuretic Peptide < 10 (<100) pg/mL Total Protein 8.1 H (6.5-8.0) g/dL Albumin 4.0 (3.5-5.0) g/dL Lipase 24 (8-78) U/L Beta-Hydroxybutyrate 1.17 H (0.02-0.27) mmol/L Urine Color Yellow Urine Appearance Clear Urine pH 5.5 (5.0-9.0) Ur Specific [place] >= 1.030 H (1.005-1.025) Urine Protein 30 (1+) H (Neg-Trace) mg/dL Urine Glucose (UA) >=1000 H (Negative) mg/dL Urine Ketones 40 (Negative) mg/dL Urine Blood Negative (Negative) Urine Nitrite Negative (Negative) Ur Leukocyte Esterase Negative (Negative) Urine RBC 0-2 (0-2) /HPF Urine WBC 0-5 (0-5) /HPF Ur Squamous Epith Cells 0-2 (0-2) /HPF Urine Bacteria None Seen (None Seen) Hyaline Casts 0-2 (0-2) /LPF Urine Opiates Screen Not Detected (Not Detect) Ur Buprenorphine Scrn Not Detected (Not Detect) ng/mL Ur Oxycodone Screen Not Detected (Not Detect) ng/mL Urine Methadone Screen Not Detected (Not Detect) ng/mL Urine Fentanyl Screen Not Detected (Not Detect) Ur Barbiturates Screen Not Detected (Not Detect) Ur Phencyclidine Scrn Not Detected (Not Detect) Ur Amphetamines Screen Not Detected (Not Detect) U Benzodiazepines Scrn Not Detected (Not Detect) Urine Cocaine Screen Not Detected (Not Detect) U Marijuana (THC) Screen POSITIVE H (Not Detect) Ethyl Alcohol < 10 mg/dL Influenza Type A (PCR) NEGATIVE (Negative) Influenza Type B (PCR) NEGATIVE (Negative) RSV RNA Qual (PCR) NEGATIVE (Negative) SARS-CoV-2 RNA (RT-PCR) NEGATIVE (Negative) Critical Care Time Critical Care Time Critical Care Time: Yes Total Critical Care Time: 35 Attestation: I have personally provided critical care time. Time includes review of lab data, radiology results, discussion with consultants, and monitoring for potential decompensation. Intervention performed as documented. Discharge Plan Discharge Clinical Impression: Bipolar II disorder, Acute hyperglycemia Patient Disposition: Still a Patient Prescriptions: No Action (DME) FreeStyle Lite Strips Strip Qty: 100 0RF Rx Instructions: Test four times a day or as directed. (DME) blood-glucose meter [FreeStyle Lite Meter] Kit Qty: 1 0RF Rx Instructions: As Directed (DME) pen needle, diabetic 32 gauge x 1/4 needle Qty: 100 0RF Rx Instructions: Use four times a day or as directed. (DME) lancets [FreeStyle Lancets] 28 gauge misc Qty: 100 0RF Rx Instructions: Test four times a day or as directed. amlodipine 5 mg Tablet 5 mg PO DAILY Qty: 30 0RF Protocol: Hold for SBP< HOLD for SBP < : 90 ondansetron 4 mg tablet,disintegrating 4 mg PO Q8H PRN (Reason: nausea and vomiting) Qty: 20 0RF omeprazole 40 mg capsule,delayed release(DR/EC) 40 mg PO DAILY Qty: 14 0RF hydrochlorothiazide 25 mg tablet 25 mg PO DAILY Trulicity 1.5 mg/0.5 mL pen injector 1.5 mg subcut TU insulin lispro [Humalog KwikPen Insulin] 100 unit/mL insulin pen 1 sliding scale dose SUBCUT QIDACHS MDD 30U Qty: 15 0RF Rx Instructions: Blood Sugar: <150 - 0 units 151-200 - 2 units 201-250 - 4 units 251-300 - 6 units 301-350 - 8 units >350 - 10 units (DME) pen needle, diabetic 32 gauge x 1/4 needle Qty: 100 0RF Rx Instructions: Use four times a day or as directed. Interventions: Swisher-Suicide Risk Severity Scale Last Done: 06/19/24 21:53 Print Language: Chinese
[2024-06-19 22:37] LABS: Bacteria Urine None Seen (None Seen); Hyaline Casts Urine 0-2 /LPF (0-2); RBC Urine 0-2 /HPF (0-2); Squamous Epithelial Cell Urine 0-2 /HPF (0-2); WBC Urine 0-5 /HPF (0-5)
--- NOTE | 2024-06-19 23:30 | PC.NURSE ---
unable to obtain IV access after multiple attempts by RNs. aware
[2024-06-19 23:33] LABS: Amphetamine Screen Urine Not Detected (Not Detect); Barbiturates, Urine Not Detected (Not Detect); Benzodiazepines Screen Urine Not Detected (Not Detect); Buprenorphine Scr Not Detected (Not Detect); Cannabinoid Screen Urine POSITIVE (Not Detect); Cocaine Screen Urine Not Detected (Not Detect); Fentanyl, urine Not Detected (Not Detect); Methadone Screen, Urine Not Detected (Not Detect); Opiate Screen Urine Not Detected (Not Detect); Oxycodone Screen Urine Not Detected (Not Detect); Phencyclidine Screen Urine Not Detected (Not Detect)
--- NOTE | 2024-06-19 23:56 | MHC.EDTECH ---
patient changed over on arrival with belongings secured in [facility]
[2024-06-20] MEDS: Insulin Lispro 100 UNIT/ML 3 ML VIAL 10 UNIT SUBCUT ×3 (00:36→18:20)
[2024-06-20 01:58] LABS: Glucose, Whole Blood 282 mg/dL (60-115)
--- NOTE | 2024-06-20 03:09 | PC.NURSE ---
pt very restless in ED, up and down from the bed, wanting to walk and clean the ED. walking to try to get his own food/drink. very talkative with sitter at bedside. pt changed into appropriate attire with no difficulty. pt walked to POD by security.
--- NOTE | 2024-06-20 03:14 | PC.NURSE ---
client walked over from main ed belongings placed in locker 9
--- NOTE | 2024-06-20 06:17 | PC.NURSE ---
client seems to like to critique things in his environment, makes negative comments on ice machine, quality of the sal shekhar.
--- NOTE | 2024-06-20 06:30 | PC.NURSE ---
patient engaging in negative attention seeking behaviors (WALKING around and making all sinks run)
--- NOTE | 2024-06-20 06:31 | PC.NURSE ---
perhaps whats bringing client in to hospital is lack of stimulus/loneliness
[2024-06-20 08:06] VITALS: BP 138/82; PULSE 100; RESP 18; TEMP 36.8; O2SAT 97
--- NOTE | 2024-06-20 11:15 | ECG_ITS ---
Test Reason : CHECK QT Blood Pressure : */* mmHG Vent. Rate : 93 BPM Atrial Rate : 93 BPM P-R Int : 160 ms QRS Dur : 84 ms QT Int : 328 ms P-R-T Axes : 49 19 22 degrees QTcB Int : 407 ms Normal sinus rhythm with sinus arrhythmia Normal ECG When compared with ECG of 14-May-2023 09:53, No significant change was found Referred By: Rosita Covarrubias Electronically Signed By: SELINA KAT MD
--- NOTE | 2024-06-20 11:26 | PC.NURSE ---
Pharmacy at bedside to assist with med rec.
--- NOTE | 2024-06-20 11:42 | PHA.MEDREC ---
Addendum entered by Ariel Cloud RPh 06/20/24 12:01: Med rec was reviewed by [facility]. Original Note: Pharmacy Consult ? Medication Reconciliation Pharmacy has completed the medication reconciliation. Spoke to patient to confirm med list. Patient states he is no longer taking Amlodipine 5 mg, and HCTZ 25 mg (patient states he stopped 6 months ago, however there are current claims for both medications) , Omeprazole 40 mg Ozempic 0.05 mg ( now on Trulicity). Patient confirmed Lantus Solostar 32 units daily, Hualog Kwikpen Is per sliding scale TID, and Trulicity 1.5 mg is every Thursday, last dose 06/13/24.
[2024-06-20 13:46] LABS: Glucose, Whole Blood 509 mg/dL (60-115)
[2024-06-20 13:46] LABS: Glucose, Whole Blood 529 mg/dL (60-115)
[2024-06-20] MEDS: Insulin Glargine,Hum.rec.anlog 100 UNIT/ML 10 ML VIAL 32 UNIT SUBCUT (14:21)
--- NOTE | 2024-06-20 14:22 | PC.NURSE ---
Glucose elevated, MD Covarrubias made aware. Pt restarted on his insulin SS and lantus.
--- NOTE | 2024-06-20 14:41 | PC.NURSE ---
Report given to RN on M3.
[2024-06-20 15:48] LABS: Glucose, Whole Blood > 600 mg/dL (60-115)
[2024-06-20 15:56] LABS: Glucose, Whole Blood 559 mg/dL (60-115)
--- NOTE | 2024-06-20 16:30 | PC.NURSE ---
patient bood sugar remains elevated at 559 post insulin administered by previous RN at [address] Covarrubias aware, verbal order to give lispro 10u. patient awake and alert, cooperative, ambulating around the milieu socializing with other patients.
[2024-06-20] MEDS: Insulin Lispro 100 UNIT/ML 3 ML VIAL SUBCUT ×2 (17:15→20:58)
[2024-06-20 17:58] LABS: Glucose, Whole Blood 420 mg/dL (60-115)
--- NOTE | 2024-06-20 19:08 | PC.NURSE ---
patient appears to remain at rest presently respirations are even and unlabored patient appears in no distress patient appears destined for inpatient unit however, glucose appears unstable will discuss goal with provider in the near future
[2024-06-20 20:39] LABS: Glucose, Whole Blood 282 mg/dL (60-115)
[2024-06-20] MEDS: DULAGLUTIDE 0.75 MG/0.5 ML 0.75 EACH SUBCUT (20:57)
[2024-06-20] MEDS: LORazepam 1 MG TABLET 2 MG PO (22:38)
[2024-06-20] MEDS: Lurasidone HCl 40 MG TABLET PO (22:43)
--- NOTE | 2024-06-21 04:20 | PC.NURSE ---
up ad kang to rest room
--- NOTE | 2024-06-21 07:05 | PC.NURSE ---
Assumed care of patient at 0645, patient appears to be in no apparent distress this am, calm and cooperative, requesting shower. patient offers no complaints to this RN. Patient aware of plan of care for inpatient bedsearch
[2024-06-21 07:09] LABS: Glucose, Whole Blood 316 mg/dL (60-115)
[2024-06-21 07:53] VITALS: BP 138/92; PULSE 101; RESP 16; O2SAT 95
[2024-06-21 08:00] VITALS: BP 142/84; PULSE 91; RESP 16; TEMP 37.1; O2SAT 97
[2024-06-21] MEDS: Insulin Lispro 100 UNIT/ML 3 ML VIAL SUBCUT ×3 (08:02→20:32)
[2024-06-21] MEDS: Insulin Glargine,Hum.rec.anlog 100 UNIT/ML 10 ML VIAL 32 UNIT SUBCUT (08:02)
[2024-06-21] MEDS: hydrOXYzine HCL 25 MG TABLET PO (09:46)
[2024-06-21 10:18] LABS: Glucose, Whole Blood 460 mg/dL (60-115)
[2024-06-21] MEDS: LORazepam 1 MG TABLET PO (10:38)
[2024-06-21] MEDS: Insulin Lispro 100 UNIT/ML 3 ML VIAL 12 UNIT SUBCUT (10:38)
--- NOTE | 2024-06-21 10:54 | PC.NURSE ---
Patient continuing to yell, unable to maintain inside volumes. Patient medicated with PRN Hydroxyzine without positive effect. Pt also given PO Ativan
[2024-06-21 11:15] LABS: Glucose, Whole Blood 493 mg/dL (60-115)
--- NOTE | 2024-06-21 11:37 | PC.NURSE ---
pt stole ice cream from another patient, pt encouraged not to do so especially with his diabetes
[2024-06-21 11:50] VITALS: BP 136/90; PULSE 86; RESP 16; TEMP 36.6; O2SAT 98
[2024-06-21 12:08] LABS: Glucose, Whole Blood 430 mg/dL (60-115)
[2024-06-21 13:16] VITALS: BMI 58.4
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
[2024-06-21 15:05] LABS: Estimated Average Glucose 309 mg/dL; Hemoglobin A1C 444.6673 umol/L; Hemoglobin A1c % 12.4 % (<6.0); Total Hemoglobin (HGBA1C) 3971.7846 umol/L
[2024-06-21 15:19] LABS: Alanine Aminotransferase 43 U/L (0-40); Aspartate Amino Transferase 33 U/L (5-37); Bilirubin Total 0.4 mg/dL (0.0-1.0); Blood Urea Nitrogen 12 mg/dL (9-16); Calcium 9.7 mg/dL (8.4-10.2); Creatinine Clr Calc Pharmacy 154.9; Estimated Glomerular Filt Rate > 60; Glucose Random 386 mg/dL (60-115); Total Protein 8.1 g/dL (6.5-8.0)
[2024-06-21 15:21] LABS: Cholesterol 210 mg/dL (<200); HDL Cholesterol 31 mg/dL (>40); Triglycerides 686 mg/dL (<150)
[2024-06-21 15:48] LABS: Free T4 (Free Thyroxine) 1.17 ng/dL (0.71-1.85); Thyroid Stimulating Hormone 1.11 uIU/mL (0.32-4.0)
[2024-06-21 16:04] LABS: Folate 10.1 ng/mL (> or = 4.0); Vitamin B12 323 pg/mL (200-900)
[2024-06-21 17:02] LABS: Glucose, Whole Blood 276 mg/dL (60-115)
[2024-06-21 17:11] LABS: Alkaline Phosphatase 81 U/L (39-117); Anion Gap 15 (12-20); Carbon Dioxide 24 mmol/L (22-29); Chloride 101 mmol/L (96-108); Potassium 4.5 mmol/L (3.3-5.1); Sodium 135 mmol/L (135-145)
[2024-06-21] MEDS: hydrOXYzine HCL 50 MG TABLET PO (17:28)
[2024-06-21] MEDS: OLANZapine 5 MG TABLET PO (17:28)
--- NOTE | 2024-06-21 18:47 | PC.NURSE ---
Hilaria was admitted to M3 at 1146 from [facility]? on CV for treatment of aureliano. Per crisis evaluation pt has been off his psychiatric medications and has been having angry outbursts, poor sleep and has recently quit his job due to paranoia about coworkers.? Patient is alert, oriented to day, date, time. 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 Mood is expansive, affect is labile with agitation and verbal aggression toward peer on the unit. This appears to have been precipitated by pt misinterpreting a peer?s discussion of a rapper and Hilaria thought peer was talking about him.? He denies auditory and visual hallucinations.?Thought Process is disorganized Pt denies ideation, plan or intent to harm self or others.Appetite is good. Sleep is poor. Focus is poor and pt tends to speak over RN. Substance Issues: Pt reports drinking ?a few drinks on weekends? and smoking marijuana every day. Medical issues include uncontrolled diabetes mellitus and diffuse boils noted in all skin folds. Goal of admission per pt is to get back on his psychiatric medications. Safety Checks are q 15 minutes.
[2024-06-21 20:00] VITALS: BP 135/83; PULSE 96; RESP 16; TEMP 36.6; O2SAT 95
[2024-06-21 20:12] LABS: Glucose, Whole Blood 410 mg/dL (60-115)
--- NOTE | 2024-06-21 22:20 | PM.EVENT ---
Event Note Date of Service: 06/21/24 Event Note: consult placed for DM management due to persistent elevated blood sugars. - continue sliding scale and lantus 32U daily, add lantus 6U at bedtime - recommend weight loss, decrease calorie intake and lower sugar/carb intake Time Spent With Patient Time: Total time managing care of this patient today ____ minutes.
[2024-06-21] MEDS: Insulin Glargine,Hum.rec.anlog 100 UNIT/ML 10 ML VIAL 6 UNIT SUBCUT (22:47)
[2024-06-22 07:43] VITALS: BP 174/96; PULSE 108; RESP 16; TEMP 36; O2SAT 95
[2024-06-22 07:58] LABS: Glucose, Whole Blood 344 mg/dL (60-115)
[2024-06-22 09:05] LABS: Cholesterol 196 mg/dL (<200); HDL Cholesterol 30 mg/dL (>40); Triglycerides 561 mg/dL (<150)
[2024-06-22] MEDS: Insulin Lispro 100 UNIT/ML 3 ML VIAL SUBCUT ×5 (09:06→22:36)
[2024-06-22] MEDS: Insulin Glargine,Hum.rec.anlog 100 UNIT/ML 10 ML VIAL 32 UNIT SUBCUT (09:07)
[2024-06-22] MEDS: Insulin Lispro 100 UNIT/ML 3 ML VIAL 10 UNIT SUBCUT (11:58)
[2024-06-22 11:59] LABS: Glucose, Whole Blood 435 mg/dL (60-115)
--- NOTE | 2024-06-22 16:29 | HO.PSYCHPN ---
Subjective Subjective Date of Service: 06/22/24 Reason For Visit: Emotional dysregulation Interim History: states he is feeling better and medication is working. does not seem to have any idea what depakote is, despite its various names' being mentioned. per nursing report, refused depakote last night saying it does not work for him and so he won't take it. broached with pt, he said he was asleep and was awakened from sleep and was too tired so declined. per staff report, appetite good. refused CPAP last night, appeared to have slept. refused depakote again today, saying he will not take it. Mental Status Exam Mental Status Exam Narrative: A&O. Obese, wearing own attire, adequate hygiene. Good eye contact, attentive. No Tics or Tremors. No abnormal involuntary movements. Calm, cooperative, engaged. incr rate and amount of speech, nml prosody and loudness, decr latency. No prolonged speech latency or dysarthria. Mood not assessed, affect is euthymic. no SI/HI/AVH expressed. Thoughts are coherent, organized. No known cognitive or memory impairment. Insight/ Judgment impaired. Diagnostics Vital Signs (24Hr): Vital Signs - 24 hr 06/21/24 20:00 06/22/24 07:43 Temperature 97.8 F 96.8 F Pulse Rate 96 108 H Respiratory Rate 16 16 Blood Pressure 135/83 174/96 H Pulse Oximetry 95 95 Oxygen Delivery Method Room Air Room Air BMI result Body Mass Index 58.4 Labs 06/19/24 20:43 06/21/24 14:16 Labs: Laboratory Results - last 48 hr 06/20/24 06/20/24 06/21/24 17:54 20:35 07:06 Sodium Potassium Chloride Carbon Dioxide Anion Gap BUN Creatinine Estim Creat Clear Calc Estimated GFR POC Glucose 420 H* 282 H 316 H Random Glucose Estimat Average Glucose Hemoglobin A1c % Calcium Total Bilirubin AST ALT Alkaline Phosphatase Total Protein Albumin Triglycerides Cholesterol LDL Cholesterol, Calc HDL Cholesterol Vitamin B12 Folate TSH Free T4 06/21/24 06/21/24 06/21/24 10:14 11:11 12:03 Sodium Potassium Chloride Carbon Dioxide Anion Gap BUN Creatinine Estim Creat Clear Calc Estimated GFR POC Glucose 460 H* 493 H* 430 H* Random Glucose Estimat Average Glucose Hemoglobin A1c % Calcium Total Bilirubin AST ALT Alkaline Phosphatase Total Protein Albumin Triglycerides Cholesterol LDL Cholesterol, Calc HDL Cholesterol Vitamin B12 Folate TSH Free T4 06/21/24 06/21/24 06/21/24 14:16 16:58 20:09 Sodium 135 Potassium 4.5 Chloride 101 Carbon Dioxide 24 Anion Gap 15 BUN 12 Creatinine 0.95 Estim Creat Clear Calc 154.9 Estimated GFR > 60 POC Glucose 276 H 410 H* Random Glucose 386 H* Estimat Average Glucose 309 Hemoglobin A1c % 12.4 H Calcium 9.7 Total Bilirubin 0.4 AST 33 ALT 43 H Alkaline Phosphatase 81 Total Protein 8.1 H Albumin 4.0 Triglycerides 686 H Cholesterol 210 H LDL Cholesterol, Calc TNP HDL Cholesterol 31 L Vitamin B12 323 Folate 10.1 TSH 1.11 Free T4 1.17 06/22/24 06/22/24 06/22/24 07:42 08:26 11:45 Sodium Potassium Chloride Carbon Dioxide Anion Gap BUN Creatinine Estim Creat Clear Calc Estimated GFR POC Glucose 344 H 435 H* Random Glucose Estimat Average Glucose Hemoglobin A1c % Calcium Total Bilirubin AST ALT Alkaline Phosphatase Total Protein Albumin Triglycerides 561 H Cholesterol 196 LDL Cholesterol, Calc TNP HDL Cholesterol 30 L Vitamin B12 Folate TSH Free T4 Medications Medications Current Medications Acetaminophen (Acetaminophen 325 Mg Tablet) 650 mg PO Q6H PRN PRN Reason: Headache/Pain, Scale 1-10 Al Hydroxide/Mg Hydroxide (Magnesium Hydrox/Alum Hydrox 30 Ml Oral.Susp) 30 ml PO Q6H PRN PRN Reason: Heartburn/Nausea Dextrose (Dextrose 50 % 25 Gm/50 Ml Syringe) 25 gm IVPUSH Q15M PRN; Protocol PRN Reason: per Hypoglycemia Standing Ord. Divalproex Sodium (Divalproex Sodium Er 500 Mg Tab.Er.24h) 2,000 mg PO BEDTIME MALICK Last Admin: 06/21/24 20:18 Dose: Not Given Glucose (Glucose Gel 15 Gm Gel..Gram.) 15 gm PO Q15M PRN; Protocol PRN Reason: per Hypoglycemia Standing Ord. Glucose (Glucose Gel 15 Gm Gel..Gram.) 15 gm PO Q15M PRN; Protocol PRN Reason: per Hypoglycemia Standing Ord. Hydroxyzine HCl (Hydroxyzine Hcl 50 Mg Tablet) 50 mg PO Q6H PRN PRN Reason: mild anxiety Last Admin: 06/21/24 17:28 Dose: 50 mg Insulin Glargine (Insulin Glargine,Hum.Rec.Anlog 100 Unit/Ml 10 Ml Vial) 32 unit SUBCUT DAILY [facility] Last Admin: 06/22/24 09:07 Dose: 32 unit Insulin Glargine (Insulin Glargine,Hum.Rec.Anlog 100 Unit/Ml 10 Ml Vial) 6 unit SUBCUT BEDTIME MALICK Insulin Human Lispro (Insulin Lispro 100 Unit/Ml 3 Ml Vial) 0 unit SUBCUT QIDACHS [facility]; Protocol Last Admin: 06/22/24 11:59 Dose: 10 unit Magnesium Hydroxide (Milk Of Magnesia 30 Ml Oral.Susp) 30 ml PO DAILY PRN PRN Reason: Constipation Nicotine (Nicotine 21 Mg Patch.Td24) 21 mg TRANSDERMA DAILY [facility] Last Admin: 06/22/24 09:09 Dose: Not Given Nicotine Polacrilex (Nicotine Polacrilex 2 Mg Gum) 4 mg BUCCAL Q2H PRN PRN Reason: Nicotine Cravings Pat Own Med ( Dulaglutide [ Trulicity] 0.75 Mg/0 .5 Ml Pen Injector) 0.75 mg SUBCUT MO [facility] Last Admin: 06/20/24 20:57 Dose: 0.75 mg Olanzapine (Olanzapine 5 Mg Tablet) 5 mg PO Q4H PRN PRN Reason: agitation/psychosis Last Admin: 06/21/24 17:28 Dose: 5 mg Trazodone HCl (Trazodone Hcl 50 Mg Tablet) 50 mg PO BEDTIME MRX1 PRN PRN Reason: Insomnia Allergies Allergies Allergy/AdvReac Type Severity Reaction Status Date / Time metformin Allergy Nausea and Verified 06/19/24 20:28 Vomiting Sulfa (Sulfonamide AdvReac Mild BURNING EAR Verified 06/19/24 20:28 Antibiotics) [SULFA (SULFONAMIDE ANTIBIOTICS)] Apples Allergy Unknown Itching Uncoded 06/19/24 20:28 Assessment & Plan Assessment & Plan (1) Bipolar II disorder: Status: Acute Code(s): F31.81 - Bipolar II disorder (2) Diabetes mellitus: Status: Acute Code(s): E11.9 - Type 2 diabetes mellitus without complications Plan 06/21: D/C latuda, which causes sialorrhea and may not be the most essential primary therapy for this patient. start VPA 2 grams at bedtime, for mood stabilization. T/C addition of alternate anti-psychotic, such as abilify, as indicated and if VPA alone is inadequate to control Sx. medical consult for DM mgmt. 06/22: refusing depakote. splitting. Dx cast into doubt. pt stated he quit his job recently because in order to keep his SSDI he can only work for 9 months, and it was about 9 months, so he had to quit. offer VPA 500 QID for clarity of intent. Reason for continued inpatient stay Substantial Risk for: inability to function Time Spent With Patient Time: Total time managing care of this patient today __35__ minutes.
[2024-06-22 17:08] LABS: Glucose, Whole Blood 397 mg/dL (60-115)
[2024-06-22] MEDS: Divalproex Sodium ER 500 MG TAB.ER.24H PO ×2 (17:22→22:37)
[2024-06-22 20:00] VITALS: BP 130/82; PULSE 100; RESP 16; TEMP 36.6; O2SAT 97
--- NOTE | 2024-06-22 21:43 | PC.NURSE ---
Pt was paranoid when RN was doing the POC. He refused POC @2030, states you are not using my original wrist band and he brought out ED wrist band from his pocket. I will call my linoleum layer helper b/c I think you want to implicate me and make me to stay longer here . He got agitated and irritable, he picked up the phone and called his linoleum layer helper. Pt later told RN, I am ready for the blood sugar now .
[2024-06-22 22:21] LABS: Glucose, Whole Blood 359 mg/dL (60-115)
[2024-06-22] MEDS: Insulin Glargine,Hum.rec.anlog 100 UNIT/ML 10 ML VIAL 6 UNIT SUBCUT (22:37)
[2024-06-23 01:16] LABS: Glucose, Whole Blood 269 mg/dL (60-115)
--- NOTE | 2024-06-23 01:28 | PC.NURSE ---
Pt was very irritable, coughing loud and yelling, I need to go to ED and have my stomach pump out . He requested for his blood sugar to be checked, POC is 259@0115. Pt c/o vomiting and diarrhoea but declined to take any Meds. You are just a damn nurse, I need to go to the ED, somebody call 911 now . He requested to take a shower, refused v/s and physical/abdominal examination.
[2024-06-23] MEDS: Magnesium Hydrox/Alum Hydrox 30 ML ORAL.SUSP PO ×2 (05:00→10:18)
[2024-06-23 07:45] LABS: Glucose, Whole Blood 417 mg/dL (60-115)
[2024-06-23 07:49] VITALS: BP 156/94; PULSE 113; RESP 16; TEMP 36.1; O2SAT 96
[2024-06-23] MEDS: Insulin Lispro 100 UNIT/ML 3 ML VIAL SUBCUT ×7 (08:38→22:18)
[2024-06-23] MEDS: Insulin Glargine,Hum.rec.anlog 100 UNIT/ML 10 ML VIAL 40 UNIT SUBCUT (08:38)
[2024-06-23] MEDS: Divalproex Sodium ER 500 MG TAB.ER.24H PO (08:39)
[2024-06-23 10:02] LABS: Venous Blood Gas Refer to POC result
[2024-06-23 10:03] LABS: VBG Base Excess 0.6 mmol/L; VBG HCO3 25 mmol/L (22-26); VBG pCO2 41 mmHg; VBG pH 7.39 (7.32-7.43); VBG pO2 74 mmHg
[2024-06-23 10:16] LABS: Beta-Hydroxybutyrate 1.19 mmol/L (0.02-0.27)
[2024-06-23 10:24] LABS: Anion Gap 16 (12-20); Blood Urea Nitrogen 14 mg/dL (9-16); Calcium 9.4 mg/dL (8.4-10.2); Carbon Dioxide 24 mmol/L (22-29); Chloride 99 mmol/L (96-108); Creatinine Clr Calc Pharmacy 181.6; Estimated Glomerular Filt Rate > 60; Glucose Random 464 mg/dL (60-115); Potassium 4.6 mmol/L (3.3-5.1); Sodium 134 mmol/L (135-145)
[2024-06-23 12:09] LABS: Glucose, Whole Blood 434 mg/dL (60-115)
[2024-06-23] MEDS: Omeprazole 40 MG CAPSULE.DR PO (13:52)
[2024-06-23 16:49] LABS: Glucose, Whole Blood 239 mg/dL (60-115)
--- NOTE | 2024-06-23 18:39 | HO.PSYCHPN ---
Subjective Subjective Date of Service: 06/23/24 Reason For Visit: Emotional dysregulation Interim History: c/o indigestion, agreeable to take omeprazole. no other complaints or requests. per staff, taking some medication. loud, disparaging to staff. irritable, labile, agitated. c/o vomiting, not witnessed by staff. slept about 2 hours only. Mental Status Exam Mental Status Exam Narrative: A&O. Obese, wearing own attire, adequate hygiene. Good eye contact, attentive. No Tics or Tremors. No abnormal involuntary movements. Calm, cooperative, engaged. incr rate and amount of speech, nml prosody and loudness, decr latency. No prolonged speech latency or dysarthria. Mood not assessed, affect is euthymic. no SI/HI/AVH expressed. Thoughts are coherent, organized. No known cognitive or memory impairment. Insight/ Judgment impaired. Diagnostics Vital Signs (24Hr): Vital Signs - 24 hr 06/22/24 20:00 06/23/24 07:49 Temperature 98 F 97.0 F Pulse Rate 100 113 H Respiratory Rate 16 16 Blood Pressure 130/82 156/94 H Pulse Oximetry 97 96 Oxygen Delivery Method Room Air Room Air BMI result Body Mass Index 58.4 Labs 06/19/24 20:43 06/23/24 09:49 Labs: Laboratory Results - last 48 hr 06/21/24 06/22/24 06/22/24 20:09 07:42 08:26 VBG pH VBG pCO2 VBG pO2 VBG HCO3 VBG O2 Saturation VBG Base Excess Sodium Potassium Chloride Carbon Dioxide Anion Gap BUN Creatinine Estim Creat Clear Calc Estimated GFR POC Glucose 410 H* 344 H Random Glucose Calcium Triglycerides 561 H Cholesterol 196 LDL Cholesterol, Calc TNP HDL Cholesterol 30 L Beta-Hydroxybutyrate 06/22/24 06/22/24 06/22/24 11:45 17:04 22:16 VBG pH VBG pCO2 VBG pO2 VBG HCO3 VBG O2 Saturation VBG Base Excess Sodium Potassium Chloride Carbon Dioxide Anion Gap BUN Creatinine Estim Creat Clear Calc Estimated GFR POC Glucose 435 H* 397 H* 359 H* Random Glucose Calcium Triglycerides Cholesterol LDL Cholesterol, Calc HDL Cholesterol Beta-Hydroxybutyrate 06/23/24 06/23/24 06/23/24 01:11 07:24 09:49 VBG pH VBG pCO2 VBG pO2 VBG HCO3 VBG O2 Saturation VBG Base Excess Sodium 134 L Potassium 4.6 Chloride 99 Carbon Dioxide 24 Anion Gap 16 BUN 14 Creatinine 0.81 Estim Creat Clear Calc 181.6 Estimated GFR > 60 POC Glucose 269 H 417 H* Random Glucose 464 H* Calcium 9.4 Triglycerides Cholesterol LDL Cholesterol, Calc HDL Cholesterol Beta-Hydroxybutyrate 1.19 H 06/23/24 06/23/24 06/23/24 09:57 11:58 16:39 VBG pH 7.39 VBG pCO2 41 VBG pO2 74 VBG HCO3 25 VBG O2 Saturation 96.0 VBG Base Excess 0.6 Sodium Potassium Chloride Carbon Dioxide Anion Gap BUN Creatinine Estim Creat Clear Calc Estimated GFR POC Glucose 434 H* 239 H Random Glucose Calcium Triglycerides Cholesterol LDL Cholesterol, Calc HDL Cholesterol Beta-Hydroxybutyrate Medications Medications Current Medications Acetaminophen (Acetaminophen 325 Mg Tablet) 650 mg PO Q6H PRN PRN Reason: Headache/Pain, Scale 1-10 Al Hydroxide/Mg Hydroxide (Magnesium Hydrox/Alum Hydrox 30 Ml Oral.Susp) 30 ml PO Q6H PRN PRN Reason: Heartburn/Nausea Last Admin: 06/23/24 10:18 Dose: 30 ml Dextrose (Dextrose 50 % 25 Gm/50 Ml Syringe) 25 gm IVPUSH Q15M PRN; Protocol PRN Reason: per Hypoglycemia Standing Ord. Divalproex Sodium (Divalproex Sodium Er 500 Mg Tab.Er.24h) 1,000 mg PO BID [facility] Glucose (Glucose Gel 15 Gm Gel..Gram.) 15 gm PO Q15M PRN; Protocol PRN Reason: per Hypoglycemia Standing Ord. Glucose (Glucose Gel 15 Gm Gel..Gram.) 15 gm PO Q15M PRN; Protocol PRN Reason: per Hypoglycemia Standing Ord. Hydroxyzine HCl (Hydroxyzine Hcl 50 Mg Tablet) 50 mg PO Q6H PRN PRN Reason: mild anxiety Last Admin: 06/21/24 17:28 Dose: 50 mg Insulin Glargine (Insulin Glargine,Hum.Rec.Anlog 100 Unit/Ml 10 Ml Vial) 40 unit SUBCUT DAILY [facility] Last Admin: 06/23/24 08:38 Dose: 40 unit Insulin Human Lispro (Insulin Lispro 100 Unit/Ml 3 Ml Vial) 0 unit SUBCUT QIDACHS [facility]; Protocol Last Admin: 06/23/24 17:10 Dose: 12 unit Insulin Human Lispro (Insulin Lispro 100 Unit/Ml 3 Ml Vial) 5 unit SUBCUT QIDACHS [facility] Last Admin: 06/23/24 17:09 Dose: 5 unit Magnesium Hydroxide (Milk Of Magnesia 30 Ml Oral.Susp) 30 ml PO DAILY PRN PRN Reason: Constipation Nicotine (Nicotine 21 Mg Patch.Td24) 21 mg TRANSDERMA DAILY [facility] Last Admin: 06/23/24 08:42 Dose: Not Given Nicotine Polacrilex (Nicotine Polacrilex 2 Mg Gum) 4 mg BUCCAL Q2H PRN PRN Reason: Nicotine Cravings Pat Own Med ( Dulaglutide [ Trulicity] 0.75 Mg/0 .5 Ml Pen Injector) 0.75 mg SUBCUT MO [facility] Last Admin: 06/20/24 20:57 Dose: 0.75 mg Olanzapine (Olanzapine 5 Mg Tablet) 5 mg PO Q4H PRN PRN Reason: agitation/psychosis Last Admin: 06/21/24 17:28 Dose: 5 mg Omeprazole (Omeprazole 40 Mg Capsule.Dr) 40 mg PO DAILY@0630 [facility] Last Admin: 06/23/24 13:52 Dose: 40 mg Trazodone HCl (Trazodone Hcl 50 Mg Tablet) 50 mg PO BEDTIME MRX1 PRN PRN Reason: Insomnia Allergies Allergies Allergy/AdvReac Type Severity Reaction Status Date / Time metformin Allergy Nausea and Verified 06/19/24 20:28 Vomiting Sulfa (Sulfonamide AdvReac Mild BURNING EAR Verified 06/19/24 20:28 Antibiotics) [SULFA (SULFONAMIDE ANTIBIOTICS)] Apples Allergy Unknown Itching Uncoded 06/19/24 20:28 Assessment & Plan Assessment & Plan (1) Bipolar II disorder: Status: Acute Code(s): F31.81 - Bipolar II disorder (2) Diabetes mellitus: Status: Acute Code(s): E11.9 - Type 2 diabetes mellitus without complications Plan 06/21: D/C latuda, which causes sialorrhea and may not be the most essential primary therapy for this patient. start VPA 2 grams at bedtime, for mood stabilization. T/C addition of alternate anti-psychotic, such as abilify, as indicated and if VPA alone is inadequate to control Sx. medical consult for DM mgmt. 06/22: refusing depakote. splitting. Dx cast into doubt. pt stated he quit his job recently because in order to keep his SSDI he can only work for 9 months, and it was about 9 months, so he had to quit. offer VPA 500 QID for clarity of intent. 06/23: taking some doses of VPA. some decrease in ebullience noted in the past 24H. did sleep only 2 hours overnight. c/o indigestion, agreeable to take omeprazole. consolidate VPA into BID dosing instead of QID dosing for ease of administration. Reason for continued inpatient stay Substantial Risk for: inability to function Time Spent With Patient Time: Total time managing care of this patient today __25__ minutes.
[2024-06-23 20:00] VITALS: BP 139/82; PULSE 128; RESP 18; TEMP 36.3; O2SAT 95
[2024-06-23 20:01] LABS: Glucose, Whole Blood 140 mg/dL (60-115)
[2024-06-24] MEDS: Omeprazole 40 MG CAPSULE.DR PO (06:40)
[2024-06-24 07:05] VITALS: BP 131/83; PULSE 97; RESP 14; TEMP 36.2; O2SAT 98
[2024-06-24 07:40] LABS: Glucose, Whole Blood 294 mg/dL (60-115)
[2024-06-24] MEDS: Insulin Lispro 100 UNIT/ML 3 ML VIAL SUBCUT ×8 (08:37→22:44)
[2024-06-24] MEDS: Insulin Glargine,Hum.rec.anlog 100 UNIT/ML 10 ML VIAL 40 UNIT SUBCUT (08:38)
[2024-06-24] MEDS: Divalproex Sodium ER 500 MG TAB.ER.24H 1000 MG PO (08:49)
[2024-06-24 11:55] LABS: Glucose, Whole Blood 235 mg/dL (60-115)
[2024-06-24] MEDS: LORazepam 1 MG TABLET 2 MG PO (14:38)
[2024-06-24] MEDS: chlorproMAZINE HCl 100 MG TABLET PO (14:38)
--- NOTE | 2024-06-24 15:45 | HO.PSYCHPN ---
Subjective Subjective Date of Service: 06/24/24 Reason For Visit: Emotional dysregulation Interim History: calm and cooperative in the morning. reported GERD Sx resolved with omeprazole, asking for once daily dosing of VPA, which was accommodated. reports he slept well overnight. later in the day got into an altercation with peer, overturned table and threw chairs, spat on peer. paranoid delusions. agreed, reluctantly, to PO medication. aware of 3-day being up 06/28. per staff, mild anx/dep. refused VPA eves. took only 500 mg this morning. slept 8 hours. Mental Status Exam Mental Status Exam Narrative: A&O. Obese, wearing own attire, adequate hygiene. Good eye contact, attentive. No Tics or Tremors. No abnormal involuntary movements. Calm, cooperative, engaged; later agitated, aggressive. incr rate and amount of speech, nml prosody and loudness, decr latency. No prolonged speech latency or dysarthria. Mood good; affect is euthymic and later angry. no SI/HI/AVH expressed. Thoughts are coherent, organized, with paranoid delusions of nursing staff development coordinator playing head games with him re meds, giving him the wrong meds. No known cognitive or memory impairment. Insight/ Judgment impaired. Diagnostics Vital Signs (24Hr): Vital Signs - 24 hr 06/23/24 20:00 06/24/24 07:05 Temperature 97.4 F 97.2 F Pulse Rate 128 H 97 Respiratory Rate 18 14 Blood Pressure 139/82 131/83 Pulse Oximetry 95 98 Oxygen Delivery Method Room Air Room Air BMI result Body Mass Index 58.4 Labs 06/19/24 20:43 06/23/24 09:49 Labs: Laboratory Results - last 48 hr 06/22/24 06/22/24 06/23/24 17:04 22:16 01:11 VBG pH VBG pCO2 VBG pO2 VBG HCO3 VBG O2 Saturation VBG Base Excess Sodium Potassium Chloride Carbon Dioxide Anion Gap BUN Creatinine Estim Creat Clear Calc Estimated GFR POC Glucose 397 H* 359 H* 269 H Random Glucose Calcium Beta-Hydroxybutyrate 06/23/24 06/23/24 06/23/24 07:24 09:49 09:57 VBG pH 7.39 VBG pCO2 41 VBG pO2 74 VBG HCO3 25 VBG O2 Saturation 96.0 VBG Base Excess 0.6 Sodium 134 L Potassium 4.6 Chloride 99 Carbon Dioxide 24 Anion Gap 16 BUN 14 Creatinine 0.81 Estim Creat Clear Calc 181.6 Estimated GFR > 60 POC Glucose 417 H* Random Glucose 464 H* Calcium 9.4 Beta-Hydroxybutyrate 1.19 H 06/23/24 06/23/24 06/23/24 11:58 16:39 19:57 VBG pH VBG pCO2 VBG pO2 VBG HCO3 VBG O2 Saturation VBG Base Excess Sodium Potassium Chloride Carbon Dioxide Anion Gap BUN Creatinine Estim Creat Clear Calc Estimated GFR POC Glucose 434 H* 239 H 140 H Random Glucose Calcium Beta-Hydroxybutyrate 06/24/24 06/24/24 07:24 11:45 VBG pH VBG pCO2 VBG pO2 VBG HCO3 VBG O2 Saturation VBG Base Excess Sodium Potassium Chloride Carbon Dioxide Anion Gap BUN Creatinine Estim Creat Clear Calc Estimated GFR POC Glucose 294 H 235 H Random Glucose Calcium Beta-Hydroxybutyrate Medications Medications Current Medications Acetaminophen (Acetaminophen 325 Mg Tablet) 650 mg PO Q6H PRN PRN Reason: Headache/Pain, Scale 1-10 Al Hydroxide/Mg Hydroxide (Magnesium Hydrox/Alum Hydrox 30 Ml Oral.Susp) 30 ml PO Q6H PRN PRN Reason: Heartburn/Nausea Last Admin: 06/23/24 10:18 Dose: 30 ml Dextrose (Dextrose 50 % 25 Gm/50 Ml Syringe) 25 gm IVPUSH Q15M PRN; Protocol PRN Reason: per Hypoglycemia Standing Ord. Divalproex Sodium (Divalproex Sodium Er 500 Mg Tab.Er.24h) 2,000 mg PO DAILY [facility] Glucose (Glucose Gel 15 Gm Gel..Gram.) 15 gm PO Q15M PRN; Protocol PRN Reason: per Hypoglycemia Standing Ord. Glucose (Glucose Gel 15 Gm Gel..Gram.) 15 gm PO Q15M PRN; Protocol PRN Reason: per Hypoglycemia Standing Ord. Hydroxyzine HCl (Hydroxyzine Hcl 50 Mg Tablet) 50 mg PO Q6H PRN PRN Reason: mild anxiety Last Admin: 06/21/24 17:28 Dose: 50 mg Insulin Glargine (Insulin Glargine,Hum.Rec.Anlog 100 Unit/Ml 10 Ml Vial) 40 unit SUBCUT DAILY [facility] Last Admin: 06/24/24 08:38 Dose: 40 unit Insulin Human Lispro (Insulin Lispro 100 Unit/Ml 3 Ml Vial) 0 unit SUBCUT QIDACHS [facility]; Protocol Last Admin: 06/24/24 11:57 Dose: 12 unit Insulin Human Lispro (Insulin Lispro 100 Unit/Ml 3 Ml Vial) 5 unit SUBCUT QIDACHS [facility] Last Admin: 06/24/24 11:56 Dose: 5 unit Magnesium Hydroxide (Milk Of Magnesia 30 Ml Oral.Susp) 30 ml PO DAILY PRN PRN Reason: Constipation Nicotine (Nicotine 21 Mg Patch.Td24) 21 mg TRANSDERMA DAILY [facility] Last Admin: 06/24/24 08:41 Dose: Not Given Nicotine Polacrilex (Nicotine Polacrilex 2 Mg Gum) 4 mg BUCCAL Q2H PRN PRN Reason: Nicotine Cravings Pat Own Med ( Dulaglutide [ Trulicity] 0.75 Mg/0 .5 Ml Pen Injector) 0.75 mg SUBCUT MO [facility] Last Admin: 06/20/24 20:57 Dose: 0.75 mg Olanzapine (Olanzapine 5 Mg Tablet) 5 mg PO Q4H PRN PRN Reason: agitation/psychosis Last Admin: 06/21/24 17:28 Dose: 5 mg Omeprazole (Omeprazole 40 Mg Capsule.Dr) 40 mg PO DAILY@0630 [facility] Last Admin: 06/24/24 06:40 Dose: 40 mg Trazodone HCl (Trazodone Hcl 50 Mg Tablet) 50 mg PO BEDTIME MRX1 PRN PRN Reason: Insomnia Allergies Allergies Allergy/AdvReac Type Severity Reaction Status Date / Time metformin Allergy Nausea and Verified 06/19/24 20:28 Vomiting Sulfa (Sulfonamide AdvReac Mild BURNING EAR Verified 06/19/24 20:28 Antibiotics) [SULFA (SULFONAMIDE ANTIBIOTICS)] Apples Allergy Unknown Itching Uncoded 06/19/24 20:28 Assessment & Plan Assessment & Plan (1) Bipolar II disorder: Status: Acute Code(s): F31.81 - Bipolar II disorder (2) Diabetes mellitus: Status: Acute Code(s): E11.9 - Type 2 diabetes mellitus without complications Plan 06/21: D/C latuda, which causes sialorrhea and may not be the most essential primary therapy for this patient. start VPA 2 grams at bedtime, for mood stabilization. T/C addition of alternate anti-psychotic, such as abilify, as indicated and if VPA alone is inadequate to control Sx. medical consult for DM mgmt. 06/22: refusing depakote. splitting. Dx cast into doubt. pt stated he quit his job recently because in order to keep his SSDI he can only work for 9 months, and it was about 9 months, so he had to quit. offer VPA 500 QID for clarity of intent. 06/23: taking some doses of VPA. some decrease in ebullience noted in the past 24H. did sleep only 2 hours overnight. c/o indigestion, agreeable to take omeprazole. consolidate VPA into BID dosing instead of QID dosing for ease of administration. 06/24: agitated, aggressive. spat on peer, threw chairs, overturned table. paranoid delusions peer and nursing staff development coordinator playing games with him and disrespecting him. took thorazine 100 and ativan 2 PO. add haldol 5 mg daily to regimen. Reason for continued inpatient stay Substantial Risk for: harm to self, harm to others and inability to function Time Spent With Patient Time: Total time managing care of this patient today _45___ minutes.
[2024-06-24 17:00] LABS: Glucose, Whole Blood 333 mg/dL (60-115)
[2024-06-24 20:00] VITALS: RESP 16
[2024-06-24 22:41] LABS: Glucose, Whole Blood 323 mg/dL (60-115)
[2024-06-25] MEDS: Omeprazole 40 MG CAPSULE.DR PO (06:50)
[2024-06-25 07:37] LABS: Glucose, Whole Blood 385 mg/dL (60-115)
[2024-06-25 08:00] VITALS: BP 150/89; PULSE 112; RESP 16; TEMP 36.4; O2SAT 97
[2024-06-25] MEDS: Insulin Lispro 100 UNIT/ML 3 ML VIAL SUBCUT ×8 (08:13→20:45)
[2024-06-25] MEDS: Insulin Glargine,Hum.rec.anlog 100 UNIT/ML 10 ML VIAL 40 UNIT SUBCUT (08:14)
[2024-06-25] MEDS: Divalproex Sodium ER 500 MG TAB.ER.24H 2000 MG PO (08:19)
[2024-06-25] MEDS: HaloperidoL 5 MG TABLET PO (08:19)
[2024-06-25] MEDS: Magnesium Hydrox/Alum Hydrox 30 ML ORAL.SUSP PO (09:32)
[2024-06-25] MEDS: OLANZapine 5 MG TABLET PO (09:38)
--- NOTE | 2024-06-25 10:00 | P.PNPSI_ITS ---
Subjective Subjective Date of Service: 06/25/24 Reason For Visit: Emotional dysregulation Subjective Notes: Conditional Voluntary and 3 Day Interim History: Patient was seen and discussed in rounds today. Records and plans were reviewed. He continues to be somewhat irritable but no incidence as of yet. Took only half of his Depakote. Was a little confrontational last evening. Eating and sleeping adequately. This morning he requested Thorazine and Ativan which he received yesterday but was amenable to taking the p.r.n. Zyprexa for now. We may consider switching the p.r.n. Zyprexa to chlorpromazine. Review of Systems Review of Systems Yes all other systems are reviewed and are negative Mental Status Exam Mental Status Exam Narrative: In today's visit he is alert, oriented and interactive. Normal speech. Little eye contact. Affect is constricted and a little irritable. No acute signs of psychosis. Some delusions reported. Some paranoia reported. No active SI. Cognitively is grossly intact. Judgment reported as impaired. Mobility was not assessed. Diagnostics Vital Signs (24Hr): Vital Signs - 24 hr 06/24/24 20:00 06/25/24 08:00 Temperature 97.5 F Pulse Rate 112 H Respiratory Rate 16 16 Blood Pressure 150/89 H Pulse Oximetry 97 Oxygen Delivery Method Room Air BMI result Body Mass Index 58.4 Labs 06/19/24 20:43 06/23/24 09:49 Labs: Laboratory Results - last 48 hr 06/23/24 06/23/24 06/23/24 09:49 09:57 11:58 VBG pH 7.39 VBG pCO2 41 VBG pO2 74 VBG HCO3 25 VBG O2 Saturation 96.0 VBG Base Excess 0.6 Sodium 134 L Potassium 4.6 Chloride 99 Carbon Dioxide 24 Anion Gap 16 BUN 14 Creatinine 0.81 Estim Creat Clear Calc 181.6 Estimated GFR > 60 POC Glucose 434 H* Random Glucose 464 H* Calcium 9.4 Beta-Hydroxybutyrate 1.19 H 06/23/24 06/23/24 06/24/24 16:39 19:57 07:24 VBG pH VBG pCO2 VBG pO2 VBG HCO3 VBG O2 Saturation VBG Base Excess Sodium Potassium Chloride Carbon Dioxide Anion Gap BUN Creatinine Estim Creat Clear Calc Estimated GFR POC Glucose 239 H 140 H 294 H Random Glucose Calcium Beta-Hydroxybutyrate 06/24/24 06/24/24 06/24/24 11:45 16:53 22:33 VBG pH VBG pCO2 VBG pO2 VBG HCO3 VBG O2 Saturation VBG Base Excess Sodium Potassium Chloride Carbon Dioxide Anion Gap BUN Creatinine Estim Creat Clear Calc Estimated GFR POC Glucose 235 H 333 H 323 H Random Glucose Calcium Beta-Hydroxybutyrate 06/25/24 07:32 VBG pH VBG pCO2 VBG pO2 VBG HCO3 VBG O2 Saturation VBG Base Excess Sodium Potassium Chloride Carbon Dioxide Anion Gap BUN Creatinine Estim Creat Clear Calc Estimated GFR POC Glucose 385 H* Random Glucose Calcium Beta-Hydroxybutyrate Medications Medications Current Medications Acetaminophen (Acetaminophen 325 Mg Tablet) 650 mg PO Q6H PRN PRN Reason: Headache/Pain, Scale 1-10 Al Hydroxide/Mg Hydroxide (Magnesium Hydrox/Alum Hydrox 30 Ml Oral.Susp) 30 ml PO Q6H PRN PRN Reason: Heartburn/Nausea Last Admin: 06/25/24 09:32 Dose: 30 ml Dextrose (Dextrose 50 % 25 Gm/50 Ml Syringe) 25 gm IVPUSH Q15M PRN; Protocol PRN Reason: per Hypoglycemia Standing Ord. Divalproex Sodium (Divalproex Sodium Er 500 Mg Tab.Er.24h) 2,000 mg PO DAILY [facility] Last Admin: 06/25/24 08:19 Dose: 500 mg Glucose (Glucose Gel 15 Gm Gel..Gram.) 15 gm PO Q15M PRN; Protocol PRN Reason: per Hypoglycemia Standing Ord. Glucose (Glucose Gel 15 Gm Gel..Gram.) 15 gm PO Q15M PRN; Protocol PRN Reason: per Hypoglycemia Standing Ord. Haloperidol (Haloperidol 5 Mg Tablet) 5 mg PO DAILY [facility] Last Admin: 06/25/24 08:19 Dose: 5 mg Hydroxyzine HCl (Hydroxyzine Hcl 50 Mg Tablet) 50 mg PO Q6H PRN PRN Reason: mild anxiety Last Admin: 06/21/24 17:28 Dose: 50 mg Insulin Glargine (Insulin Glargine,Hum.Rec.Anlog 100 Unit/Ml 10 Ml Vial) 40 unit SUBCUT DAILY [facility] Last Admin: 06/25/24 08:14 Dose: 40 unit Insulin Human Lispro (Insulin Lispro 100 Unit/Ml 3 Ml Vial) 0 unit SUBCUT QIDACHS [facility]; Protocol Last Admin: 06/25/24 08:13 Dose: 25 unit Insulin Human Lispro (Insulin Lispro 100 Unit/Ml 3 Ml Vial) 5 unit SUBCUT QIDACHS [facility] Last Admin: 06/25/24 08:13 Dose: 5 unit Magnesium Hydroxide (Milk Of Magnesia 30 Ml Oral.Susp) 30 ml PO DAILY PRN PRN Reason: Constipation Nicotine (Nicotine 21 Mg Patch.Td24) 21 mg TRANSDERMA DAILY [facility] Last Admin: 06/25/24 08:19 Dose: Not Given Nicotine Polacrilex (Nicotine Polacrilex 2 Mg Gum) 4 mg BUCCAL Q2H PRN PRN Reason: Nicotine Cravings Pat Own Med ( Dulaglutide [ Trulicity] 0.75 Mg/0 .5 Ml Pen Injector) 0.75 mg SUBCUT MO [facility] Last Admin: 06/20/24 20:57 Dose: 0.75 mg Olanzapine (Olanzapine 5 Mg Tablet) 5 mg PO Q4H PRN PRN Reason: agitation/psychosis Last Admin: 06/25/24 09:38 Dose: 5 mg Omeprazole (Omeprazole 40 Mg Capsule.Dr) 40 mg PO DAILY@0630 [facility] Last Admin: 06/25/24 06:50 Dose: 40 mg Trazodone HCl (Trazodone Hcl 50 Mg Tablet) 50 mg PO BEDTIME MRX1 PRN PRN Reason: Insomnia Allergies Allergies Allergy/AdvReac Type Severity Reaction Status Date / Time metformin Allergy Nausea and Verified 06/19/24 20:28 Vomiting Sulfa (Sulfonamide AdvReac Mild BURNING EAR Verified 06/19/24 20:28 Antibiotics) [SULFA (SULFONAMIDE ANTIBIOTICS)] Apples Allergy Unknown Itching Uncoded 06/19/24 20:28 Assessment & Plan Assessment & Plan (1) Bipolar II disorder: Status: Acute Code(s): F31.81 - Bipolar II disorder (2) Diabetes mellitus: Status: Acute Code(s): E11.9 - Type 2 diabetes mellitus without complications Plan 06/21: D/C latuda, which causes sialorrhea and may not be the most essential primary therapy for this patient. start VPA 2 grams at bedtime, for mood stabilization. T/C addition of alternate anti-psychotic, such as abilify, as indicated and if VPA alone is inadequate to control Sx. medical consult for DM mgmt. 06/22: refusing depakote. splitting. Dx cast into doubt. pt stated he quit his job recently because in order to keep his SSDI he can only work for 9 months, and it was about 9 months, so he had to quit. offer VPA 500 QID for clarity of intent. 06/23: taking some doses of VPA. some decrease in ebullience noted in the past 24H. did sleep only 2 hours overnight. c/o indigestion, agreeable to take omeprazole. consolidate VPA into BID dosing instead of QID dosing for ease of administration. 06/24: agitated, aggressive. spat on peer, threw chairs, overturned table. paranoid delusions peer and rn staff playing games with him and disrespecting him. took thorazine 100 and ativan 2 PO. add haldol 5 mg daily to regimen. 06/25: Continue current regimen and plans Reason for continued inpatient stay Substantial Risk for: med/psych decompensation Time Spent With Patient Time: Total time managing care of this patient today ____ minutes.
[2024-06-25 12:09] LABS: Glucose, Whole Blood 256 mg/dL (60-115)
--- NOTE | 2024-06-25 16:42 | PM.EVENT ---
Event Note Date of Service: 06/25/24 Event Note: Pt is a 33-year-old male with a past hx significant for insulin-dependent type 2 diabetes who was admitted to [facility]. Follow up for diabetes management. Patient's blood sugars remain poorly controlled with POC as high as 385 this morning. Will increase patient's Lantus and institute split dosing with 22 units in the morning and 22 units at night. Time Spent With Patient Time: Total time managing care of this patient today ____ minutes.
[2024-06-25 16:59] LABS: Glucose, Whole Blood 216 mg/dL (60-115)
[2024-06-25 20:00] VITALS: BP 138/88; PULSE 104; RESP 18; TEMP 36.3; O2SAT 97
[2024-06-25 20:08] LABS: Glucose, Whole Blood 290 mg/dL (60-115)
[2024-06-25] MEDS: Throat Lozenge, Medicated LOZENGE 1 LOZENGE MUCOUS MEM (20:32)
[2024-06-25] MEDS: Insulin Glargine,Hum.rec.anlog 100 UNIT/ML 10 ML VIAL SUBCUT (20:34)
[2024-06-26] MEDS: Omeprazole 40 MG CAPSULE.DR PO (05:39)
[2024-06-26 08:00] VITALS: BP 130/63; PULSE 98; RESP 14; TEMP 36.4; O2SAT 96
[2024-06-26 08:01] LABS: Glucose, Whole Blood 315 mg/dL (60-115)
[2024-06-26 08:01] LABS: Glucose, Whole Blood 348 mg/dL (60-115)
[2024-06-26] MEDS: Insulin Lispro 100 UNIT/ML 3 ML VIAL SUBCUT ×8 (08:05→20:52)
[2024-06-26] MEDS: HaloperidoL 5 MG TABLET PO (08:53)
--- NOTE | 2024-06-26 09:47 | PC.NURSE ---
Patient refused both his scheduled Depakote 2,000mg and his 22 units of Lantus this morning. Stated I feel better I don't want those pills, I hate taking them and I already had enough insulin this morning, I'm not taking more . This nurse attempted to educate the importance of his medications though patient continued to refuse both. Provider Jaciel Burkett notified in person.
--- NOTE | 2024-06-26 10:22 | P.PNPSI_ITS ---
Subjective Subjective Date of Service: 06/26/24 Reason For Visit: Emotional dysregulation Subjective Notes: Conditional Voluntary and 3 Day Interim History: Patient was seen and discussed in rounds today. Records and plans were reviewed. He continues to be very preoccupied with discharge and again we reviewed his 3 day status which expires on the . He is taking his medications selectively. Refused his Lantus and all of the Depakote today. I discussed with him that it is dangerous to stop the Depakote abruptly and that we could order the liquid form but he was not interested. No SI. No changes were made today Medication Compliance: Intermittent Review of Systems Review of Systems Yes all other systems are reviewed and are negative Mental Status Exam Mental Status Exam Narrative: In today's visit he is alert, oriented and interactive. Normal speech. Little eye contact. Affect is constricted and a little irritable. No acute signs of psychosis. Some delusions reported. Some paranoia reported. No active SI. Very little insight. Cognitively is grossly intact. Judgment is marginal. He is able to move all limbs. No abnormalities of gait. Diagnostics Vital Signs (24Hr): Vital Signs - 24 hr 06/25/24 20:00 06/26/24 08:00 Temperature 97.3 F 97.5 F Pulse Rate 104 H 98 Respiratory Rate 18 14 Blood Pressure 138/88 130/63 Pulse Oximetry 97 96 Oxygen Delivery Method Room Air Room Air BMI result Body Mass Index 58.4 Labs 06/19/24 20:43 06/23/24 09:49 Labs: Laboratory Results - last 48 hr 06/24/24 06/24/24 06/24/24 11:45 16:53 22:33 POC Glucose 235 H 333 H 323 H 06/25/24 06/25/24 06/25/24 07:32 12:00 16:51 POC Glucose 385 H* 256 H 216 H 06/25/24 06/26/24 06/26/24 20:04 07:50 07:52 POC Glucose 290 H 315 H 348 H Medications Medications Current Medications Acetaminophen (Acetaminophen 325 Mg Tablet) 650 mg PO Q6H PRN PRN Reason: Headache/Pain, Scale 1-10 Al Hydroxide/Mg Hydroxide (Magnesium Hydrox/Alum Hydrox 30 Ml Oral.Susp) 30 ml PO Q6H PRN PRN Reason: Heartburn/Nausea Last Admin: 06/25/24 09:32 Dose: 30 ml Benzocaine (Throat Lozenge, Medicated Lozenge) 1 lozenge MUCOUS MEM Q2H PRN PRN Reason: Sore Throat Last Admin: 06/25/24 20:32 Dose: 1 lozenge Dextrose (Dextrose 50 % 25 Gm/50 Ml Syringe) 25 gm IVPUSH Q15M PRN; Protocol PRN Reason: per Hypoglycemia Standing Ord. Divalproex Sodium (Divalproex Sodium Er 500 Mg Tab.Er.24h) 2,000 mg PO DAILY [facility] Last Admin: 06/26/24 09:23 Dose: Not Given Glucose (Glucose Gel 15 Gm Gel..Gram.) 15 gm PO Q15M PRN; Protocol PRN Reason: per Hypoglycemia Standing Ord. Glucose (Glucose Gel 15 Gm Gel..Gram.) 15 gm PO Q15M PRN; Protocol PRN Reason: per Hypoglycemia Standing Ord. Haloperidol (Haloperidol 5 Mg Tablet) 5 mg PO DAILY [facility] Last Admin: 06/26/24 08:53 Dose: 5 mg Hydroxyzine HCl (Hydroxyzine Hcl 50 Mg Tablet) 50 mg PO Q6H PRN PRN Reason: mild anxiety Last Admin: 06/21/24 17:28 Dose: 50 mg Insulin Glargine (Insulin Glargine,Hum.Rec.Anlog 100 Unit/Ml 10 Ml Vial) 22 unit SUBCUT DAILY [facility] Last Admin: 06/26/24 09:11 Dose: Not Given Insulin Glargine (Insulin Glargine,Hum.Rec.Anlog 100 Unit/Ml 10 Ml Vial) 22 unit SUBCUT BEDTIME [facility] Insulin Human Lispro (Insulin Lispro 100 Unit/Ml 3 Ml Vial) 0 unit SUBCUT QIDACHS [facility]; Protocol Last Admin: 06/26/24 08:05 Dose: 20 unit Insulin Human Lispro (Insulin Lispro 100 Unit/Ml 3 Ml Vial) 5 unit SUBCUT QIDACHS [facility] Last Admin: 06/26/24 08:12 Dose: 5 unit Magnesium Hydroxide (Milk Of Magnesia 30 Ml Oral.Susp) 30 ml PO DAILY PRN PRN Reason: Constipation Nicotine (Nicotine 21 Mg Patch.Td24) 21 mg TRANSDERMA DAILY [facility] Last Admin: 06/26/24 08:54 Dose: Not Given Nicotine Polacrilex (Nicotine Polacrilex 2 Mg Gum) 4 mg BUCCAL Q2H PRN PRN Reason: Nicotine Cravings Pat Own Med ( Dulaglutide [ Trulicity] 0.75 Mg/0 .5 Ml Pen Injector) 0.75 mg SUBCUT MO [facility] Last Admin: 06/20/24 20:57 Dose: 0.75 mg Olanzapine (Olanzapine 5 Mg Tablet) 5 mg PO Q4H PRN PRN Reason: agitation/psychosis Last Admin: 06/25/24 09:38 Dose: 5 mg Omeprazole (Omeprazole 40 Mg Capsule.) 40 mg PO DAILY@0630 [facility] Last Admin: 06/26/24 05:39 Dose: 40 mg Trazodone HCl (Trazodone Hcl 50 Mg Tablet) 50 mg PO BEDTIME MRX1 PRN PRN Reason: Insomnia Allergies Allergies Allergy/AdvReac Type Severity Reaction Status Date / Time metformin Allergy Nausea and Verified 06/19/24 20:28 Vomiting Sulfa (Sulfonamide AdvReac Mild BURNING EAR Verified 06/19/24 20:28 Antibiotics) [SULFA (SULFONAMIDE ANTIBIOTICS)] Apples Allergy Unknown Itching Uncoded 06/19/24 20:28 Assessment & Plan Assessment & Plan (1) Bipolar II disorder: Status: Acute Code(s): F31.81 - Bipolar II disorder (2) Diabetes mellitus: Status: Acute Code(s): E11.9 - Type 2 diabetes mellitus without complications Plan 06/21: D/C latuda, which causes sialorrhea and may not be the most essential primary therapy for this patient. start VPA 2 grams at bedtime, for mood stabilization. T/C addition of alternate anti-psychotic, such as abilify, as indicated and if VPA alone is inadequate to control Sx. medical consult for DM mgmt. 06/22: refusing depakote. splitting. Dx cast into doubt. pt stated he quit his job recently because in order to keep his SSDI he can only work for 9 months, and it was about 9 months, so he had to quit. offer VPA 500 QID for clarity of intent. 06/23: taking some doses of VPA. some decrease in ebullience noted in the past 24H. did sleep only 2 hours overnight. c/o indigestion, agreeable to take omeprazole. consolidate VPA into BID dosing instead of QID dosing for ease of administration. 06/24: agitated, aggressive. spat on peer, threw chairs, overturned table. paranoid delusions peer and staff antisubmarine officer playing games with him and disrespecting him. took thorazine 100 and ativan 2 PO. add haldol 5 mg daily to regimen. 06/25: Continue current regimen and plans 06/26: Continue current regimen and plans. Patient educated on: medication risk/benefits Reason for continued inpatient stay Substantial Risk for: med/psych decompensation Time Spent With Patient Time: Total time managing care of this patient today ____ minutes.
[2024-06-26 11:45] LABS: Glucose, Whole Blood 243 mg/dL (60-115)
[2024-06-26] MEDS: hydrOXYzine HCL 50 MG TABLET PO (16:01)
[2024-06-26 16:41] LABS: Glucose, Whole Blood 270 mg/dL (60-115)
[2024-06-26] MEDS: Throat Lozenge, Medicated LOZENGE 1 LOZENGE MUCOUS MEM (19:19)
[2024-06-26 20:00] VITALS: BP 102/76; PULSE 96; RESP 18; TEMP 36.3; O2SAT 94
[2024-06-26 20:23] LABS: Glucose, Whole Blood 242 mg/dL (60-115)
[2024-06-26] MEDS: Insulin Glargine,Hum.rec.anlog 100 UNIT/ML 10 ML VIAL 22 UNIT SUBCUT (20:38)
[2024-06-26] MEDS: OLANZapine 5 MG TABLET PO (20:43)
[2024-06-27] MEDS: Omeprazole 40 MG CAPSULE.DR PO (06:54)
[2024-06-27 08:00] VITALS: BP 135/86; PULSE 97; RESP 16; TEMP 36.3; O2SAT 99
[2024-06-27 08:14] LABS: Glucose, Whole Blood 232 mg/dL (60-115)
[2024-06-27] MEDS: HaloperidoL 5 MG TABLET PO (08:56)
[2024-06-27] MEDS: Insulin Glargine,Hum.rec.anlog 100 UNIT/ML 10 ML VIAL 22 UNIT SUBCUT ×2 (08:58→20:44)
[2024-06-27] MEDS: Insulin Lispro 100 UNIT/ML 3 ML VIAL SUBCUT ×8 (08:58→21:09)
--- NOTE | 2024-06-27 09:45 | HO.PSYCHPN ---
Subjective Subjective Date of Service: 06/27/24 Reason For Visit: Emotional dysregulation Subjective Notes: Conditional Voluntary and 3 Day Interim History: Patient was seen and discussed in rounds today. Records and plans were reviewed. He has been stable on the unit with no behavioral issues but is preoccupied with discharge. Taking medications selectively not taking Lantus and Depakote. Last evening he had an episode of petite mal which did not last long but was seen. He denies having history of seizures but a neurology referral at discharge may be advisable. I did explain to him that the Depakote would be helpful with that also but he still does not want to take it in the pill or the liquid form, as he had complained about the size of the Depakote previously. No SI Medication Compliance: Intermittent Review of Systems Review of Systems Yes all other systems are reviewed and are negative Mental Status Exam Mental Status Exam Narrative: In today's visit he is alert, oriented and interactive. Normal speech. Little eye contact. Affect is constricted and a little irritable. No acute signs of psychosis. Some delusions reported. Some paranoia reported. No active SI. Very little insight. Cognitively is grossly intact. Judgment is marginal. He is able to move all limbs. No abnormalities of gait. Diagnostics Vital Signs (24Hr): Vital Signs - 24 hr 06/26/24 20:00 06/27/24 08:00 Temperature 97.3 F 97.4 F Pulse Rate 96 97 Respiratory Rate 18 16 Blood Pressure 102/76 135/86 Pulse Oximetry 94 99 Oxygen Delivery Method Room Air Room Air BMI result Body Mass Index 58.4 Labs 06/19/24 20:43 06/23/24 09:49 Labs: Laboratory Results - last 48 hr 06/25/24 06/25/24 06/25/24 12:00 16:51 20:04 POC Glucose 256 H 216 H 290 H 06/26/24 06/26/24 06/26/24 07:50 07:52 11:42 POC Glucose 315 H 348 H 243 H 06/26/24 06/26/24 06/27/24 16:34 20:18 07:56 POC Glucose 270 H 242 H 232 H Medications Medications Current Medications Acetaminophen (Acetaminophen 325 Mg Tablet) 650 mg PO Q6H PRN PRN Reason: Headache/Pain, Scale 1-10 Al Hydroxide/Mg Hydroxide (Magnesium Hydrox/Alum Hydrox 30 Ml Oral.Susp) 30 ml PO Q6H PRN PRN Reason: Heartburn/Nausea Last Admin: 06/25/24 09:32 Dose: 30 ml Benzocaine (Throat Lozenge, Medicated Lozenge) 1 lozenge MUCOUS MEM Q2H PRN PRN Reason: Sore Throat Last Admin: 06/26/24 19:19 Dose: 1 lozenge Dextrose (Dextrose 50 % 25 Gm/50 Ml Syringe) 25 gm IVPUSH Q15M PRN; Protocol PRN Reason: per Hypoglycemia Standing Ord. Divalproex Sodium (Divalproex Sodium Er 500 Mg Tab.Er.24h) 2,000 mg PO DAILY [facility] Last Admin: 06/27/24 08:59 Dose: Not Given Glucose (Glucose Gel 15 Gm Gel..Gram.) 15 gm PO Q15M PRN; Protocol PRN Reason: per Hypoglycemia Standing Ord. Glucose (Glucose Gel 15 Gm Gel..Gram.) 15 gm PO Q15M PRN; Protocol PRN Reason: per Hypoglycemia Standing Ord. Haloperidol (Haloperidol 5 Mg Tablet) 5 mg PO DAILY [facility] Last Admin: 06/27/24 08:56 Dose: 5 mg Hydroxyzine HCl (Hydroxyzine Hcl 50 Mg Tablet) 50 mg PO Q6H PRN PRN Reason: mild anxiety Last Admin: 06/26/24 16:01 Dose: 50 mg Insulin Glargine (Insulin Glargine,Hum.Rec.Anlog 100 Unit/Ml 10 Ml Vial) 22 unit SUBCUT DAILY [facility] Last Admin: 06/27/24 08:58 Dose: 22 unit Insulin Glargine (Insulin Glargine,Hum.Rec.Anlog 100 Unit/Ml 10 Ml Vial) 22 unit SUBCUT BEDTIME [facility] Last Admin: 06/26/24 20:38 Dose: 22 unit Insulin Human Lispro (Insulin Lispro 100 Unit/Ml 3 Ml Vial) 0 unit SUBCUT QIDACHS [facility]; Protocol Last Admin: 06/27/24 08:58 Dose: 12 unit Insulin Human Lispro (Insulin Lispro 100 Unit/Ml 3 Ml Vial) 5 unit SUBCUT QIDACHS [facility] Last Admin: 06/27/24 08:58 Dose: 5 unit Magnesium Hydroxide (Milk Of Magnesia 30 Ml Oral.Susp) 30 ml PO DAILY PRN PRN Reason: Constipation Nicotine (Nicotine 21 Mg Patch.Td24) 21 mg TRANSDERMA DAILY [facility] Last Admin: 06/27/24 08:56 Dose: Not Given Nicotine Polacrilex (Nicotine Polacrilex 2 Mg Gum) 4 mg BUCCAL Q2H PRN PRN Reason: Nicotine Cravings Pat Own Med ( Dulaglutide [ Trulicity] 0.75 Mg/0 .5 Ml Pen Injector) 0.75 mg SUBCUT MO [facility] Last Admin: 06/20/24 20:57 Dose: 0.75 mg Olanzapine (Olanzapine 5 Mg Tablet) 5 mg PO Q4H PRN PRN Reason: agitation/psychosis Last Admin: 06/26/24 20:43 Dose: 5 mg Omeprazole (Omeprazole 40 Mg Capsule.Dr) 40 mg PO DAILY@0630 [facility] Last Admin: 06/27/24 06:54 Dose: 40 mg Trazodone HCl (Trazodone Hcl 50 Mg Tablet) 50 mg PO BEDTIME MRX1 PRN PRN Reason: Insomnia Allergies Allergies Allergy/AdvReac Type Severity Reaction Status Date / Time metformin Allergy Nausea and Verified 06/19/24 20:28 Vomiting Sulfa (Sulfonamide AdvReac Mild BURNING EAR Verified 06/19/24 20:28 Antibiotics) [SULFA (SULFONAMIDE ANTIBIOTICS)] Apples Allergy Unknown Itching Uncoded 06/19/24 20:28 Assessment & Plan Assessment & Plan (1) Bipolar II disorder: Status: Acute Code(s): F31.81 - Bipolar II disorder (2) Diabetes mellitus: Status: Acute Code(s): E11.9 - Type 2 diabetes mellitus without complications Plan 06/21: D/C latuda, which causes sialorrhea and may not be the most essential primary therapy for this patient. start VPA 2 grams at bedtime, for mood stabilization. T/C addition of alternate anti-psychotic, such as abilify, as indicated and if VPA alone is inadequate to control Sx. medical consult for DM mgmt. 06/22: refusing depakote. splitting. Dx cast into doubt. pt stated he quit his job recently because in order to keep his SSDI he can only work for 9 months, and it was about 9 months, so he had to quit. offer VPA 500 QID for clarity of intent. 06/23: taking some doses of VPA. some decrease in ebullience noted in the past 24H. did sleep only 2 hours overnight. c/o indigestion, agreeable to take omeprazole. consolidate VPA into BID dosing instead of QID dosing for ease of administration. 06/24: agitated, aggressive. spat on peer, threw chairs, overturned table. paranoid delusions peer and air liaison and special staff playing games with him and disrespecting him. took thorazine 100 and ativan 2 PO. add haldol 5 mg daily to regimen. 06/25: Continue current regimen and plans 06/26: Continue current regimen and plans. 06/27: Continue current regimen and plans Patient educated on: medication risk/benefits Reason for continued inpatient stay Substantial Risk for: med/psych decompensation Time Spent With Patient Time: Total time managing care of this patient today ____ minutes.
--- NOTE | 2024-06-27 10:35 | P.CONGS_ITS ---
History of Present Illness Consult details Consult date: 06/27/24 Narrative: 33-year-old male with obesity, bipolar disorder, referred for hidradenitis. He was admitted on June 21, 2024 because of a manic episode. He has a long history of bipolar disorder and schizophrenia He describes having this bump on his back for over a year. He says this gets occasionally painful. He says he has had swollen glands in his groin in the past. Denies any drainage. Review of Systems 2 Constitutional: Constitutional: Denies chills and Denies fever(s) Cardiovascular: Cardiovascular: Denies chest pain Respiratory: Respiratory: Denies cough Gastrointestinal: Gastrointestinal: Denies abdominal pain Genitourinary: Genitourinary: Denies dysuria Psychiatric: Psychiatric: Reports mood swings PMFSH Past Medical History Medical History (Updated 06/27/24 @ 10:37 by Sin Manzo MD) Epidermal cyst Pre-op evaluation Bipolar II disorder Schizophrenia Morbid obesity with BMI of 70 and over, adult Obesity Hyperglycemia due to type 2 diabetes mellitus Anxiety Depression HTN (hypertension) Family History Family History Mother Diabetes Father Dialysis patient Hypertension Diabetes Sister Obesity Sister Obesity Sister No problems noted. Brother Diabetes Brother No problems noted. Brother No problems noted. Surgical History Surgical History History of placement of ear tubes Hx of tonsillectomy Social History Social History Household Members: Family Household Members Other:: sister Housing: Apartment Do you presently have visiting nurse or other home services: No Alcohol intake: current Alcohol intake frequency: a few times a month Alcohol type: hard liquor Patient Tobacco Use Status: Never used Tobacco Tobacco use type: Cigarette Cigarettes Per Day: 2 Smoked in Last 30 Days: Yes e-Cigarette/Vaping Use: Former Use Second Hand Smoke Exposure: No Use of substances other than those prescribed or required for medical reasons: Yes Substance Use Type: Marijuana Substance Use Frequency: Chronic Longstanding Last Used Substance: Just Prior to Admission Currently Displaying Signs/Symptoms of Drug Intoxication Withdrawal: No Any prior treatment program specific to substance use: No Have you been hit, kicked, punched, or otherwise hurt by someone within the past year? If so, by whom?: No Do you feel safe in your current relationship?: No Current Relationship Is there a partner from a previous relationship who is making you feel unsafe now?: No Are you made to feel afraid or neglected: No Advance Directives: Yes Advance Directives Information Provided: No Advance Directives on File: Yes Advance Directives Date on File: 05/18/23 Do you have thoughts of harming others: None Do you have a plan to hurt others: No Plan Recently lost weight without trying: No Nutrition Risks: No Nutritional Risk Poor oral hygiene: No service: No Current occupational status: employed Sexual orientation: Unable to collect Meds Allergies Allergy/AdvReac Type Severity Reaction Status Date / Time metformin Allergy Nausea and Verified 06/19/24 20:28 Vomiting Sulfa (Sulfonamide AdvReac Mild BURNING EAR Verified 06/19/24 20:28 Antibiotics) [SULFA (SULFONAMIDE ANTIBIOTICS)] Apples Allergy Unknown Itching Uncoded 06/19/24 20:28 Active Medications: Current Medications Acetaminophen (Acetaminophen 325 Mg Tablet) 650 mg PO Q6H PRN PRN Reason: Headache/Pain, Scale 1-10 Al Hydroxide/Mg Hydroxide (Magnesium Hydrox/Alum Hydrox 30 Ml Oral.Susp) 30 ml PO Q6H PRN PRN Reason: Heartburn/Nausea Last Admin: 06/25/24 09:32 Dose: 30 ml Benzocaine (Throat Lozenge, Medicated Lozenge) 1 lozenge MUCOUS MEM Q2H PRN PRN Reason: Sore Throat Last Admin: 06/26/24 19:19 Dose: 1 lozenge Dextrose (Dextrose 50 % 25 Gm/50 Ml Syringe) 25 gm IVPUSH Q15M PRN; Protocol PRN Reason: per Hypoglycemia Standing Ord. Divalproex Sodium (Divalproex Sodium Er 500 Mg Tab.Er.24h) 2,000 mg PO DAILY [facility] Last Admin: 06/27/24 08:59 Dose: Not Given Glucose (Glucose Gel 15 Gm Gel..Gram.) 15 gm PO Q15M PRN; Protocol PRN Reason: per Hypoglycemia Standing Ord. Glucose (Glucose Gel 15 Gm Gel..Gram.) 15 gm PO Q15M PRN; Protocol PRN Reason: per Hypoglycemia Standing Ord. Haloperidol (Haloperidol 5 Mg Tablet) 5 mg PO DAILY [facility] Last Admin: 06/27/24 08:56 Dose: 5 mg Hydroxyzine HCl (Hydroxyzine Hcl 50 Mg Tablet) 50 mg PO Q6H PRN PRN Reason: mild anxiety Last Admin: 06/26/24 16:01 Dose: 50 mg Insulin Glargine (Insulin Glargine,Hum.Rec.Anlog 100 Unit/Ml 10 Ml Vial) 22 unit SUBCUT DAILY [facility] Last Admin: 06/27/24 08:58 Dose: 22 unit Insulin Glargine (Insulin Glargine,Hum.Rec.Anlog 100 Unit/Ml 10 Ml Vial) 22 unit SUBCUT BEDTIME [facility] Last Admin: 06/26/24 20:38 Dose: 22 unit Insulin Human Lispro (Insulin Lispro 100 Unit/Ml 3 Ml Vial) 0 unit SUBCUT QIDACHS [facility]; Protocol Last Admin: 06/27/24 08:58 Dose: 12 unit Insulin Human Lispro (Insulin Lispro 100 Unit/Ml 3 Ml Vial) 5 unit SUBCUT QIDACHS [facility] Last Admin: 06/27/24 08:58 Dose: 5 unit Magnesium Hydroxide (Milk Of Magnesia 30 Ml Oral.Susp) 30 ml PO DAILY PRN PRN Reason: Constipation Nicotine (Nicotine 21 Mg Patch.Td24) 21 mg TRANSDERMA DAILY [facility] Last Admin: 06/27/24 08:56 Dose: Not Given Nicotine Polacrilex (Nicotine Polacrilex 2 Mg Gum) 4 mg BUCCAL Q2H PRN PRN Reason: Nicotine Cravings Pat Own Med ( Dulaglutide [ Trulicity] 0.75 Mg/0 .5 Ml Pen Injector) 0.75 mg SUBCUT MO [facility] Last Admin: 06/20/24 20:57 Dose: 0.75 mg Olanzapine (Olanzapine 5 Mg Tablet) 5 mg PO Q4H PRN PRN Reason: agitation/psychosis Last Admin: 06/26/24 20:43 Dose: 5 mg Omeprazole (Omeprazole 40 Mg Capsule.Dr) 40 mg PO DAILY@0630 [facility] Last Admin: 06/27/24 06:54 Dose: 40 mg Trazodone HCl (Trazodone Hcl 50 Mg Tablet) 50 mg PO BEDTIME MRX1 PRN PRN Reason: Insomnia Home Medications ?Medication ?Instructions ?Recorded ?Confirmed ?Last Taken ?Type dulaglutide 0.75 mg/0.5 mL 0.75 mg subcut MO 06/20/24 06/20/24 Unknown History subcutaneous pen injector (Trulicity) insulin glargine 100 unit/mL (3 32 unit subcut DAILY 06/20/24 06/20/24 Unknown History mL) subcutaneous pen (Lantus Solostar U-100 Insulin) insulin lispro 100 unit/mL 1 sliding scale dose subcut TID 06/20/24 06/20/24 Unknown History subcutaneous pen (Humalog KwikPen (U-100) Insulin) lurasidone 40 mg tablet 40 mg PO BEDTIME 06/20/24 06/20/24 Unknown History Physical Exam 2 Vital Signs: Vital Signs: Last Vital Signs Temp 97.4 F 06/27/24 08:00 Pulse 97 06/27/24 08:00 Resp 16 06/27/24 08:00 BP 135/86 06/27/24 08:00 Pulse Ox 99 06/27/24 08:00 O2 Del Method Room Air 06/27/24 08:00 BMI result Body Mass Index 58.4 Const: Other: Morbidly obese General: comfortable and no acute distress Resp: Effort & Inspection: normal respiratory effort Cardio: Rate: regular rate Back/Spine/Pelvis: Other: Small area of induration on the mid back, less than 2 cm, noninflamed, nontender currently, no discharge, no skin changes Results Labs 06/19/24 20:43 06/23/24 09:49 Labs: Abnormal lab results 06/26/24 06/26/24 06/26/24 Range/Units 11:42 16:34 20:18 POC Glucose 243 H 270 H 242 H (60-115) mg/dL 06/27/24 Range/Units 07:56 POC Glucose 232 H (60-115) mg/dL Urine 06/19/24 Range/Units 22:07 Urine Color Yellow Urine Appearance Clear Urine pH 5.5 (5.0-9.0) Ur Specific [place] >= 1.030 H (1.005-1.025) Urine Protein 30 (1+) H (Neg-Trace) mg/dL Urine Glucose (UA) >=1000 H (Negative) mg/dL All other labs normal. Assessment and Plan (1) Epidermal cyst: Status: Acute He has what appears to be an epidermal cyst on the back. He is currently noninflamed and nontender. There were no skin changes I told him that he can have this excised down the line if becomes symptomatic. He says he is currently is nontender. I told him that he can see me in the office once discharged to schedule for excision as an office procedure He is comfortable with this plan. He does not require antibiotics at this time. Warm compresses of the area may help. Procedures Date of Service Date of Service: 06/27/24
[2024-06-27] MEDS: hydrOXYzine HCL 50 MG TABLET PO (11:41)
[2024-06-27] MEDS: OLANZapine 5 MG TABLET PO ×2 (11:41→21:23)
[2024-06-27 11:59] LABS: Glucose, Whole Blood 295 mg/dL (60-115)
[2024-06-27 18:56] LABS: Glucose, Whole Blood 263 mg/dL (60-115)
[2024-06-27 20:00] VITALS: BP 135/79; PULSE 107; RESP 18; TEMP 36.4; O2SAT 96
[2024-06-27] MEDS: DULAGLUTIDE 0.75 MG/0.5 ML 0.75 EACH SUBCUT (20:41)
[2024-06-27 20:45] LABS: Glucose, Whole Blood 279 mg/dL (60-115)
[2024-06-28] MEDS: Omeprazole 40 MG CAPSULE.DR PO (06:18)
[2024-06-28] MEDS: Acetaminophen 325 MG TABLET 650 MG PO (07:18)
[2024-06-28 08:00] VITALS: BP 140/96; PULSE 88; RESP 16; TEMP 36.2; O2SAT 97
[2024-06-28 08:08] LABS: Glucose, Whole Blood 225 mg/dL (60-115)
[2024-06-28] MEDS: Insulin Glargine,Hum.rec.anlog 100 UNIT/ML 10 ML VIAL 22 UNIT SUBCUT (08:36)
[2024-06-28] MEDS: HaloperidoL 5 MG TABLET PO (08:36)
[2024-06-28] MEDS: Insulin Lispro 100 UNIT/ML 3 ML VIAL SUBCUT ×8 (08:36→22:11)
[2024-06-28] MEDS: hydrOXYzine HCL 50 MG TABLET PO (11:30)
[2024-06-28 11:42] LABS: Glucose, Whole Blood 299 mg/dL (60-115)
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
[2024-06-28 16:48] LABS: Glucose, Whole Blood 256 mg/dL (60-115)
[2024-06-28 20:00] VITALS: BP 161/98; PULSE 103; RESP 16; TEMP 36.5; O2SAT 95
[2024-06-28 21:40] LABS: Glucose, Whole Blood 195 mg/dL (60-115)
[2024-06-28] MEDS: Insulin Glargine,Hum.rec.anlog 100 UNIT/ML 10 ML VIAL 24 UNIT SUBCUT ×2 (22:11→22:16)
[2024-06-29] MEDS: Acetaminophen 325 MG TABLET 650 MG PO (04:09)
[2024-06-29] MEDS: Omeprazole 40 MG CAPSULE.DR PO (06:07)
[2024-06-29 07:47] LABS: Glucose, Whole Blood 255 mg/dL (60-115)
[2024-06-29 07:51] VITALS: BP 158/104; PULSE 93; RESP 16; TEMP 36.4; O2SAT 98
[2024-06-29] MEDS: HaloperidoL 5 MG TABLET PO (08:00)
[2024-06-29] MEDS: Insulin Lispro 100 UNIT/ML 3 ML VIAL SUBCUT ×2 (08:01→08:03)
[2024-06-29] MEDS: Insulin Glargine,Hum.rec.anlog 100 UNIT/ML 10 ML VIAL 24 UNIT SUBCUT (08:06)
== END 2024-06-29 11:10 | disposition home or self-care (01) | DRG 885 ==
LOC: HO.ED 06-20 17:12 → HO.PADLT16 06-21 10:29
PROVIDERS: Emergency Medicine; Family Medicine; Nurse Practitioner Family; Admitting Provider Registered Nurse; Emergency Provider Emergency Medicine; PCP Internal Medicine; Visit Provider Psychiatry & Neurology Psychiatry
DX: F31.81 Bipolar II disorder (principal); E11.65 Type 2 diabetes mellitus with hyperglycemia; L72.0 Epidermal cyst; Z20.822 Contact with and (suspected) exposure to COVID-19; Z79.4 Long term (current) use of insulin; Z79.85 Long-term (current) use of injectable non-insulin antidiabetic drugs; Z79.899 Other long term (current) drug therapy
CPT/HCPCS: 0241U; 36415; 80048; 80053; 80061; 80307; 81001; 82010; 82607; 82746; 82803; 82947; 83036; 83690; 83735; 83880; 84439; 84443; 85025; 85610; 93005; 99285; S9485

== ENCOUNTER → 2024-06-20 11:15 | Outpatient (BNV) | payer OTHER, SELFPAY | PROVIDERS: Emergency Provider Emergency Medicine; PCP Internal Medicine; Visit Provider Internal Medicine Cardiovascular Disease | DX: I45.81 Long QT syndrome (principal) | CPT/HCPCS: 93010 ==

== ENCOUNTER → 2024-06-21 10:10 | Outpatient (BNV) | payer OTHER, SELFPAY | PROVIDERS: Admitting Provider Registered Nurse; Emergency Provider Emergency Medicine; PCP Internal Medicine; Visit Provider Psychiatry & Neurology Psychiatry | DX: F31.81 Bipolar II disorder (principal); E11.9 Type 2 diabetes mellitus without complications | CPT/HCPCS: 99232 ==

== ENCOUNTER → 2024-06-21 10:10 | Outpatient (BNV) | payer OTHER, SELFPAY | PROVIDERS: Admitting Provider Registered Nurse; Emergency Provider Emergency Medicine; PCP Internal Medicine; Visit Provider Surgery | DX: L72.0 Epidermal cyst (principal) | CPT/HCPCS: 99222 ==